=== PATIENT | female | born 1970 | race Caucasian/White ===

== ENCOUNTER 2019-01-21 12:45 | Outpatient (CLI) | END 2019-01-21 12:46 | disposition home or self-care (01) | LOC: RHC-LAB 12:45 | PROVIDERS: ATTEND General Practice | DX: G47.00 Insomnia, unspecified (principal); F41.9 Anxiety disorder, unspecified; F33.2 Major depressive disorder, recurrent severe without psychotic features; E03.9 Hypothyroidism, unspecified | CPT/HCPCS: 36415; 80053; 80061; 81001; 84439; 84443; 85025 ==

== ENCOUNTER 2019-02-04 16:42 | Outpatient (CLI) | END 2019-02-04 16:43 | disposition home or self-care (01) | LOC: RHC-LAB 16:42 | PROVIDERS: ATTEND General Practice | DX: G47.00 Insomnia, unspecified (principal); F41.9 Anxiety disorder, unspecified; R63.8 Other symptoms and signs concerning food and fluid intake; D64.9 Anemia, unspecified; R94.5 Abnormal results of liver function studies; E03.9 Hypothyroidism, unspecified | CPT/HCPCS: 36415; 80178 ==

== ENCOUNTER 2019-05-31 08:14 | Inpatient (IN) ==
[2019-05-31 08:52] VITALS: BMI 34.2
[2019-05-31] MEDS ORDERED: MAG-OX PO STA (10:17)
[2019-05-31] MEDS ORDERED: DULCOLAX RC STA (10:26)
[2019-05-31] MEDS: XANAX PO SCH ×2 (10:40→20:39)
[2019-05-31] MEDS: NORVASC PO SCH (10:40)
[2019-05-31] MEDS: COZAAR PO SCH ×2 (10:41→20:39)
[2019-05-31] MEDS: INFUVITE ADULT 10 ML in D5%-1/2NS-KCL 40 MEQ/L IV SOL 1,000 ML IV SCH ×2 (10:48→20:42)
--- NOTE | 2019-05-31 11:31 | DI ---
EXAM: Two-view chest HISTORY: Shortness of breath COMPARISON: None. FINDINGS: The heart is normal in size. Atherosclerotic changes are seen involving the aortic arch. There is mild elevation of the right hemidiaphragm. The lungs are clear bilaterally. IMPRESSION: No evidence of active pulmonary disease
[2019-05-31] MEDS ORDERED: PROTONIX PO STA (15:46)
[2019-05-31] MEDS ORDERED: TYLENOL PO STA (15:47)
[2019-05-31] MEDS ORDERED: INFUVITE ADULT IV ONE (20:42)
[2019-05-31] MEDS ORDERED: SEROQUEL PO SCH (21:00)
[2019-06-01] MEDS: PROTONIX PO SCH ×2 (06:13→16:50)
[2019-06-01] MEDS: SYNTHROID PO SCH ×2 (06:13)
[2019-06-01] MEDS ORDERED: INFUVITE ADULT IV ONE ×2 (07:10→17:39)
[2019-06-01] MEDS: INFUVITE ADULT 10 ML in D5%-1/2NS-KCL 40 MEQ/L IV SOL 1,000 ML IV SCH ×2 (07:17→17:43)
[2019-06-01] MEDS ORDERED: LEVOTHYROXINE 125 MCG PO SCH (09:00)
[2019-06-01] MEDS: COZAAR PO SCH ×2 (10:01→21:04)
[2019-06-01] MEDS: XANAX PO SCH ×2 (10:02→21:04)
[2019-06-01] MEDS: NORVASC PO SCH (10:02)
--- NOTE | 2019-06-01 11:23 | CT ---
EXAM: CT Head HISTORY: Headache COMPARISON: None TECHNIQUE: CT head performed without contrast FINDINGS: There is no mass effect, midline shift, or intracranial hemmorhage. Deleon white differenti ation is preserved. There is no extra-axial collection. The ventricles, sulci, and basal cisterns a re patent and symmetric. There is no depressed calvarial fracture. The mastoid air cells are clear. The visualized paranasal sinuses are clear. IMPRESSION: No acute intracranial abnormality.
--- NOTE | 2019-06-01 11:36 | DI ---
EXAM: Single contrast esophagram. History: Difficulty swallowing. Technique: Multiple sonographic images through the esophagus were obtained. Color duplex Doppler wa s used to interrogate vascular flow. Findings: The course and caliber of the esophagus are within normal limits. No mucosal lesions or filling defe cts identified. Multiple episodes of esophageal spasm. No hiatal hernia. No gastroesophageal reflu x was observed during the course of this examination. Impression: Esophageal spasm
[2019-06-01] MEDS: K-DUR PO SCH ×2 (12:07→16:50)
[2019-06-01] MEDS ORDERED: SEROQUEL PO SCH (21:00)
[2019-06-01] MEDS: SEROQUEL PO SCH (21:04)
[2019-06-02] MEDS ORDERED: INFUVITE ADULT IV ONE ×2 (03:16→15:14)
[2019-06-02] MEDS: INFUVITE ADULT 10 ML in D5%-1/2NS-KCL 40 MEQ/L IV SOL 1,000 ML IV SCH ×2 (03:17→15:18)
[2019-06-02] MEDS: PROTONIX PO SCH ×2 (05:47→16:54)
[2019-06-02] MEDS: SYNTHROID PO SCH ×2 (05:47)
[2019-06-02] MEDS: NORVASC PO SCH (08:00)
[2019-06-02] MEDS: COZAAR PO SCH ×2 (08:00→20:59)
[2019-06-02] MEDS: SEROQUEL PO SCH ×2 (08:00→20:59)
[2019-06-02] MEDS: XANAX PO SCH ×2 (08:00→20:59)
[2019-06-02] MEDS: K-DUR PO SCH ×2 (08:00→16:54)
[2019-06-02] MEDS: INDERAL PO SCH (20:59)
[2019-06-03] MEDS ORDERED: INFUVITE ADULT IV ONE ×2 (00:48→11:23)
[2019-06-03] MEDS: INFUVITE ADULT 10 ML in D5%-1/2NS-KCL 40 MEQ/L IV SOL 1,000 ML IV SCH ×2 (00:53→11:44)
[2019-06-03] MEDS: PROTONIX PO SCH (05:56)
[2019-06-03] MEDS: SYNTHROID PO SCH ×2 (05:56)
[2019-06-03] MEDS: INDERAL PO SCH (08:53)
[2019-06-03] MEDS: K-DUR PO SCH (08:53)
[2019-06-03] MEDS: NORVASC PO SCH (08:53)
[2019-06-03] MEDS: XANAX PO SCH (08:53)
[2019-06-03] MEDS: COZAAR PO SCH (08:54)
[2019-06-03] MEDS: SEROQUEL PO SCH (08:58)
--- NOTE | 2019-06-03 09:27 | PN ---
DATE OF SERVICE: 06/02/19 SUBJECTIVE: The patient is alert and responsive, not dyspneic or tachypneic and no cyanosis. Her pulse rate has increased slightly. This may be due to the Seroquel probably. OBJECTIVE: Lungs are clear. Heart is normal sinus rhythm. Abdomen no significant tenderness although she is still sensitive below the umbilicus. Her appetite has increased. She seemed to be much more alert. She now expresses what her needs, that is an improvement from where she was when she didn't care what happened. LUISITO
--- NOTE | 2019-06-03 09:42 | PN ---
DATE OF SERVICE: 06/01/19 SUBJECTIVE: Today, the patient is resting in her room. She still reports some episodes of confusion at times. She does feel like she is a bit less confused. Today, her vital signs are stable. Temperature 90.2, pulse rate 109, blood pressure has been up and down. At 5:22 this morning it was 146/78; at around 11 o'clock it was 136/92 and then it jumped up to 75/113 and then was 155/101. She does have some labile blood pressure readings up and down. Today she did go for an esophagram. She is having some hard times eating solids. She did have a recent admission in [place] for concerns for possible lithium toxicity. These records have been requested by Dr. Calhoun. We are waiting to get those records. The patient reports that sometimes liquids are any foods with consistency will cause pain, most of the time of soft foods will be fine. She is requesting a chicken salad sandwich. I will discuss this with Dr. Calhoun and see if we can order a chicken salad sandwich for the patient. She did tell me that she ate some sherbert today and that did not hurt her to eat that. She is having some issues with severe depression. We did talk about that today. We are going to work on getting her a mental health evaluation. She denies being suicidal, just complains of in general being depressed. Her potassium today was low at 2.32. Per Dr. Calhoun, replacement has been ordered. Prior to this it was 2.19. Magnesium 1.91. On 05/31/19, white count was 12.73, hemoglobin 10, hematocrit 31.3, platelet count 419. Urinalysis was negative. I did discuss with Dr. Calhoun plans were to increase the Seroquel to 50 mg at night. She is having issues with depression and will need mental health involved in her care. She has been admitted for episodes of confusion, electrolyte imbalance and hypertension evaluation. Further orders and recommendations per Dr. Calhoun. History and physical to follow. [facility]
--- NOTE | 2019-06-03 09:57 | PN ---
DATE OF SERVICE: 06/02/19 SUBJECTIVE: Today vital signs are stable. Her blood pressure at 12:52 this afternoon 126/85 (left arm), temperature 97.9, pulse rate 109. This morning at 5:15 her blood pressure 120/78, respiratory rate 20, 02 sat 99% on room air. Today, no CBC was drawn. As far as a chemistry panel, a potassium level was drawn this morning and was 3.19. This is an improvement from yesterday potassium level of 2.32. She has continued to have some mild jerking movement. She does report her swallowing is better. She is requesting some rainbow sherbert. She is swallowing soft diet without any problems. She is requesting a Coke and is feeling like she can swallow this Coke without any difficulty. She does not feel much of a difference with her depression. She denies any suicidal thoughts. Will d/c the honey thick liquid diet. I will discuss this with Dr. Calhoun. OBJECTIVE: Today on exam her lungs are clear. Heart regular rate and rhythm. Abdomen is soft and nontender. Bowel sounds are positive all four quadrants. MTDD
[2019-06-03 15:18] VITALS: BP 137/88; TEMP 97.8
--- NOTE | 2019-06-05 11:54 | DS ---
DATE OF SERVICE: 06/03/19 FINAL DIAGNOSES: 1. SEVERE HYPOKALEMIA THAT HAS BEEN CORRECTED. NORMAL POTASSIUM LEVEL TODAY. 2. MUSCULAR CONTRACTION, INTERMITTENT, MAYBE DUE TO RECENT LITHIUM TOXICITY. SHE WAS ADMITTED AT A HOSPITAL IN [place] FOR LITHIUM TOXICITY. 3. CONFUSION. 4. SEVERE DEPRESSION THAT IS BIPOLAR IN NATURE. WE PLAN ON REFERRING TO AN OUTPATIENT MENTAL HEALTH CLINIC. I DID TRY TO CALL [facility] AND THEY CURRENTLY DO NOT HAVE THE INTENSIVE OUTPATIENT PROGRAM AT THIS TIME. I DID PASS THIS ALONG TO DR. CALHOUN AND HE IS AWARE OF THAT. HE IS GOING TO LOOK INTO OTHER SERVICES FOR THE PATIENT FOR MENTAL HEALTH SERVICES. 5. MULTIPLE EPISODES OF ESOPHAGEAL SPASM FOR ESOPHAGRAM WITH DYSPHAGIA. THIS HAS IMPROVED DURING HOSPITALIZATION. 6. HYPERTENSION WITH ADJUSTMENT OF BLOOD PRESSURE MEDICINES WHILE INPATIENT. WE WILL CONTINUE TO MONITOR BLOOD PRESSURE CLOSELY WITH FOLLOWUP ON SATURDAY OF NEXT WEEK. MAY NEED FURTHER MEDICINE ADJUSTMENT. 7. HYPOTHYROIDISM. BRIEF HISTORY OF PRESENT ILLNESS/HOSPITAL COURSE: Ms. Chowdhury is a pleasant 49-year-old patient of Dr. Calhoun, who was admitted to the hospital with the above issues with electrolyte disturbances, muscular contraction, episodes of dysphagia as well as confusion and hypertension as well. She is also having issues of bipolar depression and episodes of confusion. Her electrolytes were replaced while she was in the hospital. Blood pressure medicines were adjusted. Her diet has been slowly advanced. She is able to tolerate soft diet without any difficulty. Her potassium level has corrected itself with electrolyte replacement. It is currently normal at 3.79. Her magnesium level has corrected itself now to 1.82. Medicines have been adjusted while she was in the hospital. The discharge medications are as follows. She will currently be discharged home on Inderal 10 mg twice a day, Seroquel 50 mg twice a day, Losartan 50 mg twice a day, Levothyroxine 125 mcg daily, Norvasc 5 mg daily, Lorazepam 0.5 mg one p.o. twice a day p.r.n. #60 was called in with no refills. A one month prescription was given of all medicines. Dr. Calhoun did call and talk to the pharmacist and ask that only a five day prescription be given of the medicines. She will [id number] in the office on Saturday. Dr. Calhoun did let me know that he was planning on adding Depakote maybe at a later date to help with control of the depression and planned on continuing to increase the Seroquel prescription to help manage the depression. Today, at discharge blood pressure was elevated 168/100. The patient understands to continue to monitor her blood pressure, temperature 99.5, pulse rate 102, respirations 18. I did discuss her laboratory findings. On admission her potassium was 2.19. Her magnesium level was normal at 1.70 on admission. White count was elevated at 12.73 on admission. Her hemoglobin slightly low at 10 and hematocrit slightly low at 31.3 and that was on admission. DISCHARGE DIET: Continue soft diet. DISCHARGE ACTIVITY: Gradually resume normal activity levels with emphasis on fall precautions. DISCHARGE INSTRUCTIONS: 1. The patient will followup Saturday in the office with labs at that time. 2. She will need an appointment with Mental Health services and we will be working on trying to get an appointment with Mental Health services. She denies suicidal thoughts, ideations or any homicidal thoughts at discharge. TIME SPENT: GREATER THAN 30 MINUTES MTDD
--- NOTE | 2019-06-09 13:58 | HP ---
DATE OF SERVICE: 05/31/19 CHIEF COMPLAINT: Confusion, depression, high blood pressure. HISTORY OF PRESENT ILLNESS: Ms. Chowdhury was a direct admit on the date of admission for increasing confusion. She was having some difficulty with swallowing, elevations in blood pressure, some worsening depression with bipolar symptoms. It was felt that she needed to be admitted to the hospital for further evaluation and workup. Her laboratories and initial diagnostic testing revealed a severely low potassium level of 2.19. Sodium was normal at 137.9, BUN 4.3 and creatinine 0.63. Her LFTs are normal. White count was slightly elevated at 12.73, hemoglobin 10, hematocrit 31.3, platelet count 419. She did have a chest x-ray completed that showed no evidence of active pulmonary disease. Because of her difficulty swallowing, an esophagram was completed. It did show esophageal spasms. A head CT was performed because of the confusion. It did not show any acute abnormalities. IV fluids of potassium would be initiated and potassium replacement will be started. PAST MEDICAL HISTORY: Anxiety Bipolar disorder Chronic arthritis Depression Heart disease High cholesterol Hypertension Hypothyroidism Insomnia Knee pain Seasonal allergies Meniscal tear in the knee PAST SURGICAL HISTORY: Appendectomy Arthroscopy right knee 2016, left knee 2014 Cholecystectomy Tubal ligation FAMILY HISTORY: Breast cancer in mother as well as hypertension. Father with hypertension and myocardial infarction. SOCIAL HISTORY: Nonsmoker. There are no reports of alcohol or drug abuse. MEDICATIONS: (HOME) I did discuss with Dr. Calhoun regarding the patient's home medicines she was taking prior to admission. We did review those. She was taking Levothyroxine 125 mcg daily, Losartan 50 mg twice a day and Inderal 10 mg twice a day. She was not taking any kind of depression or psychiatric medicines on any regular basis. ALLERGIES: CIPRO REVIEW OF SYSTEMS: CONSTITUTIONAL: No reports of fever, chills, or nightsweats. She has had some weight loss since I last saw her. I am unsure how much that weight was. HEENT: There were no reports of headache, nasal drainage or sore throat. No reports of any visual changes. CARDIOVASCULAR: No reports of chest pain or irregular rhythm. No palpitations. No peripheral edema. RESPIRATORY: No complaints of any shortness of breath. Denies any cough or congestion. I do not see any history of lung disease. GASTROINTESTINAL: No complaints of abdominal pain, nausea or vomiting. Denies constipation. or diarrhea. No reports of blood in the stool. GENITOURINARY: No reports of dysuria or UTI symptoms. MUSCULOSKELETAL: She was having some jerking, muscle twitching most likely due to electrolyte disturbances. NEUROLOGIC: She was having episode of confusion. No reports of any other neurological deficits reports besides she is having some worsening depression. She denies any suicidal thoughts. She is having worsening anxiety. ENDOCRINE: No reports of any history of diabetes mellitus. She does have a history of hypothyroidism. INTEGUMENT: No reports of any unusual rashes or wounds. PHYSICAL EXAMINATION: GENERAL: She is alert. She is present. She is in no acute distress. VITAL SIGNS: On admission, temperature 98.6, pulse rate 112, blood pressure 165/106, respiratory rate 16, 02 sat 97% on room air. Height 5'8", Weight 224 lbs. I did see weight loss from the last visit in the hospital 01/2019 and at that time she was 251 lbs. HEENT: Head normocephalic, atraumatic. Conjunctivae clear. NECK: Supple. No masses appreciated. No carotid bruits are auscultated. CARDIOVASCULAR: S1, S2 regular rate and rhythm. No murmurs auscultated. LUNGS: Clear, no acute distress. ABDOMEN: Soft. Nontender. Bowel sounds are positive. No rigidity or rebound tenderness. NEUROLOGIC: She is a bit slow to respond. There is occasional confusion with conversation and scattered thoughts. SKIN: Warm and dry. No overt rashes or lesions noted on exam. I did discuss the labs in the HPI as well as diagnostic testing. ASSESSMENT: 1. Significant hypokalemia. 2. Electrolyte disturbances. 3. Hypertension 4. Confusion. 5. Esophageal dysphagia. 6. Depression and Bipolar. PLAN: 1. Admit the patient. 2. Will start IV fluids. 3. We need to work on getting the patient set up with mental health services. 4. Will start Seroquel and start adjusting that to help with depression. 5. Get esophagram and start initiating soft diet and again request potassium. 6. Follow labs closely. Magnesium was normal. 7. Further orders and recommendations per Dr. Calhoun. TIME SPENT: GREATER THAN 65 MINUTES MTDD
== END 2019-06-03 15:13 | disposition home or self-care (01) | DRG 641 ==
LOC: MEDSURG B 08:14
PROVIDERS: ADMIT General Practice; ATTEND General Practice
DX: E87.8 Other disorders of electrolyte and fluid balance, not elsewhere classified; E03.9 Hypothyroidism, unspecified; I10 Essential (primary) hypertension; F32.9 Major depressive disorder, single episode, unspecified; E87.6 Hypokalemia; M62.40 Contracture of muscle, unspecified site; R13.10 Dysphagia, unspecified; R41.0 Disorientation, unspecified

== ENCOUNTER 2019-07-11 17:43 | Inpatient (IN) ==
[2019-07-11] MEDS ORDERED: SODIUM CHLORIDE 1,000 ML IV STA (18:23)
--- NOTE | 2019-07-11 18:23 | ED.PDOC ---
General <JEFE MARTINES MD - Last Filed: 07/15/19 16:21> ED Provider: Dr. JEFE MARTINES Chief Complaint: Extremity Swelling/Pain Stated Complaint: 49 years old white female c/o shortness of breath, dyspnea on exertion and lower ext edema x 1 day . she was in the [facility] for in pt psych. Time Seen by Physician: 18:00 (seen with yesenia roman at all times denied control meds , negative hx for DVT OR P.E.) Mode of Arrival: Walk-In Information Source: Patient Exam Limitations: No limitations Primary Care Provider: JUVE ESCUDERO MD Nursing and Triage Documentation Reviewed and Agree: Yes Does patient meet sepsis criteria?: No If yes, has appropriate treatment been initiated?: No System Inflammatory Response Syndrome: Not Applicable Sepsis Protocol: For patient's 13 years and over: Temp is 96.8 and below OR 101 and greater Pulse >90 BPM Resp >20/minute Acutely Altered Mental Status Are patient's symptoms suggestive of a new infection, such as: -Pneumonia -Skin, Soft Tissue -Endocarditis -UTI -Bone, Joint Infection -Implantable Device -Acute Abdominal Infection -Wound Infection -Meningitis -Blood Stream Catheter Infection -Unknown Respiratory Complaint Exam <JEFE MARTINES MD - Last Filed: 07/15/19 16:21> Shortness of Air Complaint/Exam Onset/Duration: 1 day Symptoms Are: Still present Timing: Constant Initial Severity: Mild Current Severity: Mild Character: Reports Dyspnea at rest and Dyspnea on exertion Aggravating: Reports Movement Alleviating: Reports Oxygen and Upright position Associated Signs and Symptoms: Reports Chest pain with cough, Chest pain (1/10 central), Calf swelling (bilateral) and Edema (lower ext bilateral); Denies Cough, Wheezing, Fever, Chills, Diaphoresis, Nasal congestion, Dizziness, Calf pain, Rapid breathing, Labored breathing and Decreased intake Pulmonary Embolism Risk Factors: Reports None Cardiac Risk Factors: Reports None Pseudomonas Risk Factors: Reports None Tuberculosis Risk Factors: Reports None Home Oxygen Use: No Recent Stress Test: No Recent Echo/LV Function: No Respiratory Distress: None Stridor Present: No Tracheal Deviation: No Subcutaneous Emphysema: No Accessory Muscle Use: No Retractions: Not Present Diminished Breath Sounds: Yes Prolonged Expiratory Phase: No Unable to Speak Full Sentences: No Fatigue: No Leg Swelling: Yes Grunting Respirations: No Kussmaul Respirations: No Differential Diagnoses: CHF, Pulmonary Edema, Pneumonia and Pulmonary Embolism Quality Indicator For Non-Traumatic Chest Pain/Syncope: EKG Performed Quality Indicators For Pneumonia/CAP: Vital signs and Mental status assessed Review of Systems <JEFE MARTINES MD - Last Filed: 07/15/19 16:21> Review Of Systems Constitutional: Reports No symptoms Eyes: Reports No symptoms Ears, Nose, Mouth, Throat: Reports No symptoms Respiratory: Reports Short of air Cardiac: Reports No symptoms GI: Reports No symptoms : Reports No symptoms Musculoskeletal: Reports Other (lower leg edema bilateral) Skin: Reports No symptoms Neurological: Reports No symptoms Endocrine: Reports No symptoms Hematologic/Lymphatic: Reports No symptoms All Other Systems: Reviewed and Negative PFSH <JEFE MARTINES MD - Last Filed: 07/15/19 16:21> Medical History (Updated 07/12/19 @ 00:25 by DARIEN CARTY) DVT (deep venous thrombosis) (Acute) Anxiety Bipolar disorder Chronic arthritis Depression Heart disease High cholesterol Hypertension Hypothyroidism Insomnia Knee pain Seasonal allergies Tear meniscus knee Social History (Updated 07/12/19 @ 00:23 by DARIEN CARTY) Smoking and tobacco status: Former smoker Substance use type: does not use Physical Exam <JEFE MARTINES MD - Last Filed: 07/15/19 16:21> Physical Exam Appearance: Well-appearing, No pain distress and Well-nourished Ill-appearing: Mild Pain Distress: Mild Eyes: JOE, EOMI and Conjunctiva clear ENT: Ears normal, Nose normal and Oropharynx normal Neck: Supple Respiratory: Airway patent, Breath sounds clear, Breath sounds equal and Respirations nonlabored Cardiovascular: RRR, Pulses normal, No rub and No murmur GI/: Soft, Nontender, No masses, Bowel sounds normal and No Organomegaly Musculoskeletal: Normal strength, ROM intact, No edema and No calf tenderness Skin: Warm, Dry and Normal color Neurological: Sensation intact, Motor intact, Reflexes intact, Cranial nerves intact, Alert and Oriented Psychiatric: Affect appropriate and Mood appropriate Critical Care Note <JEFE MARTINES MD - Last Filed: 07/15/19 16:21> Critical Care Note Total Time (mins): 0 Course <JEFE MARTINES MD - Last Filed: 07/15/19 16:21> Course Hematology/Chemistry: 07/15/19 05:05 11/27/19 05:05 Orders, Labs, Meds: Lab Review 07/11/19 07/11/19 07/11/19 18:22 18:30 18:39 WBC 10.08 RBC 3.43 L Hgb 9.0 L Hct 29.9 L MCV 87.2 MCH 26.2 L MCHC 30.1 L RDW Coeff of [place] 14.8 Plt Count 367 Neutrophils % (Manual) 76.0 H Band Neutrophils % 3.0 Lymphocytes % (Manual) 15.0 Metamyelocytes % 1.0 Myelocytes % 5.0 H Plt Morphology Comment Occ large Polychromasia Hypochromasia 1+ Anisocytosis 1+ PT INR APTT Puncture Site Rrad O2 Saturation 95.0 ABG pH 7.414 ABG pCO2 29.9 L ABG pO2 73.0 L ABG HCO3 19.1 L ABG Total CO2 20 L ABG Base Excess -5 L Iban Test + FiO2 % 21.0 Sodium Potassium Chloride Carbon Dioxide Anion Gap BUN Creatinine Estimated GFR (MDRD) BUN/Creatinine Ratio Glucose Lactic Acid Calcium Total Bilirubin AST ALT Alkaline Phosphatase Total Creatine Kinase Troponin I NT-Pro-B Natriuret Pep Total Protein Albumin Globulin Albumin/Globulin Ratio Procalcitonin TSH Free T4 Serum , Qual Influ A Molecular Assay Negative by naat Influ B Molecular Assay Negative by naat 07/11/19 07/11/19 07/11/19 18:39 18:39 18:39 WBC RBC Hgb Hct MCV MCH MCHC RDW Coeff of [place] Plt Count Neutrophils % (Manual) Band Neutrophils % Lymphocytes % (Manual) Metamyelocytes % Myelocytes % Plt Morphology Comment Polychromasia Hypochromasia Anisocytosis PT 9.2 L INR 0.94 APTT 23.9 Puncture Site O2 Saturation ABG pH ABG pCO2 ABG pO2 ABG HCO3 ABG Total CO2 ABG Base Excess Iban Test FiO2 % Sodium 138.8 Potassium 4.06 Chloride 104.8 Carbon Dioxide 22.3 Anion Gap 15.76 BUN 11.6 Creatinine 0.66 Estimated GFR (MDRD) 96.00 BUN/Creatinine Ratio 17.57 Glucose 304.6 H Lactic Acid Calcium 9.36 Total Bilirubin 0.27 AST 38.9 H ALT 33.1 Alkaline Phosphatase 62.9 Total Creatine Kinase 36.7 Troponin I < 0.012 NT-Pro-B Natriuret Pep Total Protein 7.39 Albumin 4.42 Globulin 2.97 Albumin/Globulin Ratio 1.48 Procalcitonin < 0.05 TSH 0.137 L Free T4 Serum , Qual Influ A Molecular Assay Influ B Molecular Assay 07/11/19 07/11/19 07/11/19 18:39 18:39 18:39 WBC RBC Hgb Hct MCV MCH MCHC RDW Coeff of [place] Plt Count Neutrophils % (Manual) Band Neutrophils % Lymphocytes % (Manual) Metamyelocytes % Myelocytes % Plt Morphology Comment Polychromasia Hypochromasia Anisocytosis PT INR APTT Puncture Site O2 Saturation ABG pH ABG pCO2 ABG pO2 ABG HCO3 ABG Total CO2 ABG Base Excess Iban Test FiO2 % Sodium Potassium Chloride Carbon Dioxide Anion Gap BUN Creatinine Estimated GFR (MDRD) BUN/Creatinine Ratio Glucose Lactic Acid 3.87 H Calcium Total Bilirubin AST ALT Alkaline Phosphatase Total Creatine Kinase Troponin I NT-Pro-B Natriuret Pep Total Protein Albumin Globulin Albumin/Globulin Ratio Procalcitonin TSH Free T4 1.06 Serum , Qual Negative Influ A Molecular Assay Influ B Molecular Assay 07/11/19 18:39 WBC RBC Hgb Hct MCV MCH MCHC RDW Coeff of [place] Plt Count Neutrophils % (Manual) Band Neutrophils % Lymphocytes % (Manual) Metamyelocytes % Myelocytes % Plt Morphology Comment Polychromasia Hypochromasia Anisocytosis PT INR APTT Puncture Site O2 Saturation ABG pH ABG pCO2 ABG pO2 ABG HCO3 ABG Total CO2 ABG Base Excess Iban Test FiO2 % Sodium Potassium Chloride Carbon Dioxide Anion Gap BUN Creatinine Estimated GFR (MDRD) BUN/Creatinine Ratio Glucose Lactic Acid Calcium Total Bilirubin AST ALT Alkaline Phosphatase Total Creatine Kinase Troponin I NT-Pro-B Natriuret Pep 57.000 Total Protein Albumin Globulin Albumin/Globulin Ratio Procalcitonin TSH Free T4 Serum , Qual Influ A Molecular Assay Influ B Molecular Assay Orders Category Date Time Status ADMIT PATIENT INPATIENT .TO [facility] (MONITORED BED) ADMISSION 07/11/19 21:05 Active ABG DRAW REQUEST Stat CARDIO 07/11/19 18:22 Completed EKG-(ED ONLY) Stat CARDIO 07/11/19 18:22 Completed OXYGEN Routine CARDIO 07/11/19 21:08 Completed ACTIVITY .Up ad Mera CARE 07/11/19 21:06 Active GIVE HS SNACK 2100 CARE 07/11/19 21:07 Active INTAKE & OUTPUT Q8HR CARE 07/11/19 21:06 Active NPO REMINDER: IMAGING ONCE CARE 07/11/19 18:48 Completed TELEMETRY MONITORING TELE CARE 07/11/19 21:05 Active VITAL SIGNS Q4HR CARE 07/11/19 21:06 Active ADA 1800 ANN MARIE. DIET DIETARY 07/11/19 Breakfast Completed HS SNACK DIETARY 07/11/19 Dinner Completed ED IV/MEDIPORT/POWERPORT .ONCE EMERGENCY 07/11/19 18:23 Active ABG Stat LAB 07/11/19 18:22 Completed BLOOD CULTURE Stat LAB 07/11/19 19:00 Results CBC W/ AUTO DIFF Stat LAB 07/11/19 18:39 Completed COMPREHENSIVE METABOLIC PANEL Stat LAB 07/11/19 18:39 Completed CREATINE KINASE Stat LAB 07/11/19 18:39 Completed FLU A/B MOLECULAR Stat LAB 07/11/19 18:30 Completed FREE T4 (FREE THYROXINE) Stat LAB 07/11/19 18:39 Completed LACTIC ACID Stat LAB 07/11/19 18:39 Completed MANUAL DIFFERENTIAL Stat LAB 07/11/19 18:39 Completed MOLECULAR GROUP A STREP Stat LAB 07/11/19 18:30 Completed NT-PROBNP Stat LAB 07/11/19 18:39 Completed PARTIAL THROMBOPLASTIN TIME Stat LAB 07/11/19 18:39 Completed PROCALCITONIN Stat LAB 07/11/19 18:39 Completed PT WITH INR Stat LAB 07/11/19 18:39 Completed SERUM Stat LAB 07/11/19 18:39 Completed THYROID STIMULATING HORMONE Stat LAB 07/11/19 18:39 Completed TROPONIN I Stat LAB 07/11/19 18:39 Completed 0.9 % Sodium Chloride [Saline Flush] MEDS 07/11/19 18:23 Discontinued 1 syr IVF PRN PRN Albuterol Sulfate 0.042% Neb [Albuterol 0.042% Neb] MEDS 07/12/19 00:00 Discontinued 1.25 mg NEB RTQ6H Ceftriaxone/D5w 1 gm Premix [Rocephin 1 gm/50 ml D5w] MEDS 07/12/19 09:00 Discontinued 1 gm in 50 ml IV DAILY Sodium Chloride 0.9% [Sodium Chloride] 1,000 ml MEDS 07/11/19 18:23 Discontinued IV 125 mls/hr CHEST, 1V AP ONLY Stat RADS 07/11/19 18:[address] CHEST PE PROTOCOL Stat RADS 07/11/19 18:48 Completed Medications Discontinued Medications Generic Name Dose Route Start Last Admin Trade Name Freq PRN Reason Stop Dose Admin Acetaminophen 650 mg 07/13/19 20:01 07/13/19 20:41 Tylenol PO 650 mg Q6H PRN Administration pain Albuterol Sulfate 1.25 mg 07/12/19 00:00 07/12/19 05:44 Albuterol 0.042% Neb NEB Not Given RTQ6H DILLON Amlodipine Besylate 5 mg 07/12/19 09:00 07/12/19 09:01 Norvasc PO 5 mg DAILY DILLON Administration Amlodipine Besylate 2.5 mg 07/13/19 09:00 07/15/19 09:07 Norvasc PO 2.5 mg DAILY DILLON Administration Azithromycin 500 mg 07/12/19 09:00 07/14/19 09:28 Zithromax PO 07/15/19 08:59 500 mg DAILY DILLON Administration Benzocaine/Menthol 2 lozenge 07/13/19 20:27 07/13/19 20:41 Cepacol Sore Throat Lozenge MUCOUSMEMB 2 lozenge PRN PRN Administration sore throat Carvedilol 12.5 mg 07/12/19 08:00 07/15/19 09:08 Coreg PO 12.5 mg BIDWM DILLON Administration Clonazepam 0.5 mg 07/11/19 23:30 07/15/19 09:08 Klonopin PO 0.5 mg TID DILLON Administration Duloxetine HCl 60 mg 07/14/19 10:30 07/15/19 09:09 Cymbalta PO 60 mg DAILY DILLON Administration Enoxaparin Sodium 40 mg 07/12/19 09:00 07/15/19 09:07 Lovenox SUBCUT 40 mg DAILY DILLON Administration Furosemide 40 mg 07/13/19 09:55 07/13/19 10:59 Lasix IVP 07/13/19 09:56 40 mg ONCE STA Administration Furosemide 40 mg 07/15/19 11:12 07/15/19 11:29 Lasix Tab PO 07/15/19 11:13 40 mg ONCE STA Administration Sodium Chloride 1,000 mls @ 125 mls/hr 07/11/19 18:23 07/11/19 19:37 Sodium Chloride IV 07/12/19 02:22 125 mls/hr .Q8H STA Administration CEFTRIAXONE/D5W 1 GM PREMIX 1 gm in 50 mls @ 75 mls/hr 07/12/19 09:00 07/14 09:25 Rocephin 1 Gm/50 Ml D5w IV 07/15/19 08:59 75 mls/hr DAILY DILLON Administration Vancomycin HCl 1 gm/ Sodium 250 mls @ 250 mls/hr 07/11/19 21:12 07/11/19 23:30 Chloride IV 07/11/19 22:11 250 mls/hr ONCE STA Administration Multivitamins/Minerals 10 ml/ 1,010 mls @ 100 mls/hr 07/12/19 06:00 07/13/19 00:02 Sodium Chloride IV 100 mls/hr .Q10H6M DILLON Administration Insulin Human Regular 0 unit 07/11/19 21:14 07/15/19 12:08 Humulin R SUBCUT 1 unit PRN PRN Administration Hyperglycemia Protocol Lamotrigine 175 mg 07/11/19 23:30 07/14/19 20:52 Lamictal PO 175 mg BEDTIME DILLON Administration Levothyroxine Sodium 100 mcg 07/12/19 06:30 07/15/19 06:18 Synthroid PO 100 mcg 0630 DILLON Administration Levothyroxine Sodium 25 mcg 07/12/19 06:30 07/15/19 06:19 Synthroid PO 25 mcg 0630 DILLON Administration Losartan Potassium 50 mg 07/12/19 09:00 07/15/19 09:08 Cozaar PO 50 mg BID DILLON Administration Olanzapine 10 mg 07/11/19 23:30 07/15/19 09:08 Zyprexa PO 10 mg DAILY DILLON Administration Pantoprazole Sodium 40 mg 07/13/19 07:30 07/15/19 06:19 Protonix PO 40 mg BIDAC DILLON Administration Propranolol HCl 10 mg 07/12/19 09:00 Inderal PO BID DILLON Quetiapine Fumarate 50 mg 07/12/19 09:00 Seroquel PO BID DILLON Silver Sulfadiazine 1 applic 07/14/19 15:00 Silvadene Cream TP BID DILLON Sodium Chloride 1 syr 07/11/19 18:23 Saline Flush IVF PRN PRN To flush IV Sodium Chloride 1 syr 07/13/19 13:00 07/15/19 06:19 Saline Flush IVF 1 syr Q8HR DILLON Administration Zolpidem Tartrate 10 mg 07/11/19 23:13 07/14/19 20:53 Ambien PO 10 mg BEDTIME PRN Administration Insomnia Vital Signs: Temp Pulse Resp BP Pulse Ox 07/11/19 19:02 119 H 26 H 118/75 07/11/19 17:44 99.1 F 128 H 32 H 162/89 H 94 L <VIPUL MCCLELLAND MD - Last Filed: 07/11/19 21:05> Course Orders, Labs, Meds: Lab Review 07/11/19 07/11/19 07/11/19 18:22 18:30 18:39 WBC 10.08 RBC 3.43 L Hgb 9.0 L Hct 29.9 L MCV 87.2 MCH 26.2 L MCHC 30.1 L RDW Coeff of [place] 14.8 Plt Count 367 Neutrophils % (Manual) 76.0 H Band Neutrophils % 3.0 Lymphocytes % (Manual) 15.0 Metamyelocytes % 1.0 Myelocytes % 5.0 H Plt Morphology Comment Occ large Polychromasia Hypochromasia 1+ Anisocytosis 1+ PT INR APTT Puncture Site Rrad O2 Saturation 95.0 ABG pH 7.414 ABG pCO2 29.9 L ABG pO2 73.0 L ABG HCO3 19.1 L ABG Total CO2 20 L ABG Base Excess -5 L Iban Test + FiO2 % 21.0 Sodium Potassium Chloride Carbon Dioxide Anion Gap BUN Creatinine Estimated GFR (MDRD) BUN/Creatinine Ratio Glucose Lactic Acid Calcium Total Bilirubin AST ALT Alkaline Phosphatase Total Creatine Kinase Troponin I NT-Pro-B Natriuret Pep Total Protein Albumin Globulin Albumin/Globulin Ratio Procalcitonin TSH Free T4 Serum , Qual Influ A Molecular Assay Negative by naat Influ B Molecular Assay Negative by naat 07/11/19 07/11/19 07/11/19 18:39 18:39 18:39 WBC RBC Hgb Hct MCV MCH MCHC RDW Coeff of [place] Plt Count Neutrophils % (Manual) Band Neutrophils % Lymphocytes % (Manual) Metamyelocytes % Myelocytes % Plt Morphology Comment Polychromasia Hypochromasia Anisocytosis PT 9.2 L INR 0.94 APTT 23.9 Puncture Site O2 Saturation ABG pH ABG pCO2 ABG pO2 ABG HCO3 ABG Total CO2 ABG Base Excess Iban Test FiO2 % Sodium 138.8 Potassium 4.06 Chloride 104.8 Carbon Dioxide 22.3 Anion Gap 15.76 BUN 11.6 Creatinine 0.66 Estimated GFR (MDRD) 96.00 BUN/Creatinine Ratio 17.57 Glucose 304.6 H Lactic Acid Calcium 9.36 Total Bilirubin 0.27 AST 38.9 H ALT 33.1 Alkaline Phosphatase 62.9 Total Creatine Kinase 36.7 Troponin I < 0.012 NT-Pro-B Natriuret Pep Total Protein 7.39 Albumin 4.42 Globulin 2.97 Albumin/Globulin Ratio 1.48 Procalcitonin < 0.05 TSH 0.137 L Free T4 Serum , Qual Influ A Molecular Assay Influ B Molecular Assay 07/11/19 07/11/19 07/11/19 18:39 18:39 18:39 WBC RBC Hgb Hct MCV MCH MCHC RDW Coeff of [place] Plt Count Neutrophils % (Manual) Band Neutrophils % Lymphocytes % (Manual) Metamyelocytes % Myelocytes % Plt Morphology Comment Polychromasia Hypochromasia Anisocytosis PT INR APTT Puncture Site O2 Saturation ABG pH ABG pCO2 ABG pO2 ABG HCO3 ABG Total CO2 ABG Base Excess Iban Test FiO2 % Sodium Potassium Chloride Carbon Dioxide Anion Gap BUN Creatinine Estimated GFR (MDRD) BUN/Creatinine Ratio Glucose Lactic Acid 3.87 H Calcium Total Bilirubin AST ALT Alkaline Phosphatase Total Creatine Kinase Troponin I NT-Pro-B Natriuret Pep Total Protein Albumin Globulin Albumin/Globulin Ratio Procalcitonin TSH Free T4 1.06 Serum , Qual Negative Influ A Molecular Assay Influ B Molecular Assay 07/11/19 18:39 WBC RBC Hgb Hct MCV MCH MCHC RDW Coeff of [place] Plt Count Neutrophils % (Manual) Band Neutrophils % Lymphocytes % (Manual) Metamyelocytes % Myelocytes % Plt Morphology Comment Polychromasia Hypochromasia Anisocytosis PT INR APTT Puncture Site O2 Saturation ABG pH ABG pCO2 ABG pO2 ABG HCO3 ABG Total CO2 ABG Base Excess Iban Test FiO2 % Sodium Potassium Chloride Carbon Dioxide Anion Gap BUN Creatinine Estimated GFR (MDRD) BUN/Creatinine Ratio Glucose Lactic Acid Calcium Total Bilirubin AST ALT Alkaline Phosphatase Total Creatine Kinase Troponin I NT-Pro-B Natriuret Pep 57.000 Total Protein Albumin Globulin Albumin/Globulin Ratio Procalcitonin TSH Free T4 Serum , Qual Influ A Molecular Assay Influ B Molecular Assay Orders Category Date Time Status ADMIT PATIENT INPATIENT .TO [facility] (MONITORED BED) ADMISSION 07/11/19 21:05 Active ABG DRAW REQUEST Stat CARDIO 07/11/19 18:22 Completed EKG-(ED ONLY) Stat CARDIO 07/11/19 18:22 Completed OXYGEN Routine CARDIO 07/11/19 21:08 Completed ACTIVITY .Up ad Mera CARE 07/11/19 21:06 Active GIVE HS SNACK 2100 CARE 07/11/19 21:07 Active INTAKE & OUTPUT Q8HR CARE 07/11/19 21:06 Active NPO REMINDER: IMAGING ONCE CARE 07/11/19 18:48 Completed TELEMETRY MONITORING TELE CARE 07/11/19 21:05 Active VITAL SIGNS Q4HR CARE 07/11/19 21:06 Active ADA 1800 [address] MARIE. DIET DIETARY 07/11/19 Breakfast Completed HS SNACK DIETARY 07/11/19 Dinner Completed ED IV/MEDIPORT/POWERPORT .ONCE EMERGENCY 07/11/19 18:23 Active ABG Stat LAB 07/11/19 18:22 Completed BLOOD CULTURE Stat LAB 07/11/19 19:00 Results CBC W/ AUTO DIFF Stat LAB 07/11/19 18:39 Completed COMPREHENSIVE METABOLIC PANEL Stat LAB 07/11/19 18:39 Completed CREATINE KINASE Stat LAB 07/11/19 18:39 Completed FLU A/B MOLECULAR Stat LAB 07/11/19 18:30 Completed FREE T4 (FREE THYROXINE) Stat LAB 07/11/19 18:39 Completed LACTIC ACID Stat LAB 07/11/19 18:39 Completed MANUAL DIFFERENTIAL Stat LAB 07/11/19 18:39 Completed MOLECULAR GROUP A STREP Stat LAB 07/11/19 18:30 Completed NT-PROBNP Stat LAB 07/11/19 18:39 Completed PARTIAL THROMBOPLASTIN TIME Stat LAB 07/11/19 18:39 Completed PROCALCITONIN Stat LAB 07/11/19 18:39 Completed PT WITH INR Stat LAB 07/11/19 18:39 Completed SERUM Stat LAB 07/11/19 18:39 Completed THYROID STIMULATING HORMONE Stat LAB 07/11/19 18:39 Completed TROPONIN I Stat LAB 07/11/19 18:39 Completed 0.9 % Sodium Chloride [Saline Flush] MEDS 07/11/19 18:23 Discontinued 1 syr IVF PRN PRN Albuterol Sulfate 0.042% Neb [Albuterol 0.042% Neb] MEDS 07/12/19 00:00 Discontinued 1.25 mg NEB RTQ6H Ceftriaxone/D5w 1 gm Premix [Rocephin 1 gm/50 ml D5w] MEDS 07/12/19 09:00 Discontinued 1 gm in 50 ml IV DAILY Sodium Chloride 0.9% [Sodium Chloride] 1,000 ml MEDS 07/11/19 18:23 Discontinued IV 125 mls/hr CHEST, 1V AP ONLY Stat RADS 07/11/19 18:[address] CHEST PE PROTOCOL Stat RADS 07/11/19 18:48 Completed Medications Discontinued Medications Generic Name Dose Route Start Last Admin Trade Name Freq PRN Reason Stop Dose Admin Acetaminophen 650 mg 07/13/19 20:01 07/13/19 20:41 Tylenol PO 650 mg Q6H PRN Administration pain Albuterol Sulfate 1.25 mg 07/12/19 00:00 07/12/19 05:44 Albuterol 0.042% Neb NEB Not Given RTQ6H DILLON Amlodipine Besylate 5 mg 07/12/19 09:00 07/12/19 09:01 Norvasc PO 5 mg DAILY DILLON Administration Amlodipine Besylate 2.5 mg 07/13/19 09:00 07/15/19 09:07 Norvasc PO 2.5 mg DAILY DILLON Administration Azithromycin 500 mg 07/12/19 09:00 07/14/19 09:28 Zithromax PO 07/15/19 08:59 500 mg DAILY DILLON Administration Benzocaine/Menthol 2 lozenge 07/13/19 20:27 07/13/19 20:41 Cepacol Sore Throat Lozenge MUCOUSMEMB 2 lozenge PRN PRN Administration sore throat Carvedilol 12.5 mg 07/12/19 08:00 07/15/19 09:08 Coreg PO 12.5 mg BIDWM DILLON Administration Clonazepam 0.5 mg 07/11/19 23:30 07/15/19 09:08 Klonopin PO 0.5 mg TID DILLON Administration Duloxetine HCl 60 mg 07/14/19 10:30 07/15/19 09:09 Cymbalta PO 60 mg DAILY DILLON Administration Enoxaparin Sodium 40 mg 07/12/19 09:00 07/15/19 09:07 Lovenox SUBCUT 40 mg DAILY DILLON Administration Furosemide 40 mg 07/13/19 09:55 07/13/19 10:59 Lasix IVP 07/13/19 09:56 40 mg ONCE STA Administration Furosemide 40 mg 07/15/19 11:12 07/15/19 11:29 Lasix Tab PO 07/15/19 11:13 40 mg ONCE STA Administration Sodium Chloride 1,000 mls @ 125 mls/hr 07/11/19 18:23 07/11/19 19:37 Sodium Chloride IV 07/12/19 02:22 125 mls/hr .Q8H STA Administration CEFTRIAXONE/D5W 1 GM PREMIX 1 gm in 50 mls @ 75 mls/hr 07/12/19 09:00 07/14/19 09:25 Rocephin 1 Gm/50 Ml D5w IV 07/15/19 08:59 75 mls/hr DAILY DILLON Administration Vancomycin HCl 1 gm/ Sodium 250 mls @ 250 mls/hr 07/11/19 21:12 07/11/19 23:30 Chloride IV 07/11/19 22:11 250 mls/hr ONCE STA Administration Multivitamins/Minerals 10 ml/ 1,010 mls @ 100 mls/hr 07/12/19 06:00 07/13/19 00:02 Sodium Chloride IV 100 mls/hr .Q10H6M DILLON Administration Insulin Human Regular 0 unit 07/11/19 21:14 07/15/19 12:08 Humulin R SUBCUT 1 unit PRN PRN Administration Hyperglycemia Protocol Lamotrigine 175 mg 07/11/19 23:30 07/14/19 20:52 Lamictal PO 175 mg BEDTIME DILLON Administration Levothyroxine Sodium 100 mcg 07/12/19 06:30 07/15/19 06:18 Synthroid PO 100 mcg 0630 DILLON Administration Levothyroxine Sodium 25 mcg 07/12/19 06:30 07/15/19 06:19 Synthroid PO 25 mcg 0630 DILLON Administration Losartan Potassium 50 mg 07/12/19 09:00 07/15/19 09:08 Cozaar PO 50 mg BID DILLON Administration Olanzapine 10 mg 07/11/19 23:30 07/15/19 09:08 Zyprexa PO 10 mg DAILY DILLON Administration Pantoprazole Sodium 40 mg 07/13/19 07:30 07/15/19 06:19 Protonix PO 40 mg BIDAC DILLON Administration Propranolol HCl 10 mg 07/12/19 09:00 Inderal PO BID DILLON Quetiapine Fumarate 50 mg 07/12/19 09:00 Seroquel PO BID DILLON Silver Sulfadiazine 1 applic 07/14/19 15:00 Silvadene Cream TP BID DILLON Sodium Chloride 1 syr 07/11/19 18:23 Saline Flush IVF PRN PRN To flush IV Sodium Chloride 1 syr 07/13/19 13:00 07/15/19 06:19 Saline Flush IVF 1 syr Q8HR DILLON Administration Zolpidem Tartrate 10 mg 07/11/19 23:13 07/14/19 20:53 Ambien PO 10 mg BEDTIME PRN Administration Insomnia Vital Signs: Temp Pulse Resp BP Pulse Ox 07/11/19 19:02 119 H 26 H 118/75 07/11/19 17:44 99.1 F 128 H 32 H 162/89 H 94 L Discharge Plan Discharge Patient Disposition: ADMITTED INPATIENT Discharge Problem: Edema of lower extremity, Acute dyspnea Instructions: Dyspnea (ED) Additional Instructions: Advance activities as tolerated. Resume home medications. No new Prescriptions. Call Dr Calhoun office to make a follow up appointment. If Shortness of Breath returns please contact Dr Calhoun or return to Emergency Department. ED Provider: VIPUL MCCLELLAND Condition: Good Discharge Date/Time: 07/11/19 22:03
--- NOTE | 2019-07-11 19:52 | DI ---
EXAM: Chest 1 view. HISTORY: Short of breath. COMPARISON: 05/31/2019. FINDINGS: Cardiac silhouette appears upper normal considering portable technique. There is slightly prominent bronchovascular markings lung bases. No lobar consolidation pneumonia seen. There is no p leural effusion. There is minimal elevation right hemidiaphragm. Deformity of the mid shaft of the right clavicle consist with old fracture. Impression 1. Cardiac silhouette upper normal size. 2. No pulmonary edema, localized pneumonia or pleural fluid. Minimal prominence of the bronchovascu lar markings seen in the lung bases, correlate clinically regarding mild bronchitis.
--- NOTE | 2019-07-11 20:52 | CT ---
EXAM: CTA chest HISTORY: Shortness of breath COMPARISON: None. FINDINGS: Contiguous axial images obtained through the thorax following intravenous contrast utilizi ng 3-mm collimation. Sagittal and coronal reconstructions were imaged and reviewed. Source images w ere utilized to create rotating 3-D MIP images.. The thoracic inlet is unremarkable. There is no ev idence of hilar mediastinal lymphadenopathy. The heart is enlarged without pericardial effusion.. T here is no evidence of pulmonary embolus... Dependent atelectasis is seen in both posterior gutter r egions. Scattered ground-glass opacities noted which may be related to edema or infiltrate. There h as been prior cholecystectomy. The liver is enlarged with diffuse fatty infiltration.. Bone window reveals no evidence of lytic or blastic lesions. IMPRESSION: No evidence of pulmonary embolus. Cardiomegaly Bibasilar atelectasis with diffuse ground-glass opacity as described
[2019-07-11] MEDS ORDERED: VANCOMYCIN 1 GM in SODIUM CHLORIDE 250 ML IV STA (21:12)
[2019-07-11] MEDS: KLONOPIN PO SCH (23:29)
[2019-07-11] MEDS: LAMICTAL PO SCH (23:29)
[2019-07-11] MEDS: ZYPREXA PO SCH (23:30)
[2019-07-11] MEDS: AMBIEN PO PRN (23:30)
[2019-07-12 00:42] VITALS: BMI 39.4
[2019-07-12] MEDS: ALBUTEROL 0.042% NEB NEB SCH ×2 (03:15→05:44)
[2019-07-12] MEDS ORDERED: INFUVITE ADULT IV ONE ×3 (04:21→23:59)
[2019-07-12] MEDS: INFUVITE ADULT 10 ML in SODIUM CHLORIDE 1,000 ML IV SCH ×2 (04:30→14:56)
[2019-07-12] MEDS: SYNTHROID PO SCH ×2 (06:05→06:06)
[2019-07-12] MEDS ORDERED: NORVASC PO SCH (09:00)
[2019-07-12] MEDS ORDERED: ATIVAN PO SCH (09:00)
[2019-07-12] MEDS ORDERED: INDERAL PO SCH (09:00)
[2019-07-12] MEDS ORDERED: SEROQUEL PO SCH (09:00)
[2019-07-12] MEDS: ZYPREXA PO SCH (09:01)
[2019-07-12] MEDS: COREG PO SCH ×2 (09:01→16:51)
[2019-07-12] MEDS: ROCEPHIN 1 GM/50 ML D5W 1 GM/50 ML BAG IV SCH (09:01)
[2019-07-12] MEDS: KLONOPIN PO SCH ×3 (09:01→20:17)
[2019-07-12] MEDS: COZAAR PO SCH ×2 (09:01→20:17)
[2019-07-12] MEDS: LOVENOX SUBCUT SCH (09:03)
[2019-07-12] MEDS: ZITHROMAX PO SCH (09:03)
[2019-07-12] MEDS: HUMULIN R SUBCUT PRN (11:30)
[2019-07-12] MEDS: LAMICTAL PO SCH (20:16)
[2019-07-12] MEDS: AMBIEN PO PRN (20:28)
[2019-07-13] MEDS: INFUVITE ADULT 10 ML in SODIUM CHLORIDE 1,000 ML IV SCH (00:02)
[2019-07-13] MEDS: SYNTHROID PO SCH ×2 (06:11→06:12)
--- NOTE | 2019-07-13 08:57 | DI ---
EXAM: Chest two views HISTORY: Increased shortness of breath FINDINGS: Compared to 07/11/2019. Low lung volumes limits the exam. Heart size is within normal li mits. Mild infiltrates in the central and lower lung zones are suggested with also probable atelecta sis. These were not seen previously. No visible pleural fluid or pneumothorax. IMPRESSION: 1. Mild basilar densities could represent infiltrates from vascular congestion or less likely pneumo frida. Atelectasis is a probable contributor. Correlate clinically.
[2019-07-13] MEDS: NORVASC PO SCH (09:23)
[2019-07-13] MEDS: PROTONIX PO SCH ×2 (09:23→17:11)
[2019-07-13] MEDS: COZAAR PO SCH ×2 (09:24→20:40)
[2019-07-13] MEDS: ROCEPHIN 1 GM/50 ML D5W 1 GM/50 ML BAG IV SCH (09:24)
[2019-07-13] MEDS: ZITHROMAX PO SCH (09:24)
[2019-07-13] MEDS: LOVENOX SUBCUT SCH (09:24)
[2019-07-13] MEDS: ZYPREXA PO SCH (09:24)
[2019-07-13] MEDS: COREG PO SCH ×2 (09:24→17:11)
[2019-07-13] MEDS: KLONOPIN PO SCH ×3 (09:24→20:40)
[2019-07-13] MEDS ORDERED: LASIX IVP STA (09:55)
--- NOTE | 2019-07-13 10:18 | US ---
EXAM: ULTRASOUND LOWER EXTREMITY VENOUS DOPPLER EXAM HISTORY: Leg edema. FINDINGS: Bilateral lower extremity venous Doppler exam. Real time hartmann-scale, Doppler spectral meche lysis and color-flow Doppler imaging performed. The veins targeted for evaluation include the common femoral, greater saphenous, profundus, femoral, popliteal, peroneal, anterior tibial and posterior t ibial. The evaluated veins demonstrated normal spontaneous flow and compression without evidence o f thrombosis. IMPRESSION: No venous thrombosis identified within the areas evaluated.
[2019-07-13] MEDS ORDERED: TYLENOL PO PRN (20:01)
[2019-07-13] MEDS ORDERED: CEPACOL SORE THROAT LOZENGE MUCOUSMEMB PRN (20:27)
[2019-07-13] MEDS: LAMICTAL PO SCH (20:40)
[2019-07-13] MEDS: AMBIEN PO PRN (20:41)
[2019-07-14] MEDS: SYNTHROID PO SCH ×2 (05:39)
[2019-07-14] MEDS: PROTONIX PO SCH ×2 (05:39→17:13)
[2019-07-14] MEDS: ROCEPHIN 1 GM/50 ML D5W 1 GM/50 ML BAG IV SCH (09:25)
[2019-07-14] MEDS: NORVASC PO SCH (09:26)
[2019-07-14] MEDS: ZYPREXA PO SCH (09:27)
[2019-07-14] MEDS: COZAAR PO SCH ×2 (09:27→20:53)
[2019-07-14] MEDS: KLONOPIN PO SCH ×3 (09:27→20:53)
[2019-07-14] MEDS: COREG PO SCH ×2 (09:28→17:13)
[2019-07-14] MEDS: ZITHROMAX PO SCH (09:28)
[2019-07-14] MEDS: LOVENOX SUBCUT SCH (09:30)
--- NOTE | 2019-07-14 09:33 | PCM.CONS ---
CONSULTING PROVIDER: Dr. YARELIS TRUJILLO ATTENDING PROVIDER: [facility] DATE OF SERVICE: 07/14/19 SUBJECTIVE: This 49 year old /WHITE F was hospitalized 07/11/19 with pneumonia. The patient had fluid overload. She was given 40mg of Lasix and put out over 6 of li ters of urine. Condition has improved clinically. REVIEW OF SYSTEMS: CONSTITUTIONAL: No night sweats. No fatigue, malaise, lethargy. No fever or chills. HEENT: Eyes: No visual changes. No eye pain. No eye discharge. ENT: No runny nose. No epistaxis. No sinus pain. No odynophagia. No congestion. RESPIRATORY: Mild cough, no congestion. No hemoptysis. No shortness of breath. CARDIOVASCULAR: No angina symptoms. No CHF symptoms. No atypical chest pain for CAD. No palpitations. No orthopnea. GASTROINTESTINAL: No abdominal pain. No nausea or vomiting. No diarrhea or const ipation. No hematemesis. No hematochezia. GENITOURINARY: No urgency. No frequency. No dysuria. No hematuria. No obstructive symptoms. No discharge. No pain. No significant abnormal bleeding. MUSCULOSKELETAL: No musculoskeletal pain; no joint swelling. NEUROLOGICAL: Awake, alert, oriented to time, place and person. No headache. No neck pain. No syncope. No seizures. No dizziness. PSYCHIATRIC: Not anxious. No depression. No suicidal thoughts. No homicidal thoughts. SKIN: No rash. No lesions. No wounds. ENDOCRINE: No unexplained weight loss. No weight gain. HEMATOLOGIC/LYMPHATIC: No anemia. No purpura. No petechiae. No prolonged or excessive bleeding. No palpable lymph nodes. PHYSICAL EXAMINATION: GENERAL: The patient is awake, alert and oriented, lying in bed in no distress. VITAL SIGNS: Temperature 98.9 F, Pulse 93, Respiratory Rate 18, BP 109/68, Pulse Ox 93% HEENT: Head normocephalic, atraumatic. Eyes: Extraocular muscles are intact. Pupils are equal, round and reactive to light and accommodation. Ears: No lesions. Nose appeared normal. Throat: No exudate or erythema. NECK: Supple. No JVD, no carotid bruit. No lymphadenopathy or thyromegaly. LUNGS: Decreased breath sounds with better entry. Clear to auscultation. Percussion note normal. Chest symmetrical. HEART: S1, S2, no S3. No murmurs. No cyanosis or clubbing. No ascites. Pulse s: Dorsalis pedis and posterior tibial pulses +1 to +2 both sides. ABDOMEN: Soft. Non-tender. Bowel sounds active. No CVA tenderness. No mass felt. EXTREMITIES: No edema. Full range of motion of all extremities, equal. NEUROLOGIC: No focal deficit. Cranial nerves II through XII are grossly intact. No headache, no double vision or headache. SKIN: Warm and dry. Intact. Turgor-normal. LYMPHATIC: No palpable lymph nodes/no lymphedema. MUSCULOSKELETAL: Normal joints with no swelling. Muscle tone is normal. LAB REVIEW: 07/14/19 04:57 07/14/19 04:57 07/14/19 04:57: Sodium 141.1, Potassium 3.55, Chloride 104.9, Carbon Dioxide 28.5, Anion Gap 11.25, BUN 15.8, Creatinine 0.59 L, Estimated GFR (MDRD) 109.00, BUN/Creatinine Ratio 26.77, Glucose 92.9, Calcium 9.12, Total Bilirubin 0.46, AST 23.7, ALT 22.4, Alkaline Phosphatase 53.6, NT-Pro-B Natriuret Pep 389.000 H, Total Protein 6.53, Albumin 3.79, Globulin 2.74, Albumin/Globulin Ratio 1.38 07/14/19 04:57: WBC 11.44 H, RBC 3.20 L, Hgb 8.4 L, Hct 27.6 L, MCV 86.3, MCH 26.3 L, MCHC 30.4 L, RDW Coeff of [place] 15.7 H, Plt Count 253, Immature Gran % (Auto) 3.9, Neut % (Auto) 50.6, Lymph % (Auto) 30.4, Alcorn % (Auto) 10.4 H, Eos % (Auto) 3.5, Baso % (Auto) 1.2, Immature Gran # (Auto) 0.5, Neut # (Auto) 5.8, Lymph # (Auto) 3.5 H, [place]corn # (Auto) 1.2, Eos # (Auto) 0.4, Baso # (Auto) 0.1 07/14/19 04:57: Lactic Acid 0.85 D 07/13/19 07:30: Total Creatine Kinase 20.8 L, Troponin I < 0.012 ASSESSMENT: 1. Pneumonia community acquired, treated with antibiotics 2. Fluid overload with difficulty breathing, resolved 3. Anemia 4. Morbid obesity Please see below. RECOMMENDATIONS/PLAN: 1. Continue telemetry 2. Monitor oximetry 3. Chest x-ray today 4. ABG on room air. Plan and coordination of the patient's care discussed in the presence of [employer] Consultant and Nurse. CONDITION: Stable SCRIBED BY: Ana STARKS scribed while in presence of service performed by Dr. YARELIS TRUJILLO on 07/14/19 ([id number])
[2019-07-14] MEDS: CYMBALTA PO SCH (10:52)
--- NOTE | 2019-07-14 11:11 | ECHO2D ---
Date of Exam: 07/13/19 Ordering Physician: DR. JUVE CHÁVEZ Room #: 117 Reason for Echo: SOB, TACHYCARDIA M-Mode Normal Adult Results LV Dimensions Normal Adult Results AoV Opening excursions >1.6 >1.6 LVEDD-base- 3.5-5.8 5.3 Ao root dimensions 2.0-3.7 3.4 LVESD-base- 3.1-4.6 L. Atrium dimensions 1.9-3.8 3.8 Post. Wall thickness 0.8-1.1 1.2 IV septum (thickness) 0.7-1.2 1.4 Post. Wall excursion 0.72-1.3 NORMAL Septal motion NORMAL Systolic motion R. Ventricular cavity 1.5-2.0 NORMAL LVEF 60% 57% Paradoxical septal wall motion NORMAL 2-D : 2-D M Mode Echocardiogram was performed using apical four chamber and left parasternal long and short axis views. Mitral, tricuspid and aortic valves appear to be normal. Contractility of the left ventricle seems to be normal, so is the cavity size. Left atrial cavity size and aortic root appear to be normal. There is no pericardial effusion. There is no thrombus noted in the left ventricle or left atrial cavity. No mitral valve prolapse noted. M-MODE: MV: NORMAL AV: NORMAL TV: NORMAL PV: CHAMBER SIZE: NORMAL WALL MOTION: NORMAL PERICARDIUM: NORMAL INTERPRETATION: 1. LEFT VENTRICULAR HYPERTROPHY 2. NORMAL LEFT VENTRICLE CONTRACTILITY 3. NORMAL LEFT VENTRICLE AND LEFT ATRIAL SIZE MTDD
--- NOTE | 2019-07-14 11:32 | CONS ---
DATE OF CONSULTATION: 07/13/19 REASON FOR CONSULTATION: Chest pain onset this AM. (07/13/19). "Having trouble breathing." Blood pressure elevated 172/108. Oxygen saturation 93% with O2 ST 109. HISTORY OF PRESENT ILLNESS: ER with feet/leg swelling for 2 days. Pain in calves. 07/11 admitted with diagnosis of Pneumonia. Slight chest discomfort prior to ER. REVIEW OF SYSTEMS: CONSTITUTIONAL: No night sweats. No fatigue, malaise, lethargy. No fever or chills. HEENT: Eyes: No visual changes. No eye pain. No eye discharge. ENT: No sinus drainage. No epistaxis. No sinus pain. No sore throat. No odynophagia. No ear pain. No congestion. Face flushed, Feels "cold" RESPIRATORY: Occasional cough nonproductive, no congestion. No hemoptysis. No shortness of breath. CARDIOVASCULAR: No angina symptoms. CHF symptoms; respirations shallow, rapid and soreness to touch left breast area. No atypical chest pain for CAD. No palpitations. No orthopnea. GASTROINTESTINAL: No abdominal pain. No nausea or vomiting. No diarrhea or constipation. No hematemesis. No hematochezia. GENITOURINARY: No urgency. No frequency. No dysuria. No hematuria. No obstructive symptoms. No discharge. No pain. No significant abnormal bleeding. MUSCULOSKELETAL: No musculoskeletal pain. No joint swelling. NEUROLOGICAL: History of headache. No neck pain. No syncope. No seizures. Some dizziness. PSYCHIATRIC: Anxious. No depression. No suicidal thoughts. No homicidal thoughts. SKIN: No rash. No lesions. No wounds. Warm/dry. Cheeks flushed. ENDOCRINE: No unexplained weight loss. No weight gain. HEMATOLOGIC/LYMPHATIC: No anemia. No purpura. No petechiae. No prolonged or excessive bleeding. No palpable lymph nodes. MEDICATIONS: Zyprexa Synthroid Amlodipine Losartan Lamictal Coreg Ambien Protonix ALLERGIES: Cipro PAST MEDICAL HISTORY: Anxiety/Depression Bipolar disorder Chronic arthritis Increased cholesterol Hypertension Hypothyroidism Insomnia Knee pain Seasonal allergies Esophageal Spasm 05/2019 PAST SURGICAL HISTORY: Appendectomy Arthroscopy left knee 2014 and right knee 2017 Cholecystectomy SOCIAL/PERSONAL/FAMILY HISTORY: The patient is single. No smoking. No alcohol use for a long time. Mother: Hypertension and cancer breast. Father: Hypertension and NE PHYSICAL EXAMINATION: GENERAL: The patient is alert and oriented times 3 VITAL SIGNS: Pulse 109, blood pressure 172/108, temperature 98.9, Oxygen saturation 93% on 2 liters, weight 251, BMI 39.4. HEENT: Head normocephalic, atraumatic. Eyes: Extraocular muscles are intact. Pupils are equal, round and reactive to light and accommodation. Ears: No lesions. Nose appeared normal. Throat: No exudate or erythema. NECK: Supple. No JVD, no carotid bruit. No lymphadenopathy or thyromegaly. LUNGS: Decreased breath sounds with mild wheezing with creps Clear to auscultation. Percussion note normal. Chest symmetrical. HEART: S1, S2, no S3. No murmurs. Telemetry sinus tachycardia. No cyanosis or clubbing. No ascites. Pulses: Dorsalis pedis and posterior tibial pulses +2 bilaterally. ABDOMEN: Soft. Nontender. Bowel sounds active. No CVA tenderness. No mass felt. EXTREMITIES: +1 edema. Full range of motion of all extremities, equal. NEUROLOGIC: No focal deficit. Cranial nerves II through XII are grossly intact. No headache, no double vision or headache. SKIN: Not dry. Intact. Turgor - normal. LYMPHATIC: No palpable lymph nodes/no lymphedema. MUSCULOSKELETAL: Normal joints with no swelling. Muscle tone is normal. LABS: Sodium 141.1, potassium 3.95, chloride 111.1, Bicarb 25.3, BUN 17.1, Creatinine 0.57 and glucose 105. WBC 15.88, hgb 7.7. hct 26.2, lt count 302. repeated at 8.3 and 27.8. CPK 20.8, Troponin <0.012 today 25.5 and <0.012. CPK 36.7, troponin <0.012, PRO BNP 57.000,TSH 0.[address] chest no PE, cardiomegaly, bibasilar atelectasis with diffuse ground glass opacity. 07/13 chest x-ray mild bibasilar densities could represent infiltrates from vascular congestion or less likely pneumonia. ASSESSMENT: 1. Respiratory distress, improved. Given 20mg IV Lasix this AM/Already 3500cc output. 2. Pneumonia 3. Morbid obesity 4. Hypertension RECOMMENDATIONS: 1. Echocardiogram: LVH, normal LV contractility, Normal LV/LA size and normal valves 2. Condition discussed with attending. 3. No IV fluids 4. Hgb/Hct 8.3/25- hemodilution Agreed with present management of pneumonia. Thanks for referal will follow. LUISITO
[2019-07-14] MEDS ORDERED: SILVADENE CREAM TP SCH ×2 (15:00→21:00)
--- NOTE | 2019-07-14 15:27 | DI ---
EXAM: CHEST FRONTAL AND LATERAL VIEWS HISTORY: Shortness of breath. COMPARISON: 07/13/2019 FINDINGS: Heart size appears to approach upper limit normal, stable. No acute infiltrates are seen. No vascular congestion. There is no consolidation, visible pleural fluid or pneumothorax. Bones r eveal no acute fracture. IMPRESSION: Mildly prominent heart size. No acute cardiopulmonary process.
[2019-07-14] MEDS: LAMICTAL PO SCH (20:52)
[2019-07-14] MEDS: AMBIEN PO PRN (20:53)
[2019-07-15] MEDS: SYNTHROID PO SCH ×2 (06:18→06:19)
[2019-07-15] MEDS: PROTONIX PO SCH (06:19)
[2019-07-15] MEDS: LOVENOX SUBCUT SCH (09:07)
[2019-07-15] MEDS: NORVASC PO SCH (09:07)
[2019-07-15] MEDS: ZYPREXA PO SCH (09:08)
[2019-07-15] MEDS: COREG PO SCH (09:08)
[2019-07-15] MEDS: COZAAR PO SCH (09:08)
[2019-07-15] MEDS: KLONOPIN PO SCH (09:08)
[2019-07-15] MEDS: CYMBALTA PO SCH (09:09)
[2019-07-15 09:57] VITALS: BP 124/83; TEMP 99.6
[2019-07-15] MEDS ORDERED: LASIX TAB PO STA (11:12)
[2019-07-15] MEDS: HUMULIN R SUBCUT PRN (12:08)
--- NOTE | 2019-07-17 08:42 | HP ---
DATE OF SERVICE: 07/11/19 CHIEF COMPLAINT: Bilateral lower extremity edema, right knee pain and shortness of breath and exertional dyspnea. HISTORY OF PRESENT ILLNESS: 49 year old female who was recently discharged from [facility] the day before. At the time of discharge she was complaining of swelling in both legs and mostly on the foot. She was unable to put her shoes. She also mentioned pain on the right knee. She has exertional dyspnea and presented to the emergency room. Lungs were reported as clear. Atrial blood gasses showed moderate hypoxemia pO2 73. Chest x-ray 07/11/19 cardiac shadow upper normal. No pulmonary edema, localized pneumonia or pleural effusion. Minimal prominence of the bronchovascular markings. CTA chest no pulmonary embolus, bibasilar atelectasis with defused ground glass opacity. Diffused fatty infiltration of the liver that is enlarged. Bone windows are normal. Dr. Price felt that the patient needed to be in the hospital with diagnosis of possible pneumonitis because of low grade temperature as well as shortness of breath and edema. Temperature 99.1, blood pressure 162/89, pulse 128, respiratory 32. Oxygen saturation 94% with 2 liters of oxygen. She was weighed in the emergency room at 263 pounds. BMI 39.9. PAST MEDICAL HISTORY/PAST SURGICAL HISTORY: The patient was admitted to [facility] for psychiatric problem, bipolar and was just discharged yesterday. This patient was admitted for about three weeks. She was also confined at [facility] in [facility] because of Jud[place] toxicity and did undergo renal dialysis as well intubation and pulmonary resuscitation. She was discharged after several days. She was also admitted at [facility] [place] because of not feeling well and had depression, hypothyroidism with replacement therapy. Laparoscopic surgery to the knee.. 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 She does not smoke any cigarettes and uses alcoholic beverages occasionally. The patient's last admission was because of fatigue and severe hypokalemia. MEDICATIONS: DISCHARGE MEDICATIONS FROM [facility]: Losartan 50mg twice a day Clonazepam 0.5mg tablet three times a day Olanzapine 10mg orally two tablets at bedtime Cymbalta 60mg daily Zolpidem 10mg at bedtime Lamictal 100mg tablet orally take 150mg by mouth at bedtime Lamictal CD 25mg orally chewable take at bedtime Folic acid 1mg tablet daily Amlodipine 5mg daily Levothyroxine 125mcg daily Carvedilol 12.5mg twice a day MEDICATIONS DISCONTINUE: Ramelteon 8mg tablet daily at bedtime Lorazepam 0.5mg tablet daily as needed Losartan 50mg tablet twice a day Seroquel 50mg tablet daily Inderal 10mg twice a day Losartan 50mg was discontinued but indeed it is continued. They wrote 25mg tablets to be taken two tablets twice a day which is 50mg twice a day ALLERGIES: Ciprofloxacin REVIEW OF SYSTEMS: CONSTITUTIONAL: The patient had low grade fever. Seemed to be chilly but no chills. She had gained some weight since her last admission. 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 No seizure disorder. No syncopal episodes. VISUAL: Negative. RESPIRATORY: Negative. No history of hemoptysis. GI: No abdominal pain. No diarrhea. No constipation. No blood in the stool : Negative MUSCULOSKELETAL: The patient does have pain in both knees, more on the right side. She does have edema on both ankles and legs as well as feet. ENDOCRINE: The patient has elevated BMI. No polyuria or polydipsia. HEMATOLOGY: No bleeding or history of spontaneous bleeding. INTEGUMENT: No bruises. No rash or pruritus. PSYCHIATRIC: The patient had history of bipolar disorder. PHYSICAL EXAMINATION: GENERAL: We have a 49 year old female admitted to the hospital with a diagnosis of pneumonitis with low grade temperature and shortness of breath. She does have moderate hypoxemia. She also had moderate severe anemia probably iron deficient. VITAL SIGNS: Temperature 99.2, pulse 111, respiratory 24, oxygen saturation 94% on 2 liters of oxygen. 5'7" 251 pounds and 12.2 ounces. BMI 39.4. HEAD: Unremarkable. Scalp no active dermatitis FACE: Symmetrical and equal with no facial weakness. No redness and no remarkable tenderness to palpation under pressure in the frontal and maxillary sinus areas. EYES: Pupil are equal and reactive to light about 3mm in size. Conjunctivae pale. Sclerae not icteric. MOUTH: Unremarkable THROAT: No inflammations. No exudates. NECK: No adenopathies. No masses. No bruit. CHEST: Symmetrical and equal. LUNGS: Breath sounds are somewhat diminished with few rales at the bases. No wheezing. HEART: Audible and regular with good tones. Slightly tachycardic and no murmurs. ABDOMEN: Protuberant, soft with no remarkable tenderness. No guarding. Bowel sounds are active. LOWER EXTREMITIES: Symmetrical and equal with beth edema on both ankles and feet. Also some edema on both legs. UPPER EXTREMITIES: Symmetrical and equal. Pulses are difficult to palpate because of the edema ASSESSMENT: 1. Exertional dyspnea. 2. Pneumonitis 3. Cardiomegaly 4. Heart failure, mild Elevated PRO BNP 5. History of bipolar disorder on medication 6. History of hypokalemia, severe 7. Hypertension 8. Obesity TIME SPENT: GREATER THAN 65 MINUTES MTDD
--- NOTE | 2019-07-17 09:28 | DS ---
DATE OF SERVICE: 07/15/19 HISTORY OF PRESENT ILLNESS: 49 year old female admitted to the hospital because of bilateral leg edema as well as ankle and feet. The patient is no longer able to put on shoes. She also had experienced low grade temperature and chilly sensation without chills. Findings compatible with pneumonia in the emergency room. The doctor felt that she needed admission because of the fever and pneumonic processes and some rales at the bases with shortness of breath. She also had moderate hypoxemia. The patient was continued on her medications from her discharged papers from [place]. She also was given Zithromax 500mg daily orally and Rocephin 1 gram intervenously daily. The patient still was running a low grade temperature intermittently 99.4 to 99.6. Her vital signs, blood pressure was stable and her pulse was below 90 and at times close to 90. Respiratory rate was between 16 to 20. Her oxygen saturation was between 95-98 on the day of discharge. The patient was 245 pounds and 9.5 ounces on the day of discharge. The patient developed more dyspnea on 07/13/19 in the afternoon. Lasix was given and the patient had rales on both lung salguero. The patient had a urine output about 6 liters. The patient did improve clinically. The chest x-ray done on the day of increase dyspnea showed what appeared pulmonary edema. The patient also was given Lasix on 07/14/19 40mg PO. She also was given Lasix on the day of discharge. The patient at the time of discharge was alert, ambulatory and feeling much better. The lungs are now clear to auscultation. The heart is audible with good tones and no longer tachycardic. The followup chest x-ray showed resolution of the previous findings. The patient was then discharged without any antibiotics and to take all the medication that was prescribed at the time of discharge from [place]. The intermittent low grade fever maybe also related to the medication. The patient now able to on her shoe after she was diuresed and the swelling of the legs, ankle and foot has regressed remarkably. FINAL DIAGNOSIS: 1. Early heart failure, Systolic, corrected 2. Bilateral bronchitis basal. 3. Markedly elevated BMI 4. Bipolar disorder, on multiple medications 5. Hypertension, controlled 6. Hypothyroidism, replaced 7. Moderate anemia, iron deficiency PROGNOSIS: Guarded. TIME SPENT: GREATER THAN 30 MINUTES MTDD
--- NOTE | 2019-07-22 11:15 | CONS ---
DATE OF SERVICE: 07/15/19 CONSULT FOLLOWUP SUBJECTIVE: 49-year-old white female seen on consultation with respiratory distress. The patient had fluid overload. The patient is breathing a lot better. REVIEW OF SYSTEMS: CONSTITUTIONAL: No night sweats. No fatigue, malaise, lethargy. No fever or chills. HEENT: Eyes: No visual changes. No eye pain. No eye discharge. ENT: No runny nose. No epistaxis. No sinus pain. No sore throat. No odynophagia. No ear pain. No congestion. RESPIRATORY: No cough, no congestion. No hemoptysis. CARDIOVASCULAR: No angina symptoms. No CHF symptoms. No atypical chest pain for CAD. No palpitations. No shortness of breath. GASTROINTESTINAL: No abdominal pain. No nausea or vomiting. No diarrhea or constipation. No hematemesis. No hematochezia. GENITOURINARY: No urgency. No frequency. No dysuria. No hematuria. No obstructive symptoms. No discharge. No pain. No significant abnormal bleeding. MUSCULOSKELETAL: No musculoskeletal pain. No joint swelling. No arthritis. NEUROLOGICAL: No headache. No neck pain. No syncope. No seizures. No dizziness. PSYCHIATRIC: Not anxious. No depression. No suicidal thoughts. No homicidal thoughts. SKIN: No rash. No lesions. No wounds. ENDOCRINE: No unexplained weight loss. No weight gain. HEMATOLOGIC/LYMPHATIC: No anemia. No purpura. No petechiae. No prolonged or excessive bleeding. No palpable lymph nodes. PHYSICAL EXAMINATION: VITAL SIGNS: Temperature 99.4, pulse 90, respiratory rate 20, BP 128/79, pulse ox 96%. HEENT: Head normocephalic, atraumatic. Eyes: Extraocular muscles are intact. Pupils are equal, round and reactive to light and accommodation. Ears: No lesions. Nose appeared normal. Throat: No exudate or erythema. NECK: Supple. No JVD, no carotid bruit. No lymphadenopathy or thyromegaly. LUNGS: Decreased breath sounds but clear to auscultation. Percussion note normal. Chest symmetrical. HEART: S1, S2, no S3. No murmurs. No cyanosis or clubbing. No ascites. Pulses: Dorsalis pedis and posterior tibial pulses +1 to +2 bilaterally. ABDOMEN: Soft. Nontender. Bowel sounds active. No CVA tenderness. No mass felt. EXTREMITIES: No edema. Full range of motion of all extremities, equal. NEUROLOGIC: No focal deficit. Cranial nerves II through XII are grossly intact. No headache, no double vision or headache. SKIN: Not dry. Intact. Turgor - normal. LYMPHATIC: No palpable lymph nodes/no lymphedema. MUSCULOSKELETAL: Normal joints with no swelling. Muscle tone is normal. Pro-BNP on 07/14/19 was 389 higher than on admission that was from fluid overload. The patient had responded to 20 mg of Lasix by putting out nearly 5 to 6L of fluid. The patient's generalized leg edema has all resolved. Appetite has improved. ASSESSMENT: 1. FLUID OVERLOAD WITH RESPIRATORY DISTRESS COUPLED WITH HISTORY OF PNEUMONIA. THE FLUID OVERLOAD PART HAS RESOLVED. PNEUMONIA BY CHEST X-RAY DONE YESTERDAY HAS RESOLVED. 2. THE PATIENT'S EXISTING PROBLEM IS MORBID OBESITY. 3. METABOLIC SYNDROME. 4. SEVERE ANEMIA. 5. HYPERTENSION. 6. HYPOTHYROIDISM. 7. DEPRESSION. RECOMMENDATIONS: The patient was explained about coronary artery disease. Also explained about LVH which she has by echocardiogram and future possibility of having congestive heart failure even without having coronary artery disease discussed with the patient. Counseling done about the weight loss. Thanks for the referral. The patient's cardiovascular status is stable. I will sign out of the case. LUISITO
--- NOTE | 2019-07-22 11:18 | CONS ---
BILLING CONSULTATION LEVEL 5, THE PATIENT WAS SEEN AT LEAST TWICE ON FOLLOWUP, INTERMEDIATE. MTDD
== END 2019-07-15 13:20 | disposition home or self-care (01) | DRG 947 ==
LOC: ED 17:43 → MEDSURG B 21:07
PROVIDERS: ADMIT General Practice; ATTEND General Practice

== ENCOUNTER 2023-03-01 22:26 | Observation (INO) ==
[2023-03-01 22:35] VITALS: BMI 46.5
--- NOTE | 2023-03-01 23:00 | ED.PDOC ---
General ED Provider: Dr. TANVI MOSES DO Chief Complaint: Abdominal Pain Stated Complaint: Bucky is a 52 yo F here for abdominal pain Bucky here earlier concenred that her R breast yeast infection was breast cancer Unfortuantely her spo2 is 90% now Michaeln alert and oreinted x4 GCS 15 Bucky denies drug or alcohol or tobacco use No falls or injuires Bucky amenalbe to work up She denies recent surgery she denies sick contacts allergies to cipro and PCN Time Seen by Provider: 03/01/23 22:40 Information Source: Patient Primary Care Provider: ANIYAH NATION MD Nursing and Triage Documentation Reviewed and Agree: Yes Does patient meet sepsis criteria?: No System Inflammatory Response Syndrome: Not Applicable Sepsis Protocol: For patient's 13 years and over: Temp is 96.8 and below OR 101 and greater Pulse >90 BPM Resp >20/minute Acutely Altered Mental Status Are patient's symptoms suggestive of a new infection, such as: -Pneumonia -Skin, Soft Tissue -Endocarditis -UTI -Bone, Joint Infection -Implantable Device -Acute Abdominal Infection -Wound Infection -Meningitis -Blood Stream Catheter Infection -Unknown Review of Systems Review Of Systems Constitutional: Denies Chills or Malaise Eyes: Denies Blindness or Vision change Ears, Nose, Mouth, Throat: Denies Ear pain or Nose discharge Respiratory: Denies Cough or Shortness of Breath Cardiac: Denies Chest pain, Irregular heart rate or Lightheadedness GI: Reports Abdominal pain; Denies Constipated or Diarrhea : Denies Burning, Dysuria or Discharge Musculoskeletal: Denies Back pain or Joint pain Skin: Denies Bruising or Dryness Neurological: Denies Anxiety or Depressed Endocrine: Denies Excessive sweating or Flushing Hematologic/Lymphatic: Denies Anemia All Other Systems: Reviewed and Negative [facility] Medical History DVT (deep venous thrombosis) I82.409 - Acute embolism and thrombosis of unspecified deep veins of unspecified lower extremity (ICD-10) Heart disease I51.9 - Heart disease, unspecified (ICD-10) High cholesterol E78.00 - Pure hypercholesterolemia, unspecified (ICD-10) Tear meniscus knee S83.209A - Unspecified tear of unspecified meniscus, current injury, unspecified knee, initial encounter (ICD-10) Family History Mother Breast cancer Hypertension FATHER Hypertension Myocardial infarct Social History Smoking and tobacco status: Never smoker Alcohol intake: current Alcohol intake frequency: holidays/special occasions only Substance use type: does not use Counseling given: No Candace/taoism: PENTECOSTAL Special candace needs: No Agree to transfusion: Yes Adopted: No Caregiver/support person: Yes Household members: none Housing: apartment Marital status: D Lives independently: Yes Number of children: 2 Number of grandchildren: 0 Highest education level completed: Bachelor's degree Financial difficulty paying for basics: very hard service: No Current occupational status: employed 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 Pets and animals: Yes Leisure activites: art History of recent travel: No Sexually active: No Do you think of yourself as: straight/heterosexual Current gender identity: female Seatbelt use: always Drives intoxicated or rides with 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 mounted: No Water heater temperature set < 120 degrees: Yes Working smoke detector in home: Yes Fire extinguisher in home: No Carbon monoxide detector in home: No Firearms in home: No Surgical History History of arthroscopy Z98.890 - Other specified postprocedural states (ICD-10) History of section Z98.891 - History of uterine scar from previous surgery (ICD-10) History of tubal ligation Z98.51 - Tubal ligation status (ICD-10) Status post appendectomy Z90.49 - Acquired absence of other specified parts of digestive tract (ICD- 10) Status post cholecystectomy Z90.49 - Acquired absence of other specified parts of digestive tract (ICD- 10) Female Reproductive History Menstrual Hx Hysterectomy: No Hx Tubal Ligation: No Physical Exam Physical Exam Appearance: Reports Well-appearing and Well-nourished Ill-appearing: Not Applicable Pain Distress: Not Applicable Eyes: Reports JOE and EOMI ENT: Reports Ears normal and Nose normal Neck: Supple Respiratory: Reports Airway patent and Breath sounds clear; Denies Wheezes Cardiovascular: Reports RRR and Pulses normal GI/: Reports Soft, Nontender and Other (negative oconnor sign no [place] ttp central abdominal obesity) Musculoskeletal: Reports Normal strength, ROM intact and No edema Skin: Reports Warm, Dry and Normal color Neurological: Reports Sensation intact and Motor intact Psychiatric: Reports Affect appropriate and Mood appropriate Critical Care Note Critical Care Note Total Critical Care Time (mins): 0 Course Course 03/01/23 22:59 03/01/23 22:59 Orders, Labs, Meds: Lab Review 03/01/23 03/01/23 03/02/23 22:59 23:05 01:50 WBC 17.61 H RBC 4.08 L Hgb 11.5 L Hct 37.7 MCV 92.4 MCH 28.2 MCHC 30.5 L RDW Coeff of [place] 15.1 H Plt Count 381 Immature Gran % (Auto) 2.0 Neut % (Auto) 75.8 H Lymph % (Auto) 14.4 [place] % (Auto) 5.9 Eos % (Auto) 1.4 Baso % (Auto) 0.5 Neut # (Auto) 13.4 H Lymph # (Auto) 2.5 [place] # (Auto) 1.0 Eos # (Auto) 0.3 Baso # (Auto) 0.1 Immature Gran # (Auto) 0.4 Puncture Site Hand Base Excess -10.0 L O2 Saturation 83.5 L ABG pH 7.26 L* ABG pCO2 38.0 ABG pO2 56.0 L* ABG HCO3 17.1 L ABG Total CO2 18.3 L Iban Test Pos Hemoglobin 1.1 Oxyhemoglobin 87.2 L Carboxyhemoglobin 2.7 H Total Hemoglobin 11.4 L O2 Delivery Device Cannula Oxygen Liter Flow 2.00 Sodium 134.1 L Potassium 4.07 Chloride 105.1 Carbon Dioxide 20.1 L Anion Gap 12.97 BUN 18.9 H Creatinine 1.13 Estimated GFR (MDRD) 51.00 BUN/Creatinine Ratio 16.72 Glucose 153.6 H Lactic Acid 1.77 Calcium 9.88 Total Bilirubin 0.49 AST 35.1 ALT 29.2 Alkaline Phosphatase 82.0 Troponin I < 0.012 Total Protein 8.76 H Albumin 4.66 Globulin 4.10 Albumin/Globulin Ratio 1.13 Urine Opiates Screen Negative Ur Oxycodone Screen Negative Urine Methadone Screen Negative Ur Propoxyphene Screen Negative Ur Barbiturates Screen Negative U Tricyclic Antidepress Negative Ur Phencyclidine Scrn Negative Ur Amphetamine Screen Positive H U Methamphetamines Scrn Negative U Benzodiazepines Scrn Positive H Urine Cocaine Screen Negative U Cannabinoids Screen Negative Plasma/Serum Alcohol < 10.0 Influ A Molecular Assay Influ B Molecular Assay RSV Antigen SARS CoV-2 RNA Rapid CHIQUI 03/02/23 06:08 WBC RBC Hgb Hct MCV MCH MCHC RDW Coeff of [place] Plt Count Immature Gran % (Auto) Neut % (Auto) Lymph % (Auto) [place] % (Auto) Eos % (Auto) Baso % (Auto) Neut # (Auto) Lymph # (Auto) [place] # (Auto) Eos # (Auto) Baso # (Auto) Immature Gran # (Auto) Puncture Site Base Excess O2 Saturation ABG pH ABG pCO2 ABG pO2 ABG HCO3 ABG Total CO2 Iban Test Hemoglobin Oxyhemoglobin Carboxyhemoglobin Total Hemoglobin O2 Delivery Device Oxygen Liter Flow Sodium Potassium Chloride Carbon Dioxide Anion Gap BUN Creatinine Estimated GFR (MDRD) BUN/Creatinine Ratio Glucose Lactic Acid Calcium Total Bilirubin AST ALT Alkaline Phosphatase Troponin I Total Protein Albumin Globulin Albumin/Globulin Ratio Urine Opiates Screen Ur Oxycodone Screen Urine Methadone Screen Ur Propoxyphene Screen Ur Barbiturates Screen U Tricyclic Antidepress Ur Phencyclidine Scrn Ur Amphetamine Screen U Methamphetamines Scrn U Benzodiazepines Scrn Urine Cocaine Screen U Cannabinoids Screen Plasma/Serum Alcohol Influ A Molecular Assay Negative by naat Influ B Molecular Assay Negative by naat RSV Antigen Negative by naat SARS CoV-2 RNA Rapid [place] Negative Orders Category Date Time Status OBSERVATION [[facility] PAT[facility]BS[facility]] [facility] 03/02/23 06:55 Ordered (MONITORED BED) ABG DRAW REQUEST Stat CARDIO 03/02/23 06:55 Ordered EKG-(ED ONLY) Stat CARDIO 03/01/23 22:46 Completed VBG DRAW REQUEST Stat CARDIO 03/02/23 05:25 Completed VBG DRAW REQUEST Stat CARDIO 03/02/23 05:25 Completed NPO REMINDER: IMAGING ONCE CARE 03/01/23 22:46 Completed TELEMETRY MONITORING TELE CARE 03/02/23 06:55 Ordered ABG COOX Stat LAB 03/02/23 01:50 Completed ABG COOX Stat LAB 03/02/23 06:55 Ordered BLOOD ALCOHOL Stat LAB 03/01/23 22:59 Completed CBC W/ AUTO DIFF Stat LAB 03/01/23 22:59 Completed COMPREHENSIVE METABOLIC PANEL Stat LAB 03/01/23 22:59 Completed COVID [SARS COV-2 RNA RAPID CHIQUI] Stat LAB 03/02/23 06:08 Completed DRUG SCREEN (RAPID FOR ED) [DRUG SCREEN, URINE, RAPID] LAB 03/01/23 23:05 Completed Stat FLU A & B MOLECULAR [FLU A/B MOLECULAR] Stat LAB 03/02/23 06:08 Completed LACTIC ACID Stat LAB 03/01/23 22:59 Completed RSV Stat LAB 03/02/23 06:08 Completed TROPONIN I Stat LAB 03/01/23 22:59 Completed Ipratropium/Albuterol Neb [Duoneb] Meds 03/02/23 01:42 Discontinued 3 ml NEB ONCE ONE CT ABDOMEN/PELVIS W CONTRAST Stat RADS 03/01/23 22:[address] CHEST PE PROTOCOL Stat RADS 03/01/23 22:46 Completed Medications Discontinued Medications Generic Name Dose Route Start Last Admin Trade Name Freq PRN Reason Stop Dose Admin Albuterol/Ipratropium 3 ml 03/02/23 01:42 03/02/23 01:58 Ipratropium/Albuterol Vial.Neb NEB 03/02/23 01:43 3 ml ONCE ONE Administration Vital Signs: Temp Pulse Resp BP Pulse Ox 03/01/23 22:31 97.8 F 96 17 144/84 H 94 L MDM: Patient is a 52 yo F here for abdominal pain Patient arrives afebrile with stable blood pressure She is hypoxic 90%-no hx of asthma/COPD Exam concerning for hypoxia 3+ labs and 3 images reviewed by me Patient seen previously today for breast candidiasis Consults to hospitalist team I cannot find source of hypoxia Patient alert and oriented x4 GCS 15 RN concerned she may have taken too many benzodiazepines Patient more alert as stay goes on Her oxygen road test is 86-95% and fluctuating We changed oxygen probes many times and still hypoxic CT PE study benign She did not tolerate ABG I cannot find cause of hypoxia I recommend admission and continued monitoring patient agrees, will call hospitalist at [phone], Hospitalist accepts recommends ABG with todays different RT on room air. WDX: Gastroenteritis, idiopathic hypoxia, fatty liver, benzodiazepine use acute condition high complexity DDX: I considered sepsis, Covid 19, PE, pneumothorax but these were not found SDOH: Patient has PCP and family support Patient has requested to leave multiple times I have changed her mind and reminded her hypoxia is dangerous, it is raining and she should not be driving in this state She is amenable to obs/admission She is 95% on 2L NC at rest I considered pickwickian + sleep apnea and underlying mild COPD, but I feel benzodiazepine overuse is more likely cause of hypoxia Discharge Plan Discharge Patient Disposition: PLACED OBSERVATION Discharge Problem: Discomfort, Leukocytosis, Hypoxia, Adv eff benzodiaz tranq, Fatty liver, Gastroenteritis Did you review [place] EQUIPMENT MANAGER for ALL controlled substances?: Not Applicable ED Provider: TANVI MOSES Condition: Good Physician Progress Note: []
[2023-03-01 23:05] LABS: BASOPHILS # (AUTO) 0.1 K/uL (0-0.2); BASOPHILS % (AUTO) 0.5 % (0.0-3.0); EOSINOPHILS # (AUTO) 0.3 K/ul (0.0-0.7); EOSINOPHILS % (AUTO) 1.4 % (0.0-7.0); HEMATOCRIT 37.7 % (37.0-47.0); HEMOGLOBIN 11.5 g/dl (12.0-16.0); IMMATURE GRANULOCYTE # (AUTO) 0.4 (0.0-1.0); LYMPHOCYTES # (AUTO) 2.5 K/uL (0.60-3.4); LYMPHOCYTES % (AUTO) 14.4 (10.0-50.0); MEAN CORPUSCULAR HEMOGLOBIN 28.2 pg (27.0-31.0); MEAN CORPUSCULAR HGB CONC 30.5 (31.8-35.4); MEAN CORPUSCULAR VOLUME 92.4 fl (81.0-99.0); MONOCYTES % (AUTO) 5.9 (0-10); NEUTROPHILS # (AUTO) 13.4 K/ul (2.0-6.9); NEUTROPHILS % (AUTO) 75.8 % (42.2-75.2); PLATELET COUNT 381 10^3/uL (140-440); RDW COEFFICIENT OF VARIATION 15.1 % (11.6-14.8); RED BLOOD COUNT 4.08 10^6/ul (4.20-5.40); WHITE BLOOD COUNT 17.61 K/ul (4.6-10.2)
[2023-03-01 23:16] LABS: ALANINE AMINOTRANSFERASE 29.2 U/L (0-35); ALBUMIN 4.66 g/dL (3.5-5.0); ASPARTATE AMINO TRANSFERASE 35.1 U/L (14-36); BILIRUBIN,TOTAL 0.49 mg/dL (0.2-1.3); BLOOD UREA NITROGEN 18.9 mg/dL (7-17); CALCIUM 9.88 mg/dL (8.4-10.2); CARBON DIOXIDE 20.1 mmol/L (22-30.0); CHLORIDE 105.1 mmol/L (98-107); CREATININE 1.13 mg/dL (0.60-1.30); GLUCOSE 153.6 mg/dL (74-106); POTASSIUM 4.07 mmol/L (3.5-5.1); SODIUM 134.1 mmol/L (134.5-145); TOTAL PROTEIN 8.76 g/dL (6.3-8.2)
[2023-03-01 23:22] LABS: AMPHETAMINE SCREEN,URINE POSITIVE (NEGATIVE); BARBITURATE SCREEN,URINE NEGATIVE (NEGATIVE); BENZODIAZEPINES SCREEN,URINE POSITIVE (NEGATIVE); CANNABINOID SCREEN,URINE NEGATIVE (NEGATIVE); COCAIN SCREEN,URINE NEGATIVE (NEGATIVE); METHADONE URINE SCREEN NEGATIVE (NEGATIVE); METHAMPHETAMINES SCREEN,URINE NEGATIVE (NEGATIVE); OPIATE SCREEN,URINE NEGATIVE (NEGATIVE); OXYCODONE URINE SCREEN NEGATIVE (NEGATIVE); PHENCYCLIDINE SCREEN,URINE NEGATIVE (NEGATIVE); PROPOXYPHENE URINE SCREEN NEGATIVE (NEGATIVE); TRICYCLIC ANTIDEPRESSANTS URIN NEGATIVE (NEGATIVE)
[2023-03-01 23:30] LABS: BLOOD ALCOHOL < 10.0 mg/dL (0.0-50.0); TROPONIN I < 0.012 ng/ml (0.0000-0.120)
--- NOTE | 2023-03-02 01:25 | CT ---
EXAM: CTA OF THE CHEST. History: Hypoxia, shortness of breath Comparison: CT abdomen pelvis 03/02/2023, CTA of the chest 09/02/2022 Technique: Multiplanar CT images through the thorax were obtained following administration of IV con trast. MIP images and 3-D reconstructions were also acquired. Findings: Heart size is borderline enlarged. No pericardial effusion. Great vessels are unremarkab le. No pulmonary arterial filling defects. No enlarged intrathoracic lymph nodes. No consolidation within the lungs. No pleural fluid and no pneumothorax. No suspicious lung masses or lung nodules. For details in the upper abdomen, please see dedicated CT abdomen pelvis done on the same day. Claudette cystectomy clips. The liver is fatty. No acute osseous abnormalities. Impression: No pulmonary embolism and no acute intrathoracic process All CT scans are performed using dose optimization techniques as appropriate to the performed exam an d include at least one of the following: Automated exposure control, adjustment of the mA and/or kV according t o size, and the use of iterative reconstruction technique.
--- NOTE | 2023-03-02 01:32 | CT ---
EXAM: CT OF THE ABDOMEN PELVIS WITH CONTRAST History: Abdominal pain. Comparison: CT abdomen pelvis 02/26/2023 Technique: Multiplanar CT images through the abdomen pelvis were obtained following administration o f IV contrast FINDINGS: Lung bases are clear. No acute osseous abnormalities. Status post cholecystectomy. The liver is fatty. No liver or splenic lesions. The pancreas, adrena l glands and kidneys are unremarkable. No free air and no ascites. Uterus is not enlarged. Bladder is not well distended. Fluid filled mildly distended loops of both large and small bowel. Stomach is distended with fluid. No bowel obstruction. No lymphadenopathy. Impression: 1. Probable mild viral gastroenteritis. No bowel obstruction. 2. Hepatic steatosis All CT scans are performed using dose optimization techniques as appropriate to the performed exam an d include at least one of the following: Automated exposure control, adjustment of the mA and/or kV according t o size, and the use of iterative reconstruction technique.
[2023-03-02] MEDS ORDERED: DUONEB NEB ONE (01:42)
[2023-03-02 05:51] LABS: ABG O2 HGB 87.2 % (95-100); COHb 2.7 (0.5-1.5); HCO3 17.1 (21-28); MetHb 1.1 (0-1.5); TCO2 18.3 (19-24); sO2 83.5 % (94-98); tHb 11.4 g/dl (11.7-17.4)
[2023-03-02 06:05] LABS: ABG PH 7.26 (7.35-7.45)
[2023-03-02 06:39] LABS: MOLECULAR FLU A NEGATIVE BY NAAT (NEGATIVE); MOLECULAR FLU B NEGATIVE BY NAAT (NEGATIVE); RSV MOLECULAR NEGATIVE BY NAAT (NEGATIVE)
[2023-03-02 06:49] LABS: SARS COV-2 RNA RAPID NAAT NEGATIVE (NEGATIVE)
[2023-03-02 07:32] LABS: ABG O2 HGB 87.4 % (95-100); BEecf -10.2 (-2.0-3.0); COHb 2.2 (0.5-1.5); MetHb 0.9 (0-1.5); TCO2 19.4 (19-24); tHb 11.8 g/dl (11.7-17.4)
[2023-03-02 07:34] LABS: ABG PH 7.19 (7.35-7.45)
[2023-03-02] MEDS ORDERED: ROMAZICON IVP STA (08:43)
[2023-03-02] MEDS ORDERED: ZOFRAN 4 MG/2 ML IM STA (08:50)
[2023-03-02] MEDS ORDERED: ZOFRAN 4 MG/2 ML ONE (08:55)
--- NOTE | 2023-03-02 10:36 | PCM ---
Date of Service Date Seen by Provider: 03/02/23 Time Seen by Provider: 08:30 Admit Day/Time Admission Date: 03/02/23 Admission Time: 06:55 Reason for Admission Chief Complaint: dizziness, nausea Hospital Provider Hospital Provider: ARNOLDO PORTER PA-C, [facility] [place] Phys[place] Primary Care Physician: ANIYAH NATION MD History of Present Illness History of Present Illness: Patient is a 52-year-old female with past medical history of hypertension, hypothyroidism, anxiety, depression who is well-known to our emergency department who presented for shortness of air and abdominal pain last night. She was noted to be with a O2 saturation of about 90%. She would drop down to 87% with any ambulation. CTA of chest negative for any findings. CT abdomen pelvis negative. Chest x-ray negative. ABG did show a metabolic acidosis. Labs unremarkable other than leukocytosis. Patient admitted to [facility] for hypoxia. On my evaluation patient is able to answer questions appropriately but falling asleep multiple times throughout the conversation. I specifically asked her to please try to stay awake so that we can discuss her medical history which she was attempting to do but still would fall asleep. Her drug screen was positive for amphetamines and benzodiazepines. She does have prescriptions for these. I asked her when was last time she took benzo and she says she took her clonazepam yesterday. She denies overuse. However after reviewing [facility] she filled a prescription that was written in November by Dr. Martini on January 24 for #45 0.5 mg tablets. She then filled on February 13 #60 1 mg tablets from another provider in [place]. Her father brought in her medications when he came to visit and clonazepam is not in her bag. She was given 0.2 mg IV of flumazenil and had immediate positive response. She has since been able to hold conversation without falling asleep. She has been sitting to the side of the bed and requesting something to drink. Case Discussed With Case Discussed With: Patient's case was discussed with the ER Physicians, Dr. Guardado. [facility] Medical History DVT (deep venous thrombosis) I82.409 - Acute embolism and thrombosis of unspecified deep veins of unspecified lower extremity (ICD-10) Heart disease I51.9 - Heart disease, unspecified (ICD-10) High cholesterol E78.00 - Pure hypercholesterolemia, unspecified (ICD-10) Tear meniscus knee S83.209A - Unspecified tear of unspecified meniscus, current injury, unspecified knee, initial encounter (ICD-10) Surgical History History of arthroscopy Z98.890 - Other specified postprocedural states (ICD-10) History of section Z98.891 - History of uterine scar from previous surgery (ICD-10) History of tubal ligation Z98.51 - Tubal ligation status (ICD-10) Status post appendectomy Z90.49 - Acquired absence of other specified parts of digestive tract (ICD- 10) Status post cholecystectomy Z90.49 - Acquired absence of other specified parts of digestive tract (ICD- 10) Family History Mother Breast cancer Hypertension FATHER Hypertension Myocardial infarct Social History Smoking and tobacco status: Never smoker Alcohol intake: current Alcohol intake frequency: holidays/special occasions only Substance use type: does not use Counseling given: No Candace/hoahaoism: TAOISM Special candace needs: No Agree to transfusion: Yes Adopted: No Caregiver/support person: Yes Household members: none Housing: apartment Marital status: D Lives independently: Yes Number of children: 2 Number of grandchildren: 0 Highest education level completed: Bachelor's degree Financial difficulty paying for basics: very hard service: No Current occupational status: employed 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 Pets and animals: Yes Leisure activites: art History of recent travel: No Sexually active: No Do you think of yourself as: straight/heterosexual Current gender identity: female Seatbelt use: always Drives intoxicated or rides with intoxicated route driver salesperson: No Water heater temperature set < 120 degrees: Yes Working smoke detector in home: Yes Fire extinguisher in home: No Carbon monoxide detector in home: No Firearms in home: No Allergies Allergies Allergy/AdvReac Type Severity Reaction Status Date / Time ciprofloxacin [From Cipro] AdvReac Intermediate Hives Verified 03/01/23 22:35 Penicillins AdvReac Verified 03/01/23 22:35 Current Medications Home Medications levothyroxine 112 mcg tablet (Synthroid) 112 mcg PO DAILY 30 days #30 tabs 10/02/22 [Rx Confirmed 03/02/23 Last Taken 03/01/23] blood-glucose meter (Blood Glucose Monitoring kit) #1 ea 12/05/22 [Rx Confirmed 03/01/23 Last Taken Unknown] hydrochlorothiazide 25 mg tablet 25 mg PO DAILY 30 days #30 tabs 12/27/22 [Rx Confirmed 03/02/23 Last Taken 03/01/23] losartan 100 mg tablet See Rx Instructions .Route .COMPLEX #90 tabs 01/10/23 [Rx Confirmed 03/02/23 Last Taken 03/01/23] carvedilol 25 mg tablet 25 mg PO BID 30 days #60 tabs 02/01/23 [Rx Confirmed 03/02/23 Last Taken 03/01/23] fluconazole 200 mg tablet 200 mg PO DAILY #14 tabs 02/24/23 [Rx Confirmed 03/02/23 Last Taken Unknown] ketorolac 10 mg tablet 10 mg PO Q6H PRN pain #60 tabs 02/24/23 [Rx Confirmed 03/02/23 Last Taken 03/01/23] trazodone 100 mg tablet 100 mg PO BEDTIME PRN insomnia #14 tabs 02/24/23 [Rx Confirmed 03/02/23 Last Taken 03/01/23] gabapentin 100 mg capsule See Rx Instructions .Route .COMPLEX #90 caps 02/25/23 [Rx Confirmed 03/02/23 Last Taken 03/01/23] nystatin 100,000 unit/gram topical cream 1 applic topical TID 2 weeks #30 grams 03/01/23 [Rx Confirmed 03/02/23 Last Taken 03/01/23] ondansetron 4 mg disintegrating tablet 4 mg PO Q8H #21 tabs 03/01/23 [Rx Confirmed 03/02/23 Last Taken 03/01/23] clonazepam 1 mg tablet 1 mg PO BID PRN anxiety 03/02/23 [History Confirmed 03/02/23 Last Taken Unknown] fluoxetine 20 mg capsule (Prozac) 20 mg PO DAILY 03/02/23 [History Confirmed 03/02/23 Last Taken Unknown] Home Acetaminophen (Acetaminophen 325 Mg Tablet) 650 mg PO Q6H PRN PRN Reason: Pain Last Admin: 03/02/23 11:39 Dose: 650 mg Nystatin (Nystatin 15 Gm Cream) 1 applic TP TID DILLON Ondansetron HCl (Ondansetron Hcl/Pf 4 Mg/2 Ml Sdv) 4 mg IVP Q6H PRN PRN Reason: Nausea / Vomiting Discontinued Medications Albuterol/Ipratropium (Ipratropium/Albuterol Vial.Neb) 3 ml NEB ONCE ONE Stop: 03/02/23 01:43 Last Admin: 03/02/23 01:58 Dose: 3 ml Flumazenil (Flumazenil 0.1 Mg/1 Ml Mdv) 0.2 mg IVP ONCE STA Stop: 03/02/23 08:44 Last Admin: 03/02/23 08:50 Dose: 0.2 mg Ondansetron HCl (Ondansetron Hcl/Pf 4 Mg/2 Ml Sdv) 4 mg IM ONCE STA Stop: 03/02/23 08:51 Last Admin: 03/02/23 10:51 Dose: Not Given Review of Systems Constitutional: Reports Fatigue; Denies Fever or Weakness Head: Reports Normocephalic and Atraumatic Eyes: Denies Vision Changes Throat: Denies Sore Throat or Difficulty Swallowing Cardiovascular: Denies Chest pain or Chest Pressure Respiratory: Reports Shortness of air Gastrointestinal: Reports Abdominal pain; Denies Nausea or Vomiting Genitourinary: Denies Dysuria or Frequency Neurological: Denies Headache, Dizziness, Syncope or Seizure Psychiatric: Reports Depression and Anxiety; Denies Suicidal Physical examination Most Recent Vital Signs: Most Recent Vital Signs Temperature 96.8 F L 03/02/23 10:00 Temperature Source Temporal Artery Scan 03/02/23 10:00 Temperature Source Infrared 03/01/23 22:31 Pulse Rate 91 03/02/23 10:00 Respiratory Rate 18 03/02/23 10:00 Blood Pressure 115/72 03/02/23 10:00 Blood Pressure Mean 86 03/02/23 10:00 Blood Pressure Left Arm 109/70 03/02/23 08:15 Blood Pressure Location Left Radial Artery 03/02/23 10:00 Blood Pressure Position Sitting 03/02/23 10:00 O2 Sat by Pulse Oximetry 97 03/02/23 10:00 Oxygen Delivery Method Nasal Cannula 03/02/23 10:00 Oxygen Flow Rate 1.5 03/02/23 10:00 Height 5 ft 8 in 03/02/23 08:15 Weight 306 lb 03/02/23 08:15 Telemetry Type Remote Telemetry 03/02/23 09:13 Telemetry Monitoring Started 03/02/23 09:13 Telemetry Heart Rate 89 03/02/23 09:13 Telemetry SPO2 98 03/02/23 09:13 EKG VA Interval 0.16 03/02/23 09:13 EKG QRS Interval 0.08 03/02/23 09:13 Telemetry Strip Reading SR 03/02/23 09:13 Appearance: Positive Well-appearing, Well-nourished, No Apparent Distress and Obese HEENT: Positive Normocephalic and Atraumatic Neck: Positive Supple and Midline Trachea Chest/Lungs: Positive Clear to Auscultation Bilaterally; Negative Rales, Rhonci or Wheezes Heart: Positive RRR GI/: Positive Soft and Nontender Extremities: Negative Edema Neurological: Positive Cranial Nerves Intact, Alert, Oriented and Muscle Strength 5/5 in Upper and Lower Extremities Bilaterally Psychiatric: Positive Oriented x4, Appropriate Mood and Appropriate Affect Additional Findings: Pt initially lethargic, falling asleeping mid conversation. But alert and oriented following flumazenil administration. Labs This Visit Labs This Visit: Labs This Visit 03/01/23 03/01/23 03/02/23 22:59 23:05 01:50 WBC 17.61 H RBC 4.08 L Hgb 11.5 L Hct 37.7 MCV 92.4 MCH 28.2 MCHC 30.5 L RDW Coeff of [place] 15.1 H Plt Count 381 Immature Gran % (Auto) 2.0 Neut % (Auto) 75.8 H Lymph % (Auto) 14.4 [place] % (Auto) 5.9 Eos % (Auto) 1.4 Baso % (Auto) 0.5 Neut # (Auto) 13.4 H Lymph # (Auto) 2.5 [place] # (Auto) 1.0 Eos # (Auto) 0.3 Baso # (Auto) 0.1 Immature Gran # (Auto) 0.4 Puncture Site Hand Base Excess -10.0 L O2 Saturation 83.5 L ABG pH 7.26 L* ABG pCO2 38.0 ABG pO2 56.0 L* ABG HCO3 17.1 L ABG Total CO2 18.3 L Iban Test Pos Hemoglobin 1.1 Oxyhemoglobin 87.2 L Carboxyhemoglobin 2.7 H Total Hemoglobin 11.4 L O2 Delivery Device Cannula Oxygen Liter Flow 2.00 FiO2 % Sodium 134.1 L Potassium 4.07 Chloride 105.1 Carbon Dioxide 20.1 L Anion Gap 12.97 BUN 18.9 H Creatinine 1.13 Estimated GFR (MDRD) 51.00 BUN/Creatinine Ratio 16.72 Glucose 153.6 H Lactic Acid 1.77 Calcium 9.88 Total Bilirubin 0.49 AST 35.1 ALT 29.2 Alkaline Phosphatase 82.0 Troponin I < 0.012 Total Protein 8.76 H Albumin 4.66 Globulin 4.10 Albumin/Globulin Ratio 1.13 Urine Opiates Screen Negative Ur Oxycodone Screen Negative Urine Methadone Screen Negative Ur Propoxyphene Screen Negative Ur Barbiturates Screen Negative U Tricyclic Antidepress Negative Ur Phencyclidine Scrn Negative Ur Amphetamine Screen Positive H U Methamphetamines Scrn Negative U Benzodiazepines Scrn Positive H Urine Cocaine Screen Negative U Cannabinoids Screen Negative Plasma/Serum Alcohol < 10.0 Influ A Molecular Assay Influ B Molecular Assay RSV Antigen SARS CoV-2 RNA Rapid CHIQUI 03/02/23 03/02/23 06:08 07:13 WBC RBC Hgb Hct MCV MCH MCHC RDW Coeff of [place] Plt Count Immature Gran % (Auto) Neut % (Auto) Lymph % (Auto) [place] % (Auto) Eos % (Auto) Baso % (Auto) Neut # (Auto) Lymph # (Auto) [place] # (Auto) Eos # (Auto) Baso # (Auto) Immature Gran # (Auto) Puncture Site Rrad Base Excess -10.2 L O2 Saturation 84.0 L ABG pH 7.19 L* ABG pCO2 47.0 H ABG pO2 61.0 L ABG HCO3 18.0 L ABG Total CO2 19.4 Iban Test + Hemoglobin 0.9 Oxyhemoglobin 87.4 L Carboxyhemoglobin 2.2 H Total Hemoglobin 11.8 O2 Delivery Device Ra Oxygen Liter Flow FiO2 % 21.0 Sodium Potassium Chloride Carbon Dioxide Anion Gap BUN Creatinine Estimated GFR (MDRD) BUN/Creatinine Ratio Glucose Lactic Acid Calcium Total Bilirubin AST ALT Alkaline Phosphatase Troponin I Total Protein Albumin Globulin Albumin/Globulin Ratio Urine Opiates Screen Ur Oxycodone Screen Urine Methadone Screen Ur Propoxyphene Screen Ur Barbiturates Screen U Tricyclic Antidepress Ur Phencyclidine Scrn Ur Amphetamine Screen U Methamphetamines Scrn U Benzodiazepines Scrn Urine Cocaine Screen U Cannabinoids Screen Plasma/Serum Alcohol Influ A Molecular Assay Negative by naat Influ B Molecular Assay Negative by naat RSV Antigen Negative by naat SARS CoV-2 RNA Rapid CHIQUI Negative Imaging Imaging: EXAM: CHEST RADIOGRAPH TECHNIQUE: Two views of the chest. COMPARISON: 02/26/2023 HISTORY: Fall. FINDINGS: The heart and mediastinum are normal. The lungs and pleural spaces appear within normal limits. No acute abnormality of the bones or soft tissues is identified. IMPRESSION: Normal radiograph of the chest. EXAM: CT OF THE ABDOMEN PELVIS WITH CONTRAST History: Abdominal pain. Comparison: CT abdomen pelvis 02/26/2023 Technique: Multiplanar CT images through the abdomen pelvis were obtained following administration of IV contrast FINDINGS: Lung bases are clear. No acute osseous abnormalities. Status post cholecystectomy. The liver is fatty. No liver or splenic lesions. The pancreas, adrenal glands and kidneys are unremarkable. No free air and no ascites. Uterus is not enlarged. Bladder is not well distended. Fluid filled mildly distended loops of both large and small bowel. Stomach is distended with fluid. No bowel obstruction. No lymphadenopathy. Impression: 1. Probable mild viral gastroenteritis. No bowel obstruction. 2. Hepatic steatosis EXAM: CTA OF THE CHEST. History: Hypoxia, shortness of breath Comparison: CT abdomen pelvis 03/02/2023, CTA of the chest 09/02/2022 Technique: Multiplanar CT images through the thorax were obtained following administration of IV contrast. MIP images and 3-D reconstructions were also acquired. Findings: Heart size is borderline enlarged. No pericardial effusion. Great vessels are unremarkable. No pulmonary arterial filling defects. No enlarged intrathoracic lymph nodes. No consolidation within the lungs. No pleural fluid and no pneumothorax. No suspicious lung masses or lung nodules. For details in the upper abdomen, please see dedicated CT abdomen pelvis done on the same day. Cholecystectomy clips. The liver is fatty. No acute osseous abnormalities. Impression: No pulmonary embolism and no acute intrathoracic process Review Statement Review Statement: I have independently reviewed and interpreted the labs/EKGs/imaging that were ordered by the ER provider. I have reviewed all outside records that are available currently in our EMR including imaging/notes/labs from previous visits. Plan Plan: 1. Benzodiazepine overdose, accidental - Patient was lethargic and unable to stay awake upon arriving to the floor. Flumazenil 0.2 mg IV given and patient had an immediate improvement. Will continue to monitor. Wean O2 when able. Repeat ABG. 2. Polypharmacy - Pt is very unclear on what medications she is and isn't taking. She has told this provider and nurses different histories regarding her medications and providers. 3. Hypertension - Hold home meds today 4. Hypothyridism - Continue home meds 5. Depression/anxiety - Will hold benzos and trazodone today. DVT Prophylaxis: Ambulation Time Spent: Greater than 80 minutes spent with patient, 50% of the time spent with this patient was devoted to counseling and coordination of care. [facility] minutes spent discussing advance care planning. FULL CODE Admit to: Obs Discussed Plan of Care with Dr. Jenn Potter. Father in room and patient gave permission to share information regarding her condition with him. Updated him on plan of care. Medications Medication Orders: Medications Ordered Category Date Time Status Acetaminophen [Tylenol] Meds 03/02/23 09:17 Active 650 mg PO Q6H PRN Ondansetron HCl/Pf [Zofran 4 mg/2 ml] Meds 03/02/23 09:17 Active 4 mg IVP Q6H PRN
[2023-03-02 11:21] LABS: BEecf -9.3 (-2.0-3.0); COHb 2.5 (0.5-1.5); HCO3 17.4 (21-28); TCO2 18.5 (19-24); sO2 94.6 % (94-98); tHb 10.3 g/dl (11.7-17.4)
[2023-03-02 11:23] LABS: ABG PH 7.28 (7.35-7.45)
[2023-03-02] MEDS: TYLENOL PO PRN ×2 (11:39→20:18)
[2023-03-02 14:33] LABS: ABG O2 HGB 93.1 % (95-100); BEecf -8.5 (-2.0-3.0); COHb 2.7 (0.5-1.5); HCO3 18.4 (21-28); MetHb 0.8 (0-1.5); TCO2 19.6 (19-24); sO2 92.3 % (94-98)
[2023-03-02 14:34] LABS: ABG PH 7.27 (7.35-7.45)
[2023-03-02] MEDS: ZOFRAN 4 MG/2 ML IVP PRN (16:39)
[2023-03-02] MEDS: LACTATED RINGERS 1,000 ML IV SCH (20:23)
[2023-03-02] MEDS ORDERED: NYSTATIN CREAM TP SCH (21:00)
[2023-03-03 05:39] LABS: BASOPHILS # (AUTO) 0.1 K/uL (0-0.2); BASOPHILS % (AUTO) 0.5 % (0.0-3.0); EOSINOPHILS # (AUTO) 0.3 K/ul (0.0-0.7); EOSINOPHILS % (AUTO) 2.3 % (0.0-7.0); HEMATOCRIT 34.8 % (37.0-47.0); HEMOGLOBIN 10.5 g/dl (12.0-16.0); IMMATURE GRANULOCYTE # (AUTO) 0.2 (0.0-1.0); IMMATURE GRANULOCYTE % (AUTO) 1.6 % (0.0-5.0); LYMPHOCYTES # (AUTO) 2.6 K/uL (0.60-3.4); LYMPHOCYTES % (AUTO) 17.5 (10.0-50.0); MEAN CORPUSCULAR HEMOGLOBIN 28.3 pg (27.0-31.0); MEAN CORPUSCULAR HGB CONC 30.2 (31.8-35.4); MEAN CORPUSCULAR VOLUME 93.8 fl (81.0-99.0); MONOCYTES # (AUTO) 0.8 K/uL (0.4-2.0); MONOCYTES % (AUTO) 5.7 (0-10); NEUTROPHILS # (AUTO) 10.6 K/ul (2.0-6.9); NEUTROPHILS % (AUTO) 72.4 % (42.2-75.2); PLATELET COUNT 311 10^3/uL (140-440); RDW COEFFICIENT OF VARIATION 15.4 % (11.6-14.8); RED BLOOD COUNT 3.71 10^6/ul (4.20-5.40); WHITE BLOOD COUNT 14.65 K/ul (4.6-10.2)
[2023-03-03 05:49] LABS: ALANINE AMINOTRANSFERASE 24.5 U/L (0-35); ALBUMIN 4.05 g/dL (3.5-5.0); ALKALINE PHOSPHATASE 67.7 U/L (38-126); ASPARTATE AMINO TRANSFERASE 30.5 U/L (14-36); BILIRUBIN,TOTAL 0.51 mg/dL (0.2-1.3); BLOOD UREA NITROGEN 26.4 mg/dL (7-17); CALCIUM 9.19 mg/dL (8.4-10.2); CARBON DIOXIDE 18.4 mmol/L (22-30.0); CHLORIDE 105.1 mmol/L (98-107); CREATININE 1.41 mg/dL (0.60-1.30); GLUCOSE 110.6 mg/dL (74-106); POTASSIUM 3.61 mmol/L (3.5-5.1); SODIUM 131.4 mmol/L (134.5-145); TOTAL PROTEIN 7.88 g/dL (6.3-8.2)
[2023-03-03] MEDS ORDERED: SODIUM CHLORIDE 1,000 ML IV ONE (08:30)
[2023-03-03] MEDS: TYLENOL PO PRN (08:35)
[2023-03-03] MEDS: LACTATED RINGERS 1,000 ML IV SCH (08:50)
[2023-03-03] MEDS ORDERED: NYSTATIN CREAM TP SCH (09:00)
[2023-03-03] MEDS: ZOFRAN 4 MG/2 ML IVP PRN (09:30)
--- NOTE | 2023-03-03 09:44 | DCSUM ---
Admission Date Admission Date: 03/02/23 Discharge Date Discharge Date: 03/03/23 Admission Diagnosis Admission Diagnosis: 1. Benzodiazepine overdose, accidental Discharge Diagnosis Discharge Diagnosis: 1. Benzodiazepine overdose, accidental - resolved 2. Acute hypoxic respiratory failure in setting of overdose, resolved 3. Polypharmacy - Pt is very unclear on what medications she is and isn't taking. She has told this provider and nurses different histories regarding her medications and providers. 4. Hypertension 5. Hypothyridism 6. Depression/anxiety 7. CHAPITO, stage 1, resolved 8. Hyponatremia, resolved 9. Hypokalemia, mild Hospital Provider Hospital Provider: ARNOLDO PORTER PA-C, [facility] Primary Care Physician Primary Care Physician: ANIYAH NATION MD Summary of History and Physical Summary of History and Physical: Patient is a 52-year-old female with past medical history of hypertension, hypothyroidism, anxiety, depression who is well-known to our emergency department who presented for shortness of air and abdominal pain last night. She was noted to be with a O2 saturation of about 90%. She would drop down to 87% with any ambulation. CTA of chest negative for any findings. CT abdomen pelvis negative. Chest x-ray negative. ABG did show a metabolic acidosis. Labs unremarkable other than leukocytosis. Patient admitted to [facility] for hypoxia. On my evaluation patient is able to answer questions appropriately but falling asleep multiple times throughout the conversation. I specifically asked her to please try to stay awake so that we can discuss her medical history which she was attempting to do but still would fall asleep. Her drug screen was positive for amphetamines and benzodiazepines. She does have prescriptions for these. I asked her when was last time she took a benzo and she says she took her clonazepam yesterday. She denies overuse. However after reviewing [facility] she filled a prescription that was written in November by Dr. Martini on January 24 for #45 0.5 mg tablets. She then filled on February 13 #60 1 mg tablets from another provider in [place]. Her father brought in her medications when he came to visit and clonazepam is not in her bag. She was given 0.2 mg IV of flumazenil and had immediate positive response. She has since been able to hold conve rsation without falling asleep. She has been sitting to the side of the bed and requesting something to drink. She denies any attempt to harm herself. Hospital Course Subjective: Patient continued to do well following one dose of IV flumazenil. She continued to say she had been taking her benzos as prescribed. Father told nursing staff she's been self treating with benzos inappropriately, but not in a way to harm herself. Discussed with patient unable to stop cold turkey but would recommend outpatient tapering of benzos. She has continued to be very unclear on what she is and isn't taking. Recommended she f/u with pcp this week and take all her medications in with her to sort out a regimen. She is very noncompliant. She had an CHAPITO and hyponatremia which resolved with fluids. K+ 3.1, given oral supplement. Repeat outpatient. Patient agrees to plan of care. She did not qualify for home O2 and has been on RA today. She has ambulated halls independently. She is alert, oriented. She has a f/u scheduled for a sleep study. Appearance: Pleasant, No Apparent Distress and Alert HEENT: MMM CVS: No Murmur Abdomen: Soft, Non-Tender and No Distention Respiratory: No Dyspnea Extremities: No Edema Vital Signs: Most Recent Vital Signs Temperature 96.8 F L 03/03/23 05:29 Temperature Source Temporal Artery Scan 03/03/23 05:29 Temperature Source Infrared 03/01/23 22:31 Pulse Rate 90 03/03/23 05:29 Respiratory Rate 18 03/03/23 05:29 Blood Pressure 128/70 03/03/23 05:29 Blood Pressure Mean 89 03/03/23 05:29 Blood Pressure Left Arm 109/70 03/02/23 08:15 Blood Pressure Location Right Radial Artery 03/03/23 05:29 Blood Pressure Position Supine 03/02/23 21:33 O2 Sat by Pulse Oximetry 92 L 03/03/23 05:29 Oxygen Delivery Method Room Air 03/03/23 05:29 Oxygen Flow Rate 1.5 03/02/23 10:00 Height 5 ft 8 in 03/02/23 08:15 Weight 306 lb 03/02/23 08:15 Telemetry Type Remote Telemetry 03/03/23 07:00 Telemetry Monitoring Continues 03/03/23 07:00 Telemetry Heart Rate 88 03/03/23 07:00 Telemetry SPO2 93 03/03/23 07:00 EKG OH Interval 0.18 03/03/23 07:00 EKG QRS Interval 0.09 03/03/23 07:00 EKG QT Interval 0.35 03/03/23 01:00 Telemetry Strip Reading NSR 03/03/23 07:00 Imaging: EXAM: CHEST RADIOGRAPH TECHNIQUE: Two views of the chest. COMPARISON: 02/26/2023 HISTORY: Fall. FINDINGS: The heart and mediastinum are normal. The lungs and pleural spaces appear within normal limits. No acute abnormality of the bones or soft tissues is identified. IMPRESSION: Normal radiograph of the chest. EXAM: CT OF THE ABDOMEN PELVIS WITH CONTRAST History: Abdominal pain. Comparison: CT abdomen pelvis 02/26/2023 Technique: Multiplanar CT images through the abdomen pelvis were obtained following administration of IV contrast FINDINGS: Lung bases are clear. No acute osseous abnormalities. Status post cholecystectomy. The liver is fatty. No liver or splenic lesions. The pancreas, adrenal glands and kidneys are unremarkable. No free air and no ascites. Uterus is not enlarged. Bladder is not well distended. Fluid filled mildly distended loops of both large and small bowel. Stomach is distended with fluid. No bowel obstruction. No lymphadenopathy. Impression: 1. Probable mild viral gastroenteritis. No bowel obstruction. 2. Hepatic steatosis EXAM: CTA OF THE CHEST. History: Hypoxia, shortness of breath Comparison: CT abdomen pelvis 03/02/2023, CTA of the chest 09/02/2022 Technique: Multiplanar CT images through the thorax were obtained following administration of IV contrast. MIP images and 3-D reconstructions were also acquired. Findings: Heart size is borderline enlarged. No pericardial effusion. Great vessels are unremarkable. No pulmonary arterial filling defects. No enlarged intrathoracic lymph nodes. No consolidation within the lungs. No pleural fluid and no pneumothorax. No suspicious lung masses or lung nodules. For details in the upper abdomen, please see dedicated CT abdomen pelvis done on the same day. Cholecystectomy clips. The liver is fatty. No acute osseous abnormalities. Impression: No pulmonary embolism and no acute intrathoracic process Lab Results Last 24 Hours: 03/03/23 03/02/23 03/02/23 05:10 14:28 11:03 WBC 14.65 H RBC 3.71 L Hgb 10.5 L Hct 34.8 L MCV 93.8 MCH 28.3 MCHC 30.2 L RDW Coeff of [place] 15.4 H Plt Count 311 Immature Gran % (Auto) 1.6 Neut % (Auto) 72.4 Lymph % (Auto) 17.5 [place] % (Auto) 5.7 Eos % (Auto) 2.3 Baso % (Auto) 0.5 Neut # (Auto) 10.6 H Lymph # (Auto) 2.6 [place] # (Auto) 0.8 Eos # (Auto) 0.3 Baso # (Auto) 0.1 Immature Gran # (Auto) 0.2 Puncture Site Rrad Rrad Base Excess -8.5 L -9.3 L O2 Saturation 92.3 L 94.6 ABG pH 7.27 L* 7.28 L* ABG pCO2 40.0 37.0 ABG pO2 74.0 L 83.0 L ABG HCO3 18.4 L 17.4 L ABG Total CO2 19.6 18.5 L [place] Test + + Hemoglobin 0.8 1.0 Oxyhemoglobin 93.1 L 95.0 Carboxyhemoglobin 2.7 H 2.5 H Total Hemoglobin 11.0 L 10.3 L O2 Delivery Device Ra Ra FiO2 % 21.0 21.0 Sodium 131.4 L Potassium 3.61 Chloride 105.1 Carbon Dioxide 18.4 L Anion Gap 11.51 BUN 26.4 H Creatinine 1.41 H Estimated GFR (MDRD) 39.00 BUN/Creatinine Ratio 18.72 Glucose 110.6 H Calcium 9.19 Total Bilirubin 0.51 AST 30.5 ALT 24.5 Alkaline Phosphatase 67.7 Total Protein 7.88 Albumin 4.05 Globulin 3.83 Albumin/Globulin Ratio 1.05 Discharge Instructions Discharge Planning: Discharge Planning > [address] Jenn Potter. Discharge Medications: Medications at Discharge (Home Meds & RX) levothyroxine 112 mcg tablet (Synthroid) 112 mcg PO DAILY 30 days #30 tabs 10/02/22 blood-glucose meter (Blood Glucose Monitoring kit) #1 ea 12/05/22 hydrochlorothiazide 25 mg tablet 25 mg PO DAILY 30 days #30 tabs 12/27/22 losartan 100 mg tablet See Rx Instructions .Route .COMPLEX #90 tabs 01/10/23 carvedilol 25 mg tablet 25 mg PO BID 30 days #60 tabs 02/01/23 fluconazole 200 mg tablet 200 mg PO DAILY #14 tabs 02/24/23 ketorolac 10 mg tablet 10 mg PO Q6H PRN pain #60 tabs 02/24/23 trazodone 100 mg tablet 100 mg PO BEDTIME PRN insomnia #14 tabs 02/24/23 gabapentin 100 mg capsule See Rx Instructions .Route .COMPLEX #90 caps 02/25/23 nystatin 100,000 unit/gram topical cream 1 applic topical TID 2 weeks #30 grams 03/01/23 ondansetron 4 mg disintegrating tablet 4 mg PO Q8H #21 tabs 03/01/23 clonazepam 1 mg tablet 1 mg PO BID PRN anxiety 03/02/23 fluoxetine 20 mg capsule (Prozac) 20 mg PO DAILY 03/02/23 Discharge Plan Discharge Discharge Orders: Discharge Patient (ONCE); Ordered 03/03/23 Ordered By: ARNOLDO PORTER Activity Restrictions/Additional Instructions: DISCHARGE TO HOME ACTIVITY: TOLERATED DIET: PROGRESS TOLERATED F/U WITH PCP NEXT WEEK TO DISCUSS YOUR MEDICATIONS ONLY TAKE MEDICATIONS PRESCRIBED SLEEP STUDY RECOMMENDED Instructions: Hypoxia (ED), Benzodiazepine Overdose (GEN) Care Plan Goals: Problem: Knowledge Deficit-Substance Abuse Goal: Understand disease process Instructions: Identify necessary life-style changes Participate in treatment program Patient Disposition: HOME SELF-CARE Prescriptions: Continued levothyroxine [Synthroid] 112 mcg tablet 112 mcg PO DAILY 30 Days Qty: 30 2RF losartan 100 mg tablet See Rx Instructions .ROUTE .COMPLEX Qty: 90 1RF Dose Instruction: TAKE ONE TABLET DAILY Rx Instructions: TAKE ONE TABLET DAILY gabapentin 100 mg capsule See Rx Instructions .ROUTE .COMPLEX Qty: 90 0RF Dose Instruction: TAKE ONE CAPSULE THREE TIMES DAILY NEEDED FOR NERVE PAIN Rx Instructions: TAKE ONE CAPSULE THREE TIMES DAILY NEEDED FOR NERVE PAIN nystatin 100,000 unit/gram cream 1 applic topical TID 14 Days Qty: 30 0RF ondansetron 4 mg tablet,disintegrating 4 mg PO Q8H Qty: 21 0RF fluconazole 200 mg tablet 200 mg PO DAILY Qty: 14 0RF trazodone 100 mg tablet 100 mg PO BEDTIME PRN (Reason: insomnia) Qty: 14 0RF clonazepam 1 mg tablet 1 mg PO BID PRN (Reason: anxiety) fluoxetine [Prozac] 20 mg capsule 20 mg PO DAILY hydrochlorothiazide 25 mg tablet 25 mg PO DAILY 30 Days Qty: 30 2RF carvedilol 25 mg tablet 25 mg PO BID 30 Days Qty: 60 1RF Discontinued ketorolac 10 mg tablet 10 mg PO Q6H PRN (Reason: pain) Qty: 60 0RF No Action (DME) blood-glucose meter [Blood Glucose Monitoring] Kit See Rx Instructions .ROUTE Qty: 1 0RF Hold Instructions: Patient Refused Rx Instructions: As directed Did you review [place] [employer] TECHNICAL DIRECTOR for ALL controlled substances?: Yes Discussed opioids are addictive and Narcan is available by prescription or from pharmacy.: No Condition: Good Referrals: ANIYAH NATION MD [Primary Care Provider] - Stand Alone Forms: Work/School Release ED
[2023-03-03 10:18] VITALS: BP 118/75; PULSE 92; RESP 19; TEMP 96.5
[2023-03-03 12:08] LABS: BLOOD UREA NITROGEN 21.2 mg/dL (7-17); CALCIUM 9.15 mg/dL (8.4-10.2); CARBON DIOXIDE 21.2 mmol/L (22-30.0); CHLORIDE 105.9 mmol/L (98-107); CREATININE 1.14 mg/dL (0.60-1.30); GLUCOSE 115.5 mg/dL (74-106); POTASSIUM 3.13 mmol/L (3.5-5.1)
[2023-03-03] MEDS ORDERED: K-DUR PO ONE (12:21)
== END 2023-03-03 12:35 | disposition home or self-care (01) ==
LOC: MEDSURG B 22:26 → ED 22:26 → MEDSURG B 03-02 08:19
PROVIDERS: ADMIT Student in an Organized Health Care Education/Training Program; ATTEND Physician Assistant
DX: T42.4X5A Adverse effect of benzodiazepines, initial encounter; R10.9 Unspecified abdominal pain; R06.02 Shortness of breath; Z20.822 Contact with and (suspected) exposure to COVID-19; I10 Essential (primary) hypertension; E03.9 Hypothyroidism, unspecified; B37.2 Candidiasis of skin and nail; R09.02 Hypoxemia; Z51.81 Encounter for therapeutic drug level monitoring; E87.6 Hypokalemia; D72.829 Elevated white blood cell count, unspecified; K76.0 Fatty (change of) liver, not elsewhere classified; Z79.899 Other long term (current) drug therapy; F32.A Depression, unspecified; F41.9 Anxiety disorder, unspecified

== ENCOUNTER 2023-03-09 19:23 | Observation (INO) ==
--- NOTE | 2023-03-09 19:50 | ED.PDOC ---
General ED Provider: Dr. TANVI MOSES DO Chief Complaint: Shortness of Air Stated Complaint: Patient is a 52 yo F here for hypoxia and sleepiness Patietn arrives afebrile and hypoxic 80% by ems 2 L NC canula placed Patient alert and oriented x4 GCS 15, butappears tired Patient here this motnh for benzodiazepine overdose and hypoxia Patient has multiple benzo prescriptions [place] different states and is abusing this medicaiont Patient recoeved flumazenil last time on the wards Patient alert and oriented x 4 GCS 15, will allow her to metabolize medications, benfits of reversal do not outwieght risk of intractable seizure at thsi time Patient amenable to work up Time Seen by Provider: 03/09/23 19:32 Primary Care Provider: ANIYAH NATION MD Nursing and Triage Documentation Reviewed and Agree: Yes Does patient meet sepsis criteria?: No System Inflammatory Response Syndrome: Not Applicable Sepsis Protocol: For patient's 13 years and over: Temp is 96.8 and below OR 101 and greater Pulse >90 BPM Resp >20/minute Acutely Altered Mental Status Are patient's symptoms suggestive of a new infection, such as: -Pneumonia -Skin, Soft Tissue -Endocarditis -UTI -Bone, Joint Infection -Implantable Device -Acute Abdominal Infection -Wound Infection -Meningitis -Blood Stream Catheter Infection -Unknown Review of Systems Review Of Systems Constitutional: Denies Chills or Fever Eyes: Denies Blindness or Drainage Ears, Nose, Mouth, Throat: Denies Ear pain or Ear discharge Respiratory: Reports Shortness of Breath; Denies Cough or Stridor Cardiac: Denies Chest pain or Lightheadedness GI: Denies Abdominal pain, Constipated or Diarrhea : Denies Burning or Dysuria Musculoskeletal: Denies Back pain or Muscle pain Skin: Denies Bruising or Rash Neurological: Denies Anxiety or Headache Endocrine: Denies Excessive sweating or Increased hunger Hematologic/Lymphatic: Denies Anemia or Blood clots All Other Systems: Reviewed and Negative [facility] Medical History DVT (deep venous thrombosis) I82.409 - Acute embolism and thrombosis of unspecified deep veins of unspecified lower extremity (ICD-10) Heart disease I51.9 - Heart disease, unspecified (ICD-10) High cholesterol E78.00 - Pure hypercholesterolemia, unspecified (ICD-10) Tear meniscus knee S83.209A - Unspecified tear of unspecified meniscus, current injury, unspecified knee, initial encounter (ICD-10) Family History Mother Breast cancer Hypertension FATHER Hypertension Myocardial infarct Social History Smoking and tobacco status: Never smoker Alcohol intake: current Alcohol intake frequency: holidays/special occasions only Substance use type: does not use Counseling given: No Candace/yazdanism: MORMONISM Special candace needs: No Agree to transfusion: Yes Adopted: No Caregiver/support person: Yes Household members: none Housing: apartment Marital status: D Lives independently: Yes Number of children: 2 Number of grandchildren: 0 Highest education level completed: Bachelor's degree Financial difficulty paying for basics: very hard service: No Current occupational status: employed 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 Pets and animals: Yes Leisure activites: art History of recent travel: No Sexually active: No Do you think of yourself as: straight/heterosexual Current gender identity: female Seatbelt use: always Drives intoxicated or rides with intoxicated driver trainee: No Water heater temperature set < 120 degrees: Yes Working smoke detector in home: Yes Fire extinguisher in home: No Carbon monoxide detector in home: No Firearms in home: No Surgical History History of arthroscopy Z98.890 - Other specified postprocedural states (ICD-10) History of section Z98.891 - History of uterine scar from previous surgery (ICD-10) History of tubal ligation Z98.51 - Tubal ligation status (ICD-10) Status post appendectomy Z90.49 - Acquired absence of other specified parts of digestive tract (ICD- 10) Status post cholecystectomy Z90.49 - Acquired absence of other specified parts of digestive tract (ICD- 10) Female Reproductive History Menstrual Hx Hysterectomy: No Hx Tubal Ligation: No Physical Exam Physical Exam Appearance: Reports No pain distress, Well-nourished and Obese Ill-appearing: Mild Pain Distress: Not Applicable Eyes: Reports JOE, EOMI and Conjunctiva clear ENT: Reports Ears normal, Nose normal and Oropharynx normal Neck: Supple Respiratory: Reports Airway patent; Denies Crackles, Rhonchi or Wheezes Cardiovascular: Denies No rub or No murmur GI/: Reports Soft, Nontender and Other (central abdominal obesity) Musculoskeletal: Reports Normal strength and ROM intact Skin: Reports Warm and Dry Neurological: Reports Sensation intact and Motor intact Psychiatric: Reports Affect appropriate and Mood appropriate Interpretation EKG Interpretation EKG Interpretation By: ED Physician Time of EKG #1: 19:50 Rate: Normal Rhythm: Sinus Ectopy: None Luckey: NL ST Segment: Normal Interpretation: nsr rate 80 Radiology Interpretation Radiology Interpretation By: ED Physician Radiology Results: Negative Exam Interpreted: CXR Xray Comments: No pleural effusions no gross consolidation Radiology Interpretation By: ED Physician Radiology Results: Negative Exam Interpreted: CXR and Other Xray Comments: No post procedural pneumothorax Procedures Central Line Follow Proper Hand Washing Protocol: Yes Indication: Present Hypotension Central Line Lumen: Triple Central Line Procedure: Yes Betadine Prep Central Line Postion: Internal jugular (R) Anesthesia: Local Progress: Patient aborted procedure Critical Care Note Critical Care Note Total Critical Care Time (mins): 65 Comments: repeat exams, consulting hospitalist poison control, changing therapies for hypoxia and low blood pressure and benzodiazepine toxidrome Course Course 03/09/23 20:10 03/09/23 20:10 Orders, Labs, Meds: Lab Review 03/09/23 03/09/23 03/09/23 20:00 20:10 20:50 WBC 13.49 H RBC 3.57 L Hgb 10.0 L Hct 32.3 L MCV 90.5 MCH 28.0 MCHC 31.0 L RDW Coeff of [place] 14.9 H Plt Count 335 Neutrophils % (Manual) 61.0 Band Neutrophils % 6.0 H Lymphocytes % (Manual) 24.0 Monocytes % (Manual) 3.0 Eosinophils % (Manual) 0.0 Basophils % (Manual) 0.0 Metamyelocytes % 4.0 H Myelocytes % 2.0 H Platelet Estimate 330 Anisocytosis Not present VBG pH 7.41 H VBG pCO2 50 VBG pO2 93 H VBG HCO3 31.7 H VBG O2 Saturation 97.3 H Sodium 136.1 Potassium 3.64 Chloride 100.8 Carbon Dioxide 29.9 Anion Gap 9.04 BUN 18.8 H Creatinine 0.92 Estimated GFR (MDRD) 65.00 BUN/Creatinine Ratio 20.43 Glucose 116.3 H Lactic Acid 1.16 Calcium 8.54 Total Bilirubin 0.18 L AST 29.3 ALT 24.5 Alkaline Phosphatase 65.0 Troponin I < 0.012 Total Protein 7.22 Albumin 3.84 Globulin 3.38 Albumin/Globulin Ratio 1.13 Free T4 0.87 D-Dimer 739.89 H Urine Color Yellow Urine Clarity Clear Urine pH 5.5 Ur Specific Mason >=1.030 Urine Protein Trace H Urine Glucose (UA) Negative Urine Ketones Negative Urine Blood Trace-intact H Urine Nitrite Negative Urine Bilirubin Negative Urine Urobilinogen 0.2 Ur Leukocyte Esterase 1+ H Urine Microscopic RBC 2-5 Urine Microscopic WBC 10-20 Ur Squamous Epith Cells 2-5 Urine Bacteria 1+ Salicylate Level mg/dL < 1.00 Urine Opiates Screen Negative Ur Oxycodone Screen Negative Urine Methadone Screen Negative Ur Propoxyphene Screen Negative Acetaminophen < 10.0 L Ur Barbiturates Screen Negative U Tricyclic Antidepress Negative Ur Phencyclidine Scrn Negative Ur Amphetamine Screen Positive H U Methamphetamines Scrn Negative U Benzodiazepines Scrn Positive H Urine Cocaine Screen Negative U Cannabinoids Screen Positive H Plasma/Serum Alcohol < 10.0 Influ A Molecular Assay Influ B Molecular Assay RSV Antigen SARS CoV-2 RNA Rapid [place] 03/09/23 23:05 WBC RBC Hgb Hct MCV MCH MCHC RDW Coeff of [place] Plt Count Neutrophils % (Manual) Band Neutrophils % Lymphocytes % (Manual) Monocytes % (Manual) Eosinophils % (Manual) Basophils % (Manual) Metamyelocytes % Myelocytes % Platelet Estimate Anisocytosis VBG pH VBG pCO2 VBG pO2 VBG HCO3 VBG O2 Saturation Sodium Potassium Chloride Carbon Dioxide Anion Gap BUN Creatinine Estimated GFR (MDRD) BUN/Creatinine Ratio Glucose Lactic Acid Calcium Total Bilirubin AST ALT Alkaline Phosphatase Troponin I Total Protein Albumin Globulin Albumin/Globulin Ratio Free T4 D-Dimer Urine Color Urine Clarity Urine pH Ur Specific Mason Urine Protein Urine Glucose (UA) Urine Ketones Urine Blood Urine Nitrite Urine Bilirubin Urine Urobilinogen Ur Leukocyte Esterase Urine Microscopic RBC Urine Microscopic WBC Ur Squamous Epith Cells Urine Bacteria Salicylate Level mg/dL Urine Opiates Screen Ur Oxycodone Screen Urine Methadone Screen Ur Propoxyphene Screen Acetaminophen Ur Barbiturates Screen U Tricyclic Antidepress Ur Phencyclidine Scrn Ur Amphetamine Screen U Methamphetamines Scrn U Benzodiazepines Scrn Urine Cocaine Screen U Cannabinoids Screen Plasma/Serum Alcohol Influ A Molecular Assay Negative by naat Influ B Molecular Assay Negative by naat RSV Antigen Negative by naat SARS CoV-2 RNA Rapid [place] Negative Orders Category Date Time Status OBSERVATION [PLACE PATIENT OBSERVATION] .TO MEDSURG ADMISSION 03/10/23 06:56 Active (MONITORED BED) EKG-(ED ONLY) Stat CARDIO 03/09/23 19:34 Completed VBG DRAW REQUEST Stat CARDIO 03/09/23 19:40 Completed VBG DRAW REQUEST Stat CARDIO 03/09/23 19:40 Completed NPO REMINDER: IMAGING ONCE CARE 03/09/23 21:25 Completed TELEMETRY MONITORING TELE CARE 03/10/23 06:56 Active OXYGEN [ED APPLY O2] .ONCE EMERGENCY 03/09/23 19:36 Active ACETAMINOPHEN Stat LAB 03/09/23 20:10 Completed BLOOD ALCOHOL Stat LAB 03/09/23 20:10 Completed BLOOD CULTURE Stat LAB 03/09/23 22:05 Received CBC W/ AUTO DIFF Stat LAB 03/09/23 20:10 Completed COMPREHENSIVE METABOLIC PANEL Stat LAB 03/09/23 20:10 Completed COVID [SARS COV-2 RNA RAPID [place]I] Stat LAB 03/09/23 23:05 Completed D-DIMER Stat LAB 03/09/23 20:10 Completed DRUG SCREEN (RAPID FOR ED) [DRUG SCREEN, URINE, RAPID] LAB 03/09/23 20:50 Completed Stat FLU A & B MOLECULAR [FLU A/B MOLECULAR] Stat LAB 03/09/23 23:05 Completed FREE T4 (FREE THYROXINE) Stat LAB 03/09/23 20:10 Completed LACTIC ACID Stat LAB 03/09/23 20:10 Completed MANUAL DIFFERENTIAL Stat LAB 03/09/23 20:10 Completed RSV Stat LAB 03/09/23 23:05 Completed SALICYLATE Stat LAB 03/09/23 20:10 Completed TROPONIN I Stat LAB 03/09/23 20:10 Completed UA [URINALYSIS C & S IF INDICATED] Stat LAB 03/09/23 20:50 Completed URINE CULTURE Stat LAB 03/09/23 20:50 Received VBG [VENOUS BLOOD GAS] Stat LAB 03/09/23 20:00 Completed Ceftriaxone/D5w 2 gm Premix [Rocephin 2 gm/50 ml D5w] Meds 03/09/23 21:28 Discontinued 2 gm IV ONCE ONE Ceftriaxone/D5w 2 gm Premix [Rocephin 2 gm/50 ml D5w] Meds 03/09/23 21:39 Discontinued 2 gm IV ONCE STA Ceftriaxone/D5w 2 gm Premix [Rocephin 2 gm/50 ml D5w] Meds 03/09/23 22:00 Discontinued 2 gm in 50 ml IV ONCE Metronidazole/Sodium Chloride [Flagyl 500 mg/100 ml] Meds 03/09/23 22:57 Discontinued 500 mg in 100 ml IV ONCE Sodium Chloride 0.9% [Sodium Chloride] 1,000 ml Meds 03/09/23 20:40 Discontinued IV BOLUS Sodium Chloride 0.9% [Sodium Chloride] 1,000 ml Meds 03/09/23 21:24 Discontinued IV BOLUS Sodium Chloride 0.9% [Sodium Chloride] 1,000 ml Meds 03/09/23 23:58 Discontinued IV BOLUS CHEST, 1V AP ONLY Stat RADS 03/09/23 23:[address] CHEST PE PROTOCOL Stat RADS 03/09/23 21:25 Completed CXR [CHEST, 2 VIEWS PA & LAT] Stat RADS 03/09/23 19:35 Completed Medications Discontinued Medications Generic Name Dose Route Start Last Admin Trade Name Adisq PRN Reason Stop Dose Admin Sodium Chloride 1,000 mls @ 1,000 mls/hr 03/09/23 20:40 03/09/23 21:15 Sodium Chloride IV 03/09/23 21:39 1,000 mls/hr BOLUS STA Administration Sodium Chloride 1,000 mls @ 1,000 mls/hr 03/09/23 21:24 03/09/23 21:58 Sodium Chloride IV 03/09/23 22:23 1,000 mls/hr BOLUS STA Administration CEFTRIAXONE/D5W 2 GM PREMIX 2 gm in 50 mls @ 75 mls/hr 03/09/23 22:00 03/09/23 21:59 Rocephin 2 Gm/50 Ml D5w IV 03/09/23 22:39 Not Given ONCE ONE Metronidazole 500 mg in 100 mls @ 100 mls/hr 03/09/23 22:57 03/09/23 23:15 Flagyl 500 Mg/100 Ml IV 03/09/23 23:56 100 mls/hr ONCE ONE Administration Sodium Chloride 1,000 mls @ 1,000 mls/hr 03/09/23 23:58 03/10/23 00:08 Sodium Chloride IV 03/10/23 00:57 1,000 mls/hr BOLUS STA Administration Vital Signs: Temp Pulse Resp BP Pulse Ox 07/22/23 19:23 98.5 F 88 24 H 99/62 84 L delay in peripheral IV IV placed fluid resuscitation Poison control recommends supportive care Patient eating drinking and had BM at bedside commode alert and oriented x 4 GCS 15, but appears tired Poison control case [id number] Sepsis bundle added, will place R IJ CVC for levophed MAP 60-68 MDM: Patient is a 52 yo F here for benzodiazepine overdose Patient arrives hypoxic 84% on room air with low normal blood pressure afebrile improved to 95% on 3 L NC Patient here recently for same Exam concerning for appearing tired and having hypoxia 3+ labs and 3 images reviewed by me Poison control recommends expectant management Hospitalist agrees with admission d dimer elevated, CT shows BL pneumonia - in setting of benzodiazepine toxidrome I suspect aspiration pneumonia Rocephin and flagyl ordered, sepsis bolus patient has MAP above and below MAP of 65 throughout stay Patient allowed me to try but did not tolerate R IJ CVC procedure - it was aborted- no complicaitons Will continue fluids and try peripheral pressors if needed MAP 69 at this time, 91/59 WDX: 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
[2023-03-09 20:10] LABS: VBG HCO3 31.7 (22-26); VBG OXYGEN SATURATION 97.3 (60-80); VBG PH 7.41 (7.30-7.40)
[2023-03-09 20:13] LABS: HEMATOCRIT 32.3 % (37.0-47.0); MEAN CORPUSCULAR VOLUME 90.5 fl (81.0-99.0); PLATELET COUNT 335 10^3/uL (140-440); RDW COEFFICIENT OF VARIATION 14.9 % (11.6-14.8); RED BLOOD COUNT 3.57 10^6/ul (4.20-5.40); WHITE BLOOD COUNT 13.49 K/ul (4.6-10.2)
[2023-03-09 20:30] LABS: ALANINE AMINOTRANSFERASE 24.5 U/L (0-35); ALBUMIN 3.84 g/dL (3.5-5.0); ASPARTATE AMINO TRANSFERASE 29.3 U/L (14-36); BILIRUBIN,TOTAL 0.18 mg/dL (0.2-1.3); BLOOD UREA NITROGEN 18.8 mg/dL (7-17); CALCIUM 8.54 mg/dL (8.4-10.2); CARBON DIOXIDE 29.9 mmol/L (22-30.0); CHLORIDE 100.8 mmol/L (98-107); CREATININE 0.92 mg/dL (0.60-1.30); GLUCOSE 116.3 mg/dL (74-106); POTASSIUM 3.64 mmol/L (3.5-5.1); SODIUM 136.1 mmol/L (134.5-145); TOTAL PROTEIN 7.22 g/dL (6.3-8.2)
--- NOTE | 2023-03-09 20:37 | DI ---
EXAM: CHEST RADIOGRAPH (2 VIEW) TECHNIQUE: AP and Lateral Chest Radiographs. HISTORY: Shortness of breath COMPARISON: 03/01/2023 FINDINGS: Lines, Tubes, Devices: None. Lungs and Pleura: Limited inspiration. No focal consolidation. No pleural effusion. No pneumothor ax. No pulmonary edema. Cardiac silhouette: Enlarged. Bones: No acute abnormality. IMPRESSION: No acute radiographic abnormality.
[2023-03-09] MEDS ORDERED: SODIUM CHLORIDE 1,000 ML IV STA ×3 (20:40→23:58)
[2023-03-09 20:48] LABS: TROPONIN I < 0.012 ng/ml (0.0000-0.120)
[2023-03-09 20:50] LABS: ANISOCYTOSIS NOT PRESENT (NOT PRESENT)
[2023-03-09 20:53] LABS: PLATELET ESTIMATE 330
[2023-03-09 21:21] LABS: BILIRUBIN,URINE Negative (NEGATIVE); CLARITY,URINE Clear (CLEAR); COLOR,URINE Yellow (YELLOW); GLUCOSE, URINE (UA) Negative (NEGATIVE); KETONES,URINE Negative (NEGATIVE); LEUKOCYTE ESTERASE ,URINE 1+ (NEGATIVE); NITRITE,URINE Negative (NEGATIVE); PH,URINE 5.5 (5-9); PROTEIN,URINE Trace (NEGATIVE); URINE, BLOOD Trace-intact (NEGATIVE); UROBILINOGEN,URINE 0.2 (0.2)
[2023-03-09 21:24] LABS: ACETAMINOPHEN < 10.0 ug/ml (10-30); BLOOD ALCOHOL < 10.0 mg/dL (0.0-50.0); SALICYLATE < 1.00 mg/dL (0-20.0)
[2023-03-09 21:25] LABS: BACTERIA,URINE 1+ (NOT PRESENT)
[2023-03-09] MEDS ORDERED: ROCEPHIN IV ONE (21:28)
[2023-03-09] MEDS ORDERED: D5W IV ONE (21:28)
[2023-03-09 21:32] LABS: AMPHETAMINE SCREEN,URINE POSITIVE (NEGATIVE); BARBITURATE SCREEN,URINE NEGATIVE (NEGATIVE); BENZODIAZEPINES SCREEN,URINE POSITIVE (NEGATIVE); CANNABINOID SCREEN,URINE POSITIVE (NEGATIVE); COCAIN SCREEN,URINE NEGATIVE (NEGATIVE); METHADONE URINE SCREEN NEGATIVE (NEGATIVE); METHAMPHETAMINES SCREEN,URINE NEGATIVE (NEGATIVE); OPIATE SCREEN,URINE NEGATIVE (NEGATIVE); OXYCODONE URINE SCREEN NEGATIVE (NEGATIVE); PHENCYCLIDINE SCREEN,URINE NEGATIVE (NEGATIVE); PROPOXYPHENE URINE SCREEN NEGATIVE (NEGATIVE); TRICYCLIC ANTIDEPRESSANTS URIN NEGATIVE (NEGATIVE)
[2023-03-09] MEDS ORDERED: D5W IV STA (21:39)
[2023-03-09] MEDS ORDERED: ROCEPHIN IV STA (21:39)
[2023-03-09] MEDS ORDERED: ROCEPHIN 2 GM/50 ML D5W 2 GM/50 ML BAG IV ONE (22:00)
--- NOTE | 2023-03-09 22:16 | CT ---
EXAM: CT PULMONARY ANGIOGRAM. HISTORY: Elevated D-dimer. Hypoxia. PROCEDURE: After the intravenous injection of contrast a CT pulmonary angiogram was performed with c ontiguous axial CT images of the chest with multiplanar reformats, MIP images and 3-D reformats. All CT scans are performed using dose optimization techniques as appropriate to a performed exam includi ng the following: Automated exposure control, Adjustment of the mA and/or kV according to patient siz e, Use of iterative reconstruction technique. FINDINGS: There is normal enhancement of the pulmonary arteries with no evidence of pulmonary embolis m. The heart is enlarged. The thoracic aorta is within normal limits in size. The mediastinum is n ormal in appearance. There are bilateral ground-glass opacities and minimal bibasilar consolidation, consistent with pneumonia. There are degenerative changes in the spine. No acute findings in the v isualized portion of the abdomen. Impression: No evidence of pulmonary embolism. Bilateral pneumonia as described. Cardiomegaly. All CT scans are performed using dose optimization techniques as appropriate to the performed exam an d include at least one of the following: Automated exposure control, adjustment of the mA and/or kV according t o size, and the use of iterative reconstruction technique.
[2023-03-09] MEDS ORDERED: FLAGYL 500 MG/100 ML 500 MG/100 ML BAG IV ONE (22:57)
[2023-03-09 23:37] LABS: MOLECULAR FLU A NEGATIVE BY NAAT (NEGATIVE); MOLECULAR FLU B NEGATIVE BY NAAT (NEGATIVE); RSV MOLECULAR NEGATIVE BY NAAT (NEGATIVE)
[2023-03-09 23:50] LABS: SARS COV-2 RNA RAPID NAAT NEGATIVE (NEGATIVE)
--- NOTE | 2023-03-10 00:36 | DI ---
EXAM: AP CHEST. HISTORY: Failed right IJ. Chest x-ray screening post procedure. FINDINGS: There is a chronic healed fracture of the right clavicle. The cardiac silhouette is enlarg ed. The pulmonary vasculature is within normal limits. There is minimal left basilar subsegmental a telectasis. No pneumothorax. Impression: Minimal left basilar subsegmental atelectasis. Cardiomegaly.
[2023-03-10] MEDS ORDERED: TYLENOL PO PRN (08:29)
[2023-03-10] MEDS ORDERED: ALBUTEROL 0.083% NEB NEB PRN (08:31)
[2023-03-10 08:36] VITALS: BMI 48.2
[2023-03-10] MEDS: SOLU-MEDROL 125 MG IVP SCH ×3 (09:11→21:36)
[2023-03-10] MEDS: ROCEPHIN 1 GM/50 ML D5W 1 GM/50 ML BAG IV SCH (09:11)
[2023-03-10] MEDS: ZITHROMAX 500 MG in SODIUM CHLORIDE 250 ML IV SCH (10:01)
[2023-03-10] MEDS: DUONEB NEB SCH ×4 (10:49→21:33)
--- NOTE | 2023-03-10 11:14 | PCM ---
Date of Service Date Seen by Provider: 03/10/23 Time Seen by Provider: 08:30 Admit Day/Time Admission Date: 03/10/23 Reason for Admission Chief Complaint: HYPOXIA Hospital Provider Hospital Provider: JENSEN MENDOZA, [facility] [place] Primary Care Physician: ANIYAH NATION MD History of Present Illness History of Present Illness: 52 yo female presented to the ER last night with complaints of shortness of breath. Patient states that last night before bed she took 2 snooze berries to help her sleep that contain marijuana. After taking that, she reports that she was unable to breathe well. She was recently admitted 1 week ago for a benzodiazepine overdose and required treatment with flumazenil while she was here due to decline in respiratory status. She was then discharged home. This admission she was found to have bilateral pneumonia on CT scan and was hypoxic in the 80s on arrival to the ER. She was placed on 2L and tolerated well bringing her sat up to 96%. Upon my exam, she is alert, and oriented x 4. Answering all questions appropriately. Requesting food and drink constantly. Denies any fever at home, chills, body aches, chest pain, N/V/D. Does report nonproductive cough that is new. Case Discussed With Case Discussed With: Patient's case was discussed with the ER Physicians, Dr. Guardado. [facility] Medical History (Updated 03/10/23 @ 11:11 by JENSEN MENDOZA) ADHD, predominantly inattentive type F90.0 - Attention-deficit hyperactivity disorder, predominantly inattentive type (ICD-10) DVT (deep venous thrombosis) I82.409 - Acute embolism and thrombosis of unspecified deep veins of unspecified lower extremity (ICD-10) Generalized anxiety disorder F41.1 - Generalized anxiety disorder (ICD-10) Heart disease I51.9 - Heart disease, unspecified (ICD-10) High cholesterol E78.00 - Pure hypercholesterolemia, unspecified (ICD-10) Hypertension I10 - Essential (primary) hypertension (ICD-10) Hypothyroidism E03.9 - Hypothyroidism, unspecified (ICD-10) PTSD (post-traumatic stress disorder) F43.10 - Post-traumatic stress disorder, unspecified (ICD-10) Tear meniscus knee S83.209A - Unspecified tear of unspecified meniscus, current injury, unspecified knee, initial encounter (ICD-10) Type 2 diabetes mellitus with hemoglobin A1c goal of less than 7.0% E11.9 - Type 2 diabetes mellitus without complications (ICD-10) Surgical History History of arthroscopy Z98.890 - Other specified postprocedural states (ICD-10) History of section Z98.891 - History of uterine scar from previous surgery (ICD-10) History of tubal ligation Z98.51 - Tubal ligation status (ICD-10) Status post appendectomy Z90.49 - Acquired absence of other specified parts of digestive tract (ICD- 10) Status post cholecystectomy Z90.49 - Acquired absence of other specified parts of digestive tract (ICD- 10) Family History Mother Breast cancer Hypertension FATHER Hypertension Myocardial infarct Social History Smoking and tobacco status: Never smoker Alcohol intake: current Alcohol intake frequency: holidays/special occasions only Substance use type: does not use and marijuana Counseling given: No Candace/confucianist: SPIRITISM Special candace needs: No Agree to transfusion: Yes Adopted: No Caregiver/support person: Yes Household members: none Housing: apartment Marital status: D Lives independently: Yes Number of children: 2 Number of grandchildren: 0 Highest education level completed: Bachelor's degree Financial difficulty paying for basics: very hard service: No Current occupational status: employed 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 Pets and animals: Yes Leisure activites: art History of recent travel: No Sexually active: No Do you think of yourself as: straight/heterosexual Current gender identity: female Seatbelt use: always Drives intoxicated or rides with intoxicated stunt driver: No Water heater temperature set < 120 degrees: Yes Working smoke detector in home: Yes Fire extinguisher in home: No Carbon monoxide detector in home: No Firearms in home: No Allergies Allergies Allergy/AdvReac Type Severity Reaction Status Date / Time ciprofloxacin [From Cipro] AdvReac Intermediate Hives Verified 03/10/23 07:07 Penicillins AdvReac Swelling Verified 03/10/23 07:07 Current Medications Home Medications levothyroxine 112 mcg tablet (Synthroid) 112 mcg PO DAILY 30 days #30 tabs 10/02/22 [Rx Confirmed 03/09/23 Last Taken 03/01/23] blood-glucose meter (Blood Glucose Monitoring kit) #1 ea 12/05/22 [Rx Confirmed 03/10/23 Last Taken Unknown] losartan 100 mg tablet See Rx Instructions .Route .COMPLEX #90 tabs 01/10/23 [Rx Confirmed 03/09/23 Last Taken 03/01/23] carvedilol 25 mg tablet 25 mg PO BID 30 days #60 tabs 02/01/23 [Rx Confirmed 03/09/23 Last Taken 03/01/23] trazodone 100 mg tablet 100 mg PO BEDTIME PRN insomnia #14 tabs 02/24/23 [Rx Confirmed 03/09/23 Last Taken 03/01/23] gabapentin 100 mg capsule See Rx Instructions .Route .COMPLEX #90 caps 02/25/23 [Rx Confirmed 03/09/23 Last Taken 03/01/23] nystatin 100,000 unit/gram topical cream 1 applic topical TID 2 weeks #30 grams 03/01/23 [Rx Confirmed 03/09/23 Last Taken 03/01/23] ondansetron 4 mg disintegrating tablet 4 mg PO Q8H #21 tabs 03/01/23 [Rx Confirmed 03/09/23 Last Taken 03/01/23] clonazepam 1 mg tablet 1 mg PO BID PRN anxiety 03/02/23 [History Confirmed 03/09/23 Last Taken Unknown] fluoxetine 20 mg capsule (Prozac) 20 mg PO DAILY 03/02/23 [History Confirmed 03/09/23 Last Taken Unknown] dextroamphetamine-amphetamine 10 mg tablet (Adderall) 10 mg PO QDAY PRN "ADHD" 03/06/23 [History Confirmed 03/09/23 Last Taken Unknown] potassium chloride 20 mEq tablet,extended release 20 meq PO BID 7 days #14 tabs 03/07/23 [Rx Confirmed 03/09/23 Last Taken Unknown] ketorolac 10 mg tablet 10 mg PO Q6H PRN pain 03/10/23 [History Confirmed 03/10/23 Last Taken Unknown] metformin 500 mg tablet 500 mg PO DAILY 03/10/23 [History Confirmed 03/10/23 Last Taken Unknown] Home Acetaminophen (Acetaminophen 325 Mg Tablet) 650 mg PO Q4H PRN PRN Reason: Mild Pain Albuterol Sulfate (Albuterol Sulfate 0.083% Vial.Neb) 2.5 mg NEB RTQ4H PRN PRN Reason: Wheezing Albuterol/Ipratropium (Ipratropium/Albuterol Vial.Neb) 3 ml NEB RTQ4H [facility] Last Admin: 03/10/23 10:49 Dose: 3 ml Fluoxetine HCl (Fluoxetine Hcl 20 Mg Capsule) 20 mg PO DAILY [facility] Last Admin: 03/10/23 11:33 Dose: 20 mg CEFTRIAXONE/D5W 1 GM PREMIX (Rocephin 1 Gm/50 Ml D5w) 1 gm in 50 mls @ 75 mls/hr IV DAILY [facility] Stop: 03/13/23 08:59 Last Admin: 03/10/23 09:11 Dose: 75 mls/hr Azithromycin 500 mg/ Sodium (Chloride) 250 mls @ 125 mls/hr IV DAILY [facility] Stop: 03/13/23 08:59 Last Admin: 03/10/23 10:01 Dose: 125 mls/hr Levothyroxine Sodium (Levothyroxine Sodium 112 Mcg Tablet) 112 mcg PO QDAC [facility] Last Admin: 03/10/23 11:33 Dose: 112 mcg Methylprednisolone Sodium Succinate (Methylprednisolone Sod Succ/Pf 125 Mg/2 Ml Vial) 40 mg IVP Q8HR [facility] Last Admin: 03/10/23 09:11 Dose: 40 mg Discontinued Medications Sodium Chloride (Sodium Chloride) 1,000 mls @ 1,000 mls/hr IV BOLUS STA Stop: 03/09/23 21:39 Last Admin: 03/09/23 21:15 Dose: 1,000 mls/hr Sodium Chloride (Sodium Chloride) 1,000 mls @ 1,000 mls/hr IV BOLUS STA Stop: 03/09/23 22:23 Last Admin: 03/09/23 21:58 Dose: 1,000 mls/hr CEFTRIAXONE/D5W 2 GM PREMIX (Rocephin 2 Gm/50 Ml D5w) 2 gm in 50 mls @ 75 mls/hr IV ONCE ONE Stop: 03/09/23 22:39 Last Admin: 03/09/23 21:59 Dose: Not Given Metronidazole (Flagyl 500 Mg/100 Ml) 500 mg in 100 mls @ 100 mls/hr IV ONCE ONE Stop: 03/09/23 23:56 Last Admin: 03/09/23 23:15 Dose: 100 mls/hr Sodium Chloride (Sodium Chloride) 1,000 mls @ 1,000 mls/hr IV BOLUS STA Stop: 03/10/23 00:57 Last Admin: 03/10/23 00:08 Dose: 1,000 mls/hr Review of Systems Constitutional: Reports No symptoms Head: Reports Normocephalic Eyes: Reports No symptoms Ears: Reports No symptoms Nose: Reports No symptoms Mouth: Reports No symptoms Throat: Reports No symptoms Cardiovascular: Reports No symptoms Respiratory: Reports Cough and Shortness of air Gastrointestinal: Reports No symptoms Genitourinary: Reports No Symptoms Musculoskeletal: Reports No symptoms Endocrine: Reports No symptoms Hematology: Reports No symptoms Immunology: Reports No symptoms Neurological: Reports No symptoms Psychiatric: Reports No symptoms Physical examination Most Recent Vital Signs: Most Recent Vital Signs Temperature 97.9 F 03/10/23 08:01 Temperature Source Oral 03/10/23 08:01 Temperature Source Oral 03/09/23 19:23 Pulse Rate 89 03/10/23 10:00 Respiratory Rate 18 03/10/23 10:00 Blood Pressure 121/58 L 03/10/23 07:50 Blood Pressure Right Arm 100/60 03/10/23 08:01 Blood Pressure Position Supine 03/10/23 08:01 O2 Sat by Pulse Oximetry 99 03/10/23 10:00 Oxygen Delivery Method Nasal Cannula 03/10/23 10:00 Oxygen Flow Rate 3 03/10/23 10:00 Height 5 ft 8 in 03/10/23 08:01 Weight 317 lb 6 oz 03/10/23 08:01 Telemetry Type Remote Telemetry 03/10/23 08:43 Telemetry Monitoring Started 03/10/23 08:43 Telemetry Heart Rate 89 03/10/23 08:43 Telemetry SPO2 98 03/10/23 08:43 EKG NH Interval 0.20 03/10/23 08:43 EKG QRS Interval 0.08 03/10/23 08:43 Telemetry Strip Reading sr 03/10/23 08:43 Appearance: Positive No Apparent Distress, Alert and Oriented x3, Ill-Appearing and Obese Skin: Positive Warm and Good Color HEENT: Positive Normocephalic and PERRLA Neck: Positive Supple and Midline Trachea Chest/Lungs: Positive Symmetrical With Equal Breath Sounds, Clear to Auscultation Bilaterally and Good Air Movement all 4 Lung [place] Heart: Positive RRR and Pulses Normal GI/: Positive Soft, Nontender, Bowel Sounds Normal, No Distention and No Organomegaly Musculoskeletal: Positive Not Examined Extremities: Positive Intact Peripheral Pulses, Stable Joints Without Laxity and Good ROM in All Joints Neurological: Positive Sensation Intact, Motor intact, Reflexes Intact, Alert, Oriented and Muscle Strength 5/5 in Upper and Lower Extremities Bilaterally Psychiatric: Positive Oriented x4 and Appropriate Mood; Negative Appropriate Affect (flat affect) Labs This Visit Labs This Visit: Labs This Visit 03/09/23 03/09/23 03/09/23 20:00 20:10 20:50 WBC 13.49 H RBC 3.57 L Hgb 10.0 L Hct 32.3 L MCV 90.5 MCH 28.0 MCHC 31.0 L RDW Coeff of [place] 14.9 H Plt Count 335 Neutrophils % (Manual) 61.0 Band Neutrophils % 6.0 H Lymphocytes % (Manual) 24.0 Monocytes % (Manual) 3.0 Eosinophils % (Manual) 0.0 Basophils % (Manual) 0.0 Metamyelocytes % 4.0 H Myelocytes % 2.0 H Platelet Estimate 330 Anisocytosis Not present VBG pH 7.41 H VBG pCO2 50 VBG pO2 93 H VBG HCO3 31.7 H VBG O2 Saturation 97.3 H Sodium 136.1 Potassium 3.64 Chloride 100.8 Carbon Dioxide 29.9 Anion Gap 9.04 BUN 18.8 H Creatinine 0.92 Estimated GFR (MDRD) 65.00 BUN/Creatinine Ratio 20.43 Glucose 116.3 H Lactic Acid 1.16 Calcium 8.54 Total Bilirubin 0.18 L AST 29.3 ALT 24.5 Alkaline Phosphatase 65.0 Troponin I < 0.012 Total Protein 7.22 Albumin 3.84 Globulin 3.38 Albumin/Globulin Ratio 1.13 Free T4 0.87 D-Dimer 739.89 H Urine Color Yellow Urine Clarity Clear Urine pH 5.5 Ur Specific [place] >=1.030 Urine Protein Trace H Urine Glucose (UA) Negative Urine Ketones Negative Urine Blood Trace-intact H Urine Nitrite Negative Urine Bilirubin Negative Urine Urobilinogen 0.2 Ur Leukocyte Esterase 1+ H Urine Microscopic RBC 2-5 Urine Microscopic WBC 10-20 Ur Squamous Epith Cells 2-5 Urine Bacteria 1+ Salicylate Level mg/dL < 1.00 Urine Opiates Screen Negative Ur Oxycodone Screen Negative Urine Methadone Screen Negative Ur Propoxyphene Screen Negative Acetaminophen < 10.0 L Ur Barbiturates Screen Negative U Tricyclic Antidepress Negative Ur Phencyclidine Scrn Negative Ur Amphetamine Screen Positive H U Methamphetamines Scrn Negative U Benzodiazepines Scrn Positive H Urine Cocaine Screen Negative U Cannabinoids Screen Positive H Plasma/Serum Alcohol < 10.0 Influ A Molecular Assay Influ B Molecular Assay RSV Antigen SARS CoV-2 RNA Rapid [place] 03/09/23 23:05 WBC RBC Hgb Hct MCV MCH MCHC RDW Coeff of [place] Plt Count Neutrophils % (Manual) Band Neutrophils % Lymphocytes % (Manual) Monocytes % (Manual) Eosinophils % (Manual) Basophils % (Manual) Metamyelocytes % Myelocytes % Platelet Estimate Anisocytosis VBG pH VBG pCO2 VBG pO2 VBG HCO3 VBG O2 Saturation Sodium Potassium Chloride Carbon Dioxide Anion Gap BUN Creatinine Estimated GFR (MDRD) BUN/Creatinine Ratio Glucose Lactic Acid Calcium Total Bilirubin AST ALT Alkaline Phosphatase Troponin I Total Protein Albumin Globulin Albumin/Globulin Ratio Free T4 D-Dimer Urine Color Urine Clarity Urine pH Ur Specific [place] Urine Protein Urine Glucose (UA) Urine Ketones Urine Blood Urine Nitrite Urine Bilirubin Urine Urobilinogen Ur Leukocyte Esterase Urine Microscopic RBC Urine Microscopic WBC Ur Squamous Epith Cells Urine Bacteria Salicylate Level mg/dL Urine Opiates Screen Ur Oxycodone Screen Urine Methadone Screen Ur Propoxyphene Screen Acetaminophen Ur Barbiturates Screen U Tricyclic Antidepress Ur Phencyclidine Scrn Ur Amphetamine Screen U Methamphetamines Scrn U Benzodiazepines Scrn Urine Cocaine Screen U Cannabinoids Screen Plasma/Serum Alcohol Influ A Molecular Assay Negative by naat Influ B Molecular Assay Negative by naat RSV Antigen Negative by naat SARS CoV-2 RNA Rapid CHIQUI Negative Microbiology This Visit 03/09/23 20:50 Urine,Clean Catch Urine Culture - Final Imaging Imaging: EXAM: CHEST RADIOGRAPH (2 VIEW) IMPRESSION: No acute radiographic abnormality. EXAM: AP CHEST Impression: Minimal left basilar subsegmental atelectasis. Cardiomegaly. EXAM: CT PULMONARY ANGIOGRAM FINDINGS: There is normal enhancement of the pulmonary arteries with no evidence of pulmonary embolism. The heart is enlarged. The thoracic aorta is within normal limits in size. The mediastinum is normal in appearance. There are bilateral ground-glass opacities and minimal bibasilar consolidation, consistent with pneumonia. There are degenerative changes in the spine. No acute findings in the visualized portion of the abdomen. Impression: No evidence of pulmonary embolism. Bilateral pneumonia as described. Cardiomegaly. Review Statement Review Statement: I have independently reviewed and interpreted the labs/EKGs/imaging that were ordered by the ER provider. I have reviewed all outside records that are available currently in our EMR including imaging/notes/labs from previous visits. Plan Plan: 1. Acute Hypoxic Respiratory Failure in the setting of Bilateral CAP and prescription drug abuse - wean off O2 as tolerated, steroids, nebs, azith and rocephin, holding prescriptions attributing to lethargy, telemetry 2. CAP - see #1, will culture sputum if begins producing 3. Chronic prescription drug abuse - holding all medications attributing to lethargy, will give flumazenil for benzo overdose if respiratory status joselyn nues to decline, monitor 4. Hypertension - chronic, hypotensive at this time, holding home medications 5. Hyperlipidemia - chronic, continue home medications 6. Hypothyroidism - chronic, continue home medications 7. Anxiety/Depression - no SI/HI, continue home medications except clonazepam DVT Prophylaxis: Up ad massiel Time Spent: Greater than 80 minutes spent with patient, 50% of the time spent wi th this patient was devoted to counseling and coordination of care. Advanced Care Plannin minutes spent discussing advance care planning. Disposition: Admit to: Med/surg Observation Full Code Discussed Plan of Care with Dr. Lee Potter. Medications Medication Orders: Medications Ordered Category Date Time Status Acetaminophen [Tylenol] Meds 03/10/23 08:29 Active 650 mg PO Q4H PRN Albuterol Sulfate 0.083% Neb [Albuterol 0.083% Neb] Meds 03/10/23 08:31 Active 2.5 mg NEB RTQ4H PRN Azithromycin Inj [Zithromax] 500 mg Meds 03/10/23 09:00 Active 0.9 % Sodium Chloride [Sodium Chloride] 250 ml IV DAILY Ceftriaxone/D5w 1 gm Premix [Rocephin 1 gm/50 ml D5w] Meds 03/10/23 09:00 Active 1 gm in 50 ml IV DAILY Fluoxetine HCl [Prozac] Meds 03/10/23 11:30 Ordered 20 mg PO DAILY Ipratropium/Albuterol Neb [Duoneb] Meds 03/10/23 10:00 Active 3 ml NEB RTQ4H Levothyroxine Sodium [Synthroid] Meds 03/10/23 11:30 Ordered 112 mcg PO DAILY Methylprednisolone Sod Succ/Pf [Solu-Medrol 125 mg] Meds 03/10/23 09:00 Active 40 mg IVP Q8HR
[2023-03-10] MEDS: PROZAC PO SCH (11:33)
[2023-03-10] MEDS: SYNTHROID PO SCH (11:33)
[2023-03-10] MEDS: HUMULIN R SUBCUT PRN ×2 (17:42→21:36)
[2023-03-11] MEDS: DUONEB NEB SCH ×3 (01:09→10:20)
[2023-03-11 05:20] LABS: HEMATOCRIT 32.5 % (37.0-47.0); HEMOGLOBIN 10.4 g/dl (12.0-16.0); MEAN CORPUSCULAR HEMOGLOBIN 28.7 pg (27.0-31.0); MEAN CORPUSCULAR VOLUME 89.8 fl (81.0-99.0); PLATELET COUNT 322 10^3/uL (140-440); RDW COEFFICIENT OF VARIATION 14.6 % (11.6-14.8); RED BLOOD COUNT 3.62 10^6/ul (4.20-5.40); WHITE BLOOD COUNT 26.23 K/ul (4.6-10.2)
[2023-03-11] MEDS: SOLU-MEDROL 125 MG IVP SCH (05:28)
[2023-03-11] MEDS: SYNTHROID PO SCH (05:30)
[2023-03-11 05:39] LABS: ALANINE AMINOTRANSFERASE 25.2 U/L (0-35); ALBUMIN 3.92 g/dL (3.5-5.0); ALKALINE PHOSPHATASE 65.8 U/L (38-126); ASPARTATE AMINO TRANSFERASE 26.7 U/L (14-36); BILIRUBIN,TOTAL 0.19 mg/dL (0.2-1.3); BLOOD UREA NITROGEN 14.3 mg/dL (7-17); CALCIUM 8.88 mg/dL (8.4-10.2); CARBON DIOXIDE 31.2 mmol/L (22-30.0); CHLORIDE 100.6 mmol/L (98-107); CREATININE 0.63 mg/dL (0.60-1.30); GLUCOSE 196.2 mg/dL (74-106); POTASSIUM 3.73 mmol/L (3.5-5.1); SODIUM 135.5 mmol/L (134.5-145); TOTAL PROTEIN 7.38 g/dL (6.3-8.2)
[2023-03-11 06:07] LABS: ANISOCYTOSIS NOT PRESENT (NOT PRESENT)
[2023-03-11] MEDS: HUMULIN R SUBCUT PRN ×2 (06:30→11:22)
[2023-03-11] MEDS: PROZAC PO SCH (08:22)
[2023-03-11] MEDS: ROCEPHIN 1 GM/50 ML D5W 1 GM/50 ML BAG IV SCH (08:40)
[2023-03-11] MEDS: ZITHROMAX 500 MG in SODIUM CHLORIDE 250 ML IV SCH (09:42)
[2023-03-11 10:04] VITALS: BP 154/91; PULSE 95; RESP 22; TEMP 97.9
[2023-03-11] MEDS ORDERED: COREG PO SCH (10:20)
--- NOTE | 2023-03-11 14:01 | DCSUM ---
Admission Date Admission Date: 03/10/23 Discharge Date Discharge Date: 03/11/23 Admission Diagnosis Admission Diagnosis: 1. Acute hypoxic respiratory failure in setting of bilateral CAP and prescription drug abuse 2. CAP 3. Chronic prescription drug abuse Discharge Diagnosis Discharge Diagnosis: 1. Acute Hypoxic Respiratory Failure in the setting of Bilateral CAP and prescription drug abuse, improved 2. Bilateral CAP, improved 3. Aberrant drug behavior 4. Hypertension - chronic, stable 5. Hyperlipidemia - chronic, stable 6. Hypothyroidism - chronic, stable 7. Anxiety/Depression - chronic Hospital Provider Hospital Provider: ARNOLDO PORTER PA-C, [facility] Primary Care Physician Primary Care Physician: ANIYAH NATION MD Summary of History and Physical Summary of History and Physical: 52 yo female presented to the ER last night with complaints of shortness of breath. Patient states that last night before bed she took 2 snooze berries to help her sleep that contain marijuana. After taking that, she reports that she was unable to breathe well. She was recently admitted 1 week ago for a benzodiazepine overdose and required treatment with flumazenil while she was here due to decline in respiratory status. She was then discharged home. This admission she was found to have bilateral pneumonia on CT scan and was hypoxic in the 80s on arrival to the ER. She was placed on 2L and tolerated well bringing her sat up to 96%. Upon my exam, she is alert, and oriented x 4. Answering all questions appropr iately. Requesting food and drink constantly. Denies any fever at home, chills, body aches, chest pain, N/V/D. Does report nonproductive cough that is new. Hospital Course Subjective: Patient was treated with Rocephin and azithromycin. She was also started on Solu-Medrol. She was weaned down on oxygen to 1 L. However she becomes hypoxic with ambulating down to 87%. On 724 she states she is feeling much better and she would like to be discharged. She states that she is going to [place] tomorrow to ride a train and look for an apartment. She has already booked an air BMB and the train ticket and would like to go home today. She did qualify for home oxygen this day. That was set up prior to discharge. Her white blood cell count is elevated but likely due to steroid use. Pro-Beto is undetectable. Blood cultures negative so far. Will discharge home on cefpodoxime based on allergies and remainder of azithromycin. She was lethargic again upon admission and admits to drinking 2 margaritas, taking 2 snooze berries that contain marijuana, and taking her Klonopin. Discussed in length to avoid sedating medic ations and combining those with other substances such as alcohol or marijuana. Encouraged her to cut down on her Klonopin. She has not had it during this stay and advised her to try 0.5 mg twice daily and then follow-up with PCP or psychiatry to continue tapering. Discussed with her that these medications should be used as a rescue medication not a daily scheduled medication. Appearance: Pleasant, No Apparent Distress and Alert HEENT: MMM and Supple CVS: No Murmur, No Rubs and No Gallop Abdomen: Soft, Non-Tender and No Distention Respiratory: No Accessory Muscle Use Extremities: No Edema Vital Signs: Most Recent Vital Signs Temperature 97.9 F 03/11/23 10:00 Temperature Source Oral 03/11/23 10:00 Temperature Source Oral 03/09/23 19:23 Pulse Rate 95 03/11/23 10:00 Respiratory Rate 22 H 03/11/23 10:00 Blood Pressure 154/91 H 03/11/23 10:00 Blood Pressure Mean 112 03/11/23 10:00 Blood Pressure Right Arm 100/60 03/10/23 08:01 Blood Pressure Location Right Arm 03/11/23 10:00 Blood Pressure Position Sitting 03/11/23 10:00 O2 Sat by Pulse Oximetry 93 L 03/11/23 10:00 Oxygen Delivery Method Room Air 03/11/23 10:00 Oxygen Flow Rate 2 03/11/23 08:00 Height 5 ft 8 in 03/10/23 08:01 Weight 317 lb 6 oz 03/10/23 08:01 Telemetry Type Remote Telemetry 03/11/23 13:00 Telemetry Monitoring Continues 03/11/23 13:00 Telemetry Heart Rate 93 03/11/23 13:00 Telemetry SPO2 90 L 03/11/23 13:00 EKG FL Interval 0.17 03/11/23 13:00 EKG QRS Interval 0.09 03/11/23 13:00 Telemetry Strip Reading NSR 03/11/23 13:00 Imaging: EXAM: CHEST RADIOGRAPH (2 VIEW) IMPRESSION: No acute radiographic abnormality. EXAM: AP CHEST Impression: Minimal left basilar subsegmental atelectasis. Cardiomegaly. EXAM: CT PULMONARY ANGIOGRAM FINDINGS: There is normal enhancement of the pulmonary arteries with no evidence of pulmonary embolism. The heart is enlarged. The thoracic aorta is within normal limits in size. The mediastinum is normal in appearance. There are bilateral ground-glass opacities and minimal bibasilar consolidation, consistent with pneumonia. There are degenerative changes in the spine. No acute findings in the visualized portion of the abdomen. Impression: No evidence of pulmonary embolism. Bilateral pneumonia as described. Cardiomegaly. Lab Results Last 24 Hours: 03/11/23 05:13 WBC 26.23 H D RBC 3.62 L Hgb 10.4 L Hct 32.5 L MCV 89.8 MCH 28.7 MCHC 32.0 RDW Coeff of [place] 14.6 Plt Count 322 Neutrophils % (Manual) 88.0 H Lymphocytes % (Manual) 9.0 L Monocytes % (Manual) 3.0 Anisocytosis Not present Sodium 135.5 Potassium 3.73 Chloride 100.6 Carbon Dioxide 31.2 H Anion Gap 7.43 BUN 14.3 Creatinine 0.63 Estimated GFR (MDRD) 100.00 BUN/Creatinine Ratio 22.69 Glucose 196.2 H Calcium 8.88 Total Bilirubin 0.19 L AST 26.7 ALT 25.2 Alkaline Phosphatase 65.8 Total Protein 7.38 Albumin 3.92 Globulin 3.46 Albumin/Globulin Ratio 1.13 Procalcitonin < 0.05 Discharge Instructions Discharge Planning: Discharge Planning > [address] Jenn Potter. Discharge Medications: Medications at Discharge (Home Meds & RX) levothyroxine 112 mcg tablet (Synthroid) 112 mcg PO DAILY 30 days #30 tabs 10/02/22 blood-glucose meter (Blood Glucose Monitoring kit) #1 ea 12/05/22 losartan 100 mg tablet See Rx Instructions .Route .COMPLEX #90 tabs 01/10/23 carvedilol 25 mg tablet 25 mg PO BID 30 days #60 tabs 02/01/23 trazodone 100 mg tablet 100 mg PO BEDTIME PRN insomnia #14 tabs 02/24/23 gabapentin 100 mg capsule See Rx Instructions .Route .COMPLEX #90 caps 02/25/23 nystatin 100,000 unit/gram topical cream 1 applic topical TID 2 weeks #30 grams 03/01/23 ondansetron 4 mg disintegrating tablet 4 mg PO Q8H #21 tabs 03/01/23 fluoxetine 20 mg capsule (Prozac) 20 mg PO DAILY 03/02/23 dextroamphetamine-amphetamine 10 mg tablet (Adderall) 10 mg PO QDAY PRN "ADHD" 03/06/23 potassium chloride 20 mEq tablet,extended release 20 meq PO BID 7 days #14 tabs 03/07/23 metformin 500 mg tablet 500 mg PO DAILY 03/10/23 azithromycin 250 mg tablet 250 mg PO DAILY 3 days #3 tabs 03/11/23 cefpodoxime 200 mg tablet 200 mg PO BID 7 days #14 tabs 03/11/23 clonazepam 1 mg tablet 0.5 mg PO BID PRN anxiety #1 tab 03/11/23 Discharge Plan Discharge Discharge Orders: Discharge Patient (ONCE); Ordered 03/11/23 Ordered By: ARNOLDO PORTER Activity Restrictions/Additional Instructions: DISCHARGE TO HOME DX: BILATERAL PNEUMONIA DIET: HEART HEALTHY, LOW CARB ACTIVITY: TOLERATED, WEAR OXYGEN DIRECTED F/U WITH PCP PHARMACY: [facility] YOU HAVE QUALIFIED FOR HOME OXYGEN USE. A REFERRAL WAS SENT TO [facility] FOR HOME AND PORTABILITY O2. YOU HAVE A FOLLOW UP APPOINTMENT WITH THE [facility] WITH DARINEL HILLMAN ON SATURDAY, February AT 1:30PM. SHOULD YOU HAVE ANY QUESTIONS OR NEED TO RESCHEDULE YOU CAN CONTACT THEIR OFFICE AT [phone]. Instructions: Pneumonia (GEN) Care Plan Goals: Problem: Impaired Respiratory Status Goal: Exhibit optimal respiratory function Instructions: Activities as tolerated Apply oxygen as ordered Elevate head of bed Notify MD of increased congestion Patient Disposition: HOME SELF-CARE Prescriptions: New azithromycin 250 mg tablet 250 mg PO DAILY 3 Days Qty: 3 0RF Rx Instructions: START 03/12 cefpodoxime 200 mg tablet 200 mg PO BID 7 Days Qty: 14 0RF Rx Instructions: must administer with a meal/food Continued levothyroxine [Synthroid] 112 mcg tablet 112 mcg PO DAILY 30 Days Qty: 30 2RF losartan 100 mg tablet See Rx Instructions .ROUTE .COMPLEX Qty: 90 1RF Dose Instruction: TAKE ONE TABLET DAILY Rx Instructions: TAKE ONE TABLET DAILY gabapentin 100 mg capsule See Rx Instructions .ROUTE .COMPLEX Qty: 90 0RF Dose Instruction: TAKE ONE CAPSULE THREE TIMES DAILY NEEDED FOR NERVE PAIN Rx Instructions: TAKE ONE CAPSULE THREE TIMES DAILY NEEDED FOR NERVE PAIN potassium chloride 20 mEq tablet extended release 20 meq PO BID 7 Days Qty: 14 0RF Rx Instructions: with meals nystatin 100,000 unit/gram cream 1 applic topical TID 14 Days Qty: 30 0RF ondansetron 4 mg tablet,disintegrating 4 mg PO Q8H Qty: 21 0RF trazodone 100 mg tablet 100 mg PO BEDTIME PRN (Reason: insomnia) Qty: 14 0RF fluoxetine [Prozac] 20 mg capsule 20 mg PO DAILY metformin 500 mg tablet 500 mg PO DAILY (DME) blood-glucose meter [Blood Glucose Monitoring] Kit See Rx Instructions .ROUTE Qty: 1 0RF Hold Instructions: Patient Refused Rx Instructions: As directed carvedilol 25 mg tablet 25 mg PO BID 30 Days Qty: 60 1RF dextroamphetamine-amphetamine [Adderall] 10 mg tablet 10 mg PO QDAY PRN (Reason: "ADHD") Changed clonazepam 1 mg tablet 0.5 mg PO BID PRN (Reason: anxiety) Qty: 1 0RF Discontinued ketorolac 10 mg tablet 10 mg PO Q6H PRN (Reason: pain) Did you review [place] [employer] for ALL controlled substances?: Yes Discussed opioids are addictive and Narcan is available by prescription or from pharmacy.: No Condition: Stable
== END 2023-03-11 14:25 | disposition home or self-care (01) ==
LOC: MEDSURG B 19:23 → ED 19:23 → MEDSURG B 03-10 08:13
PROVIDERS: ADMIT Hospitalist; ATTEND Physician Assistant

== ENCOUNTER 2025-05-16 04:08 | Observation (INO) ==
--- NOTE | 2025-05-16 05:30 | ED.PDOC ---
General <KYLAH PÉREZ MD - Last Filed: 05/16/25 07:33> [facility] ED Provider: Dr. KYLAH PÉREZ MD Chief Complaint: Wound Check Stated Complaint: 54 yo WF seen about a week ago(twice)for skin lesions on her finger and wrist area and placed on topical and later PO doxycycline. She now have a similar lesion on the R hip/groin area. No fever or new medication. Thinks it may be a spider or insect sting. She reports she is allergic to bee sting, but doesn't recall of any painful sting or bite. Hx of bipolar, HTN. Time Seen by Provider: 05/16/25 04:40 Mode of Arrival: Walk-In Information Source: Patient Exam Limitations: No limitations Primary Care Provider: ANA MENDIETA Referred to ED by: Other (self) Nursing and Triage Documentation Reviewed and Agree: Yes Opioid Naive vs. Tolerant Does Patient Take Opioids?: No What is Opioid Naive?: *Opioid Naive implies the patient is not already taking opioids or not chronically receiving opioids on a daily basis. *PRN dosing is not "usually" associated with tolerance. *Patients are at higher risk of over-sedation and aspiration. What is Opioid Tolerant?: *Opioid Tolerance implies less than the expected response to an opioid. *Acquired tolerance is defined by the patient taking 60mg of oral morphine daily (or equianalgesic dose of another opioid) for 1 week or more. *Often associated with chronic pain. *May take more than usual dose to achieve desired pain control. Review of Systems <KYLAH PÉREZ MD - Last Filed: 05/16/25 07:33> Review Of Systems Constitutional: Denies Chills or Fever Eyes: Reports No symptoms Ears, Nose, Mouth, Throat: Reports No symptoms Respiratory: Reports No symptoms Cardiac: Reports No symptoms GI: Denies Abdominal pain or Vomiting Skin: Reports Lesions and Rash Neurological: Reports No symptoms PFSH <KYLAH PÉREZ MD - Last Filed: 05/16/25 07:33> [facility] Medical History Flu-like symptoms R68.89 - Other general symptoms and signs (ICD-10) COVID U07.1 - COVID-19 (ICD-10) COVID-19 U07.1 - COVID-19 (ICD-10) COVID-19 U07.1 - COVID-19 (ICD-10) Increased BMI (03/01/16) R63.8 - Other symptoms and signs concerning food and fluid intake (ICD-10) Type 2 diabetes mellitus with hemoglobin A1c goal of less than 7.0% E11.9 - Type 2 diabetes mellitus without complications (ICD-10) PTSD (post-traumatic stress disorder) F43.10 - Post-traumatic stress disorder, unspecified (ICD-10) ADHD, predominantly inattentive type F90.0 - Attention-deficit hyperactivity disorder, predominantly inattentive type (ICD-10) Generalized anxiety disorder F41.1 - Generalized anxiety disorder (ICD-10) DVT (deep venous thrombosis) I82.409 - Acute embolism and thrombosis of unspecified deep veins of unspecified lower extremity (ICD-10) Hypertension I10 - Essential (primary) hypertension (ICD-10) Tear meniscus knee S83.209A - Unspecified tear of unspecified meniscus, current injury, unspecified knee, initial encounter (ICD-10) Hypothyroidism recheck tsh level 8 weeks E03.9 - Hypothyroidism, unspecified (ICD-10) Heart disease I51.9 - Heart disease, unspecified (ICD-10) High cholesterol E78.00 - Pure hypercholesterolemia, unspecified (ICD-10) Family History Mother Breast cancer Hypertension FATHER Hypertension Myocardial infarct Social History Smoking and tobacco status: Never smoker Alcohol intake: current Alcohol intake frequency: a few times a week Alcohol type: hard liquor Substance use type: does not use and marijuana Counseling given: No Candace/taoist: EPISCOPAL Special candace needs: No Agree to transfusion: Yes Adopted: No Caregiver/support person: Yes Household members: none Housing: apartment Marital status: D Lives independently: Yes Number of children: 2 Number of grandchildren: 0 Highest education level completed: Bachelor's degree Financial difficulty paying for basics: very hard service: No Current occupational status: employed 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 Pets and animals: Yes Leisure activites: art History of recent travel: No Sexually active: No Do you think of yourself as: straight/heterosexual Current gender identity: female Seatbelt use: always Drives intoxicated or rides with intoxicated local company intermodal truck driver: No Water heater temperature set < 120 degrees: Yes Working smoke detector in home: Yes Fire extinguisher in home: No Carbon monoxide detector in home: No Firearms in home: No Surgical History History of tubal ligation Z98.51 - Tubal ligation status (ICD-10) Status post cholecystectomy Z90.49 - Acquired absence of other specified parts of digestive tract (ICD- 10) History of section Z98.891 - History of uterine scar from previous surgery (ICD-10) History of arthroscopy right knee 2017 left knee 2014 Z98.890 - Other specified postprocedural states (ICD-10) Status post appendectomy Z90.49 - Acquired absence of other specified parts of digestive tract (ICD- 10) Female Reproductive History Menstrual Hx Hysterectomy: No Hx Tubal Ligation: No Physical Exam <KYLAH PÉREZ MD - Last Filed: 05/16/25 07:33> Physical Exam Appearance: Reports Well-appearing and Obese Ill-appearing: None Pain Distress: None Eyes: Reports EOMI ENT: Reports Ears normal Neck: Supple Respiratory: Reports Airway patent, Breath sounds clear and Respirations nonlabored Cardiovascular: Reports RRR, Pulses normal and No rub GI/: Reports Soft and Bowel sounds normal; Denies Tender Musculoskeletal: Reports Normal strength and ROM intact Skin: Reports Warm, Dry and Other (3 lesions on L wrist and L finger and R groin area with erythematous base, flaccid bullae on the L wrist and R groin area. Bulla on the digit has ruptures. No abscess. Some mild STS at base of the involved digit. ) Neurological: Reports Sensation intact and Motor intact Psychiatric: Reports Affect appropriate and Mood appropriate <SHAUN SILVA MD - Last Filed: 05/17/25 03:07> Physician Progress Note Physician Progress Note: Patient is a 54-year-old female presenting to the emergency department for evaluation of blisters on the left hand. Physical examination was most consistent with ruptured bullae that are possibly secondary to staph infection. She statically has failed outpatient antibiotics with clindamycin and we therefore plan on having the patient admitted for treatment with IV vancomycin. There were no findings on physical exam that would be consistent with a necrotizing fasciitis and therefore do not believe that any CT imaging is indicated at this time. Furthermore the patient has not had any systemic infectious symptoms and there was no reproducible tenderness to palpation on exam. Course <KYLAH PÉREZ MD - Last Filed: 05/16/25 07:33> Course 05/16/25 05:28 05/16/25 08:57 Orders, Labs, Meds: Lab Review 05/16/25 05/16/25 05:28 08:57 WBC 9.93 RBC 4.02 L Hgb 12.2 Hct 38.0 MCV 94.5 MCH 30.3 MCHC 32.1 RDW Coeff of [place] 13.4 Plt Count 285 Immature Gran % (Auto) 0.4 Neut % (Auto) 48.0 Lymph % (Auto) 39.7 [place] % (Auto) 6.1 Eos % (Auto) 4.8 Baso % (Auto) 1.0 Neut # (Auto) 4.8 Lymph # (Auto) 3.9 H [place] # (Auto) 0.6 Eos # (Auto) 0.5 Baso # (Auto) 0.1 Immature Gran # (Auto) 0.0 Sodium 137.3 Potassium 4.43 Chloride 103.7 Carbon Dioxide 28.9 Anion Gap 9.13 BUN 12.2 Creatinine 0.54 L Estimated GFR (MDRD) 119.00 BUN/Creatinine Ratio 22.59 Glucose 99.6 Calcium 9.20 Total Bilirubin 0.33 AST 57.6 H ALT 24.0 Alkaline Phosphatase 57.1 Total Protein 6.91 Albumin 3.95 Globulin 2.96 Albumin/Globulin Ratio 1.33 Orders Category Date Time Status Saline Lock [ED IV/MEDIPORT/POWERPORT] .ONCE EMERGENCY 05/16/25 05:07 Active CBC W/ AUTO DIFF Stat LAB 05/16/25 05:28 Completed CMP [COMPREHENSIVE METABOLIC PANEL] Stat LAB 05/16/25 08:57 Completed WOUND CULTURE Stat LAB 05/16/25 05:16 Results 0.9 % Sodium Chloride [Saline Flush] Meds 05/16/25 05:07 Active 1 syr IVF PRN PRN Vancomycin/Water For Inj (Peg) [Vancomycin 1.5 Gram/300 Meds 05/16/25 05:19 Discontinued ml Premix] 1.5 gm in 300 ml IV ONCE Medications Generic Name Dose Route Start Last Admin Trade Name Freq PRN Reason Stop Dose Admin Acetaminophen 650 mg 05/16/25 09:36 05/17/25 01:39 Acetaminophen 325 Mg Tablet PO 650 mg Q4H PRN Administration Mild Pain Cefazolin Sodium/Dextrose 2 gm in 50 mls @ 75 mls/hr 05/16/25 13:00 05/16/25 21:55 Ancef 2 Gm/50 Ml Premix IV 05/19/25 12:59 75 mls/hr Q8HR DILLON Administration VANCOMYCIN/WATER FOR INJ (PEG) 1.5 gm in 300 mls @ 200 mls/hr 05/16/25 13:00 05/16/25 20:08 Vancomycin 1.5 Gram/300 Ml Premix IV 05/19/25 12:59 200 mls/hr Q8HR DILLON Administration Insulin Human Regular 0 unit 05/16/25 09:38 Insulin Regular, Human 100 Unit/Ml (10ml) Vial SUBCUT PRN PRN Hyperglycemia Protocol Levothyroxine Sodium 112 mcg 05/17/25 06:00 Levothyroxine Sodium 112 Mcg Tablet PO QDAC2 DILLON Losartan Potassium 100 mg 05/16/25 10:30 05/16/25 10:30 Losartan Potassium 100 Mg Tablet PO Not Given DAILY DILLON Melatonin 9 mg 05/16/25 19:18 05/16/25 20:07 Melatonin 3 Mg Tablet PO 9 mg BEDTIME PRN Administration Insomnia Metoprolol Succinate 50 mg 05/16/25 21:00 05/16/25 20:07 Metoprolol Succinate 50 Mg Tab.Er.24h PO 50 mg BEDTIME DILLON Administration Non-Formulary Medication 15 mg 05/16/25 10:15 05/16/25 10:30 Dextroamphetamine-Amphetamine [Adderall Xr] PO Not Given DAILY DILLON Non-Formulary Medication 1 each 05/16/25 10:30 05/16/25 13:18 Non-Formulary Medication 1 Each PO 1 each Q12H PRN Administration Anxiety Sodium Chloride 1 syr 05/16/25 05:07 0.9% Sodium Chloride 10 Ml Disp.Syrin IVF PRN PRN To flush IV Discontinued Medications Generic Name Dose Route Start Last Admin Trade Name Freq PRN Reason Stop Dose Admin Clonazepam 2 mg 05/16/25 10:10 Clonazepam 0.5 Mg Tablet PO Q12H PRN Anxiety Diphenhydramine HCl 50 mg 05/16/25 19:18 05/16/25 19:37 Diphenhydramine Hcl 25 Mg Capsule PO 05/16/25 19:19 50 mg ONCE ONE Administration VANCOMYCIN/WATER FOR INJ (PEG) 1.5 gm in 300 mls @ 200 mls/hr 05/16/25 05:19 05/16/25 05:52 Vancomycin 1.5 Gram/300 Ml Premix IV 05/16/25 06:48 200 mls/hr ONCE ONE Administration Losartan Potassium 100 mg 05/16/25 10:15 05/16/25 11:40 Losartan Potassium 100 Mg Tablet PO Not Given DAILY DILLON Non-Formulary Medication 1 each 05/16/25 09:36 05/16/25 12:01 Pharm Consult:Vanco Iv Maintenance Dosing IV 05/16/25 09:37 Not Given ONCE ONE Vital Signs: Temp Pulse Resp BP Pulse Ox 05/16/25 04:45 140/91 H 05/16/25 04:12 97.7 F 79 20 229/134 H 97 Concerned for Staph SSS and IV vancomycin given. WBC noted. Considering admission and hospitalist called. She will stop by the ER and see the patient. <SHAUN SILVA MD - Last Filed: 05/17/25 03:07> Course Orders, Labs, Meds: Lab Review 05/16/25 05/16/25 05:28 08:57 WBC 9.93 RBC 4.02 L Hgb 12.2 Hct 38.0 MCV 94.5 MCH 30.3 MCHC 32.1 RDW Coeff of [place] 13.4 Plt Count 285 Immature Gran % (Auto) 0.4 Neut % (Auto) 48.0 Lymph % (Auto) 39.7 [place] % (Auto) 6.1 Eos % (Auto) 4.8 Baso % (Auto) 1.0 Neut # (Auto) 4.8 Lymph # (Auto) 3.9 H [place] # (Auto) 0.6 Eos # (Auto) 0.5 Baso # (Auto) 0.1 Immature Gran # (Auto) 0.0 Sodium 137.3 Potassium 4.43 Chloride 103.7 Carbon Dioxide 28.9 Anion Gap 9.13 BUN 12.2 Creatinine 0.54 L Estimated GFR (MDRD) 119.00 BUN/Creatinine Ratio 22.59 Glucose 99.6 Calcium 9.20 Total Bilirubin 0.33 AST 57.6 H ALT 24.0 Alkaline Phosphatase 57.1 Total Protein 6.91 Albumin 3.95 Globulin 2.96 Albumin/Globulin Ratio 1.33 Orders Category Date Time Status Saline Lock [ED IV/MEDIPORT/POWERPORT] .ONCE EMERGENCY 05/16/25 05:07 Active CBC W/ AUTO DIFF Stat LAB 05/16/25 05:28 Completed CMP [COMPREHENSIVE METABOLIC PANEL] Stat LAB 05/16/25 08:57 Completed WOUND CULTURE Stat LAB 05/16/25 05:16 Results 0.9 % Sodium Chloride [Saline Flush] Meds 05/16/25 05:07 Active 1 syr IVF PRN PRN Vancomycin/Water For Inj (Peg) [Vancomycin 1.5 Gram/300 Meds 05/16/25 05:19 Discontinued ml Premix] 1.5 gm in 300 ml IV ONCE Medications Generic Name Dose Route Start Last Admin Trade Name Freq PRN Reason Stop Dose Admin Acetaminophen 650 mg 05/16/25 09:36 05/17/25 01:39 Acetaminophen 325 Mg Tablet PO 650 mg Q4H PRN Administration Mild Pain Cefazolin Sodium/Dextrose 2 gm in 50 mls @ 75 mls/hr 05/16/25 13:00 05/16/25 21:55 Ancef 2 Gm/50 Ml Premix IV 05/19/25 12:59 75 mls/hr Q8HR DILLON Administration VANCOMYCIN/WATER FOR INJ (PEG) 1.5 gm in 300 mls @ 200 mls/hr 05/16/25 13:00 05/16/25 20:08 Vancomycin 1.5 Gram/300 Ml Premix IV 05/19/25 12:59 200 mls/hr Q8HR DILLON Administration Insulin Human Regular 0 unit 05/16/25 09:38 Insulin Regular, Human 100 Unit/Ml (10ml) Vial SUBCUT PRN PRN Hyperglycemia Protocol Levothyroxine Sodium 112 mcg 05/17/25 06:00 Levothyroxine Sodium 112 Mcg Tablet PO QDAC2 DILLON Losartan Potassium 100 mg 05/16/25 10:30 05/16/25 10:30 Losartan Potassium 100 Mg Tablet PO Not Given DAILY DILLON Melatonin 9 mg 05/16/25 19:18 05/16/25 20:07 Melatonin 3 Mg Tablet PO 9 mg BEDTIME PRN Administration Insomnia Metoprolol Succinate 50 mg 05/16/25 21:00 05/16/25 20:07 Metoprolol Succinate 50 Mg Tab.Er.24h PO 50 mg BEDTIME DILLON Administration Non-Formulary Medication 15 mg 05/16/25 10:15 05/16/25 10:30 Dextroamphetamine-Amphetamine [Adderall Xr] PO Not Given DAILY DILLON Non-Formulary Medication 1 each 05/16/25 10:30 05/16/25 13:18 Non-Formulary Medication 1 Each PO 1 each Q12H PRN Administration Anxiety Sodium Chloride 1 syr 05/16/25 05:07 0.9% Sodium Chloride 10 Ml Disp.Syrin IVF PRN PRN To flush IV Discontinued Medications Generic Name Dose Route Start Last Admin Trade Name Freq PRN Reason Stop Dose Admin Clonazepam 2 mg 05/16/25 10:10 Clonazepam 0.5 Mg Tablet PO Q12H PRN Anxiety Diphenhydramine HCl 50 mg 05/16/25 19:18 05/16/25 19:37 Diphenhydramine Hcl 25 Mg Capsule PO 05/16/25 19:19 50 mg ONCE ONE Administration VANCOMYCIN/WATER FOR INJ (PEG) 1.5 gm in 300 mls @ 200 mls/hr 05/16/25 05:19 05/16/25 05:52 Vancomycin 1.5 Gram/300 Ml Premix IV 05/16/25 06:48 200 mls/hr ONCE ONE Administration Losartan Potassium 100 mg 05/16/25 10:15 05/16/25 11:40 Losartan Potassium 100 Mg Tablet PO Not Given DAILY DILLON Non-Formulary Medication 1 each 05/16/25 09:36 05/16/25 12:01 Pharm Consult:Vanco Iv Maintenance Dosing IV 05/16/25 09:37 Not Given ONCE ONE Vital Signs: Temp Pulse Resp BP Pulse Ox 05/16/25 04:45 140/91 H 05/16/25 04:12 97.7 F 79 20 229/134 H 97 Discharge Plan Discharge Patient Disposition: ADMITTED INPATIENT Discharge Problem: Cellulitis Did you review [place] [employer] for ALL controlled substances?: Yes ED Provider: KYLAH PÉREZ Condition: Stable
[2025-05-16 05:35] LABS: IMMATURE GRANULOCYTE # (AUTO) 0.0 (0.0-1.0); IMMATURE GRANULOCYTE % (AUTO) 0.4 % (0.0-5.0); RDW COEFFICIENT OF VARIATION 13.4 % (11.6-14.8)
[2025-05-16] MEDS: VANCOMYCIN 1.5 GRAM/300 ML PREMIX 1.5 GM/300 ML BAG IV ONE (05:52)
[2025-05-16 09:06] LABS: CREATININE 0.54 mg/dL (0.60-1.30)
[2025-05-16] MEDS ORDERED: HUMULIN R (10ML) SUBCUT PRN (09:38)
[2025-05-16 09:47] VITALS: BMI 43.6
[2025-05-16] MEDS ORDERED: KLONOPIN PO PRN (10:10)
--- NOTE | 2025-05-16 10:17 | PCM ---
Date of Service Date Seen by Provider: 05/16/25 Time Seen by Provider: 08:45 Admit Day/Time Admission Date: 05/16/25 Admission Time: 09:00 Reason for Admission Chief Complaint: CELLULITIS Hospital Provider Hospital Provider: JENSEN MENDOZA, [facility] Primary Care Physician Primary Care Physician: ANA MENDIETA History of Present Illness History of Present Illness: 54 yo female with pmh of htn, dm2, ADHD, obesity, and anxiety presented to the ER with complaints of blistering to her L third finger and L wrist. Started on 05/09 and was seen in the ER and sent home with Rx for clindamycin. She was seen again in the ER on 05/10 and started on doxycycline as well. Did not take the Doxycycline and has been taking the clindamycin. Blistering to L third finger is now open. Blister to wrist is still present with surrounding redness. States she did not burn herself that she can recall and has not been bit by any insects. Denies any fever, chills, or drainage from the areas. States she has been keeping them covered continuously. Case Discussed With Case Discussed With: Patient's case was discussed with the ER Physicians, Dr. De La Garza. [facility] Medical History Flu-like symptoms R68.89 - Other general symptoms and signs (ICD-10) COVID U07.1 - COVID-19 (ICD-10) COVID-19 U07.1 - COVID-19 (ICD-10) COVID-19 U07.1 - COVID-19 (ICD-10) Increased BMI (03/01/16) R63.8 - Other symptoms and signs concerning food and fluid intake (ICD-10) Type 2 diabetes mellitus with hemoglobin A1c goal of less than 7.0% E11.9 - Type 2 diabetes mellitus without complications (ICD-10) PTSD (post-traumatic stress disorder) F43.10 - Post-traumatic stress disorder, unspecified (ICD-10) ADHD, predominantly inattentive type F90.0 - Attention-deficit hyperactivity disorder, predominantly inattentive type (ICD-10) Generalized anxiety disorder F41.1 - Generalized anxiety disorder (ICD-10) DVT (deep venous thrombosis) I82.409 - Acute embolism and thrombosis of unspecified deep veins of unspecified lower extremity (ICD-10) Hypertension I10 - Essential (primary) hypertension (ICD-10) Tear meniscus knee S83.209A - Unspecified tear of unspecified meniscus, current injury, unspecified knee, initial encounter (ICD-10) Hypothyroidism recheck tsh level 8 weeks E03.9 - Hypothyroidism, unspecified (ICD-10) Heart disease I51.9 - Heart disease, unspecified (ICD-10) High cholesterol E78.00 - Pure hypercholesterolemia, unspecified (ICD-10) Surgical History History of tubal ligation Z98.51 - Tubal ligation status (ICD-10) Status post cholecystectomy Z90.49 - Acquired absence of other specified parts of digestive tract (ICD- 10) History of section Z98.891 - History of uterine scar from previous surgery (ICD-10) History of arthroscopy right knee 2017 left knee 2014 Z98.890 - Other specified postprocedural states (ICD-10) Status post appendectomy Z90.49 - Acquired absence of other specified parts of digestive tract (ICD- 10) Family History Mother Breast cancer Hypertension FATHER Hypertension Myocardial infarct Social History Smoking and tobacco status: Never smoker Alcohol intake: current Alcohol intake frequency: a few times a week Alcohol type: hard liquor Substance use type: does not use and marijuana Counseling given: No Candace/jainism: MANDAEN Special candace needs: No Agree to transfusion: Yes Adopted: No Caregiver/support person: Yes Household members: none Housing: apartment Marital status: D Lives independently: Yes Number of children: 2 Number of grandchildren: 0 Highest education level completed: Bachelor's degree Financial difficulty paying for basics: very hard service: No Current occupational status: employed 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 Pets and animals: Yes Leisure activites: art History of recent travel: No Sexually active: No Do you think of yourself as: straight/heterosexual Current gender identity: female Seatbelt use: always Drives intoxicated or rides with intoxicated short haul driver: No Water heater temperature set < 120 degrees: Yes Working smoke detector in home: Yes Fire extinguisher in home: No Carbon monoxide detector in home: No Firearms in home: No Allergies Allergies Allergy/AdvReac Type Severity Reaction Status Date / Time ciprofloxacin (From Cipro) AdvReac Intermediate Hives Verified 05/16/25 04:22 bee pollen AdvReac Swelling Verified 05/16/25 04:22 Penicillins AdvReac Swelling Verified 05/16/25 04:22 Current Medications Home Medications Acetaminophen (Acetaminophen 325 Mg Tablet) 650 mg PO Q4H PRN PRN Reason: Mild Pain Cefazolin Sodium/Dextrose (Ancef 2 Gm/50 Ml Premix) 2 gm in 50 mls @ 75 mls/hr IV Q8HR DILLON Stop: 05/19/25 12:59 VANCOMYCIN/WATER FOR INJ (PEG) (Vancomycin 1.5 Gram/300 Ml Premix) 1.5 gm in 300 mls @ 200 mls/hr IV Q8HR DILLON Stop: 05/19/25 12:59 Insulin Human Regular (Insulin Regular, Human 100 Unit/Ml (10ml) Vial) 0 unit SUBCUT PRN PRN; Protocol PRN Reason: Hyperglycemia Levothyroxine Sodium (Levothyroxine Sodium 112 Mcg Tablet) 112 mcg PO QDAC2 DILLON Losartan Potassium (Losartan Potassium 100 Mg Tablet) 100 mg PO DAILY DILLON Metoprolol Succinate (Metoprolol Succinate 50 Mg Tab.Er.24h) 50 mg PO BEDTIME DILLON Non-Formulary Medication (Dextroamphetamine-Amphetamine [Adderall Xr]) 15 mg PO DAILY DILLON Non-Formulary Medication (Non-Formulary Medication 1 Each) 1 each PO Q12H PRN PRN Reason: Anxiety Sodium Chloride (0.9% Sodium Chloride 10 Ml Disp.Syrin) 1 syr IVF PRN PRN PRN Reason: To flush IV levothyroxine 112 mcg tablet (Synthroid) 112 mcg PO DAILY 30 days #30 tabs 10/02/22 [Rx Confirmed 05/16/25] fluoxetine 20 mg capsule (Prozac) 40 mg PO DAILY 03/02/23 [History Confirmed 05/16/25] losartan 100 mg tablet 100 mg PO DAILY #30 tabs 03/05/24 [Rx Confirmed 05/16/25] bupropion HCl 150 mg 24 hr tablet, extended release 150 mg PO QAM 05/04/24 [History Confirmed 05/16/25] trazodone 50 mg tablet 50 mg PO BEDTIME 05/04/24 [History Confirmed 05/16/25] amlodipine 5 mg tablet 5 mg PO DAILY 12/27/24 [History Confirmed 05/16/25] carvedilol 25 mg tablet 25 mg PO BID #60 tabs 12/27/24 [Rx Confirmed 05/16/25] cetirizine 10 mg tablet (Allergy Relief (cetirizine)) 10 mg PO DAILY PRN allergy symptoms 12/27/24 [History Confirmed 05/16/25] clonazepam 2 mg tablet 2 mg PO Q12H PRN anxiety 12/27/24 [History Confirmed 05/16/25] duloxetine 30 mg capsule,delayed release 30 mg PO DAILY 02/15/25 [History Confirmed 05/16/25] hydrochlorothiazide 12.5 mg capsule 12.5 mg PO DAILY 02/15/25 [History Confirmed 05/16/25] tirzepatide (weight loss) 2.5 mg/0.5 mL subcutaneous pen injector (Zepbound) 2.5 mg subcut ONCE 02/15/25 [History Confirmed 05/16/25] loperamide 2 mg tablet 2 mg PO Q4H PRN loose stool #20 tabs 03/17/25 [Rx Confirmed 05/16/25] doxycycline hyclate 100 mg capsule 100 mg PO BID #20 caps 05/10/25 [Rx Confirmed 05/16/25] clindamycin HCl 300 mg capsule 300 mg PO Q8HR 05/16/25 [History Confirmed 05/16/25] dextroamphetamine-amphetamine ER 15 mg 24hr capsule,extend release (Adderall XR) 15 mg PO DAILY 05/16/25 [History Confirmed 05/16/25] hydroxyzine HCl 25 mg tablet 25 mg PO Q6H PRN anxiety 05/16/25 [History Confirmed 05/16/25] lurasidone 20 mg tablet 20 mg PO BEDTIME 05/16/25 [History Confirmed 05/16/25] metformin 500 mg tablet,extended release 24 hr 500 mg PO QPM 05/16/25 [History Confirmed 05/16/25] metoprolol succinate 50 mg tablet,extended release 24 hr 50 mg PO BEDTIME 05/16/25 [History Confirmed 05/16/25] Opioid Naive vs. Tolerant Does Patient Take Opioids?: No Is Patient Opioid Naive?: Yes What is Opioid Naive?: *Opioid Naive implies the patient is not already taking opioids or not chronically receiving opioids on a daily basis. *PRN dosing is not "usually" associated with tolerance. *Patients are at higher risk of over-sedation and aspiration. Is Patient Opioid Tolerant?: No What is Opioid Tolerant?: *Opioid Tolerance implies less than the expected response to an opioid. *Acquired tolerance is defined by the patient taking 60mg of oral morphine daily (or equianalgesic dose of another opioid) for 1 week or more. *Often associated with chronic pain. *May take more than usual dose to achieve desired pain control. Review of Systems Constitutional: Reports No symptoms; Denies Fever, Chills or Sweats Head: Reports Normocephalic Eyes: Reports No symptoms Ears: Reports No symptoms Nose: Reports No symptoms Mouth: Reports No symptoms Throat: Reports No symptoms Cardiovascular: Reports No symptoms Respiratory: Reports No symptoms Gastrointestinal: Reports No symptoms Genitourinary: Reports No Symptoms Musculoskeletal: Reports No symptoms Dermatologic: Reports Skin Changes (blister to third finger and wrist to the L hand, healed blister to R upper thigh) Endocrine: Reports No symptoms Hematology: Reports No symptoms Immunology: Reports No symptoms Neurological: Reports No symptoms Psychiatric: Reports No symptoms Physical examination Most Recent Vital Signs: Most Recent Vital Signs Temperature 96.3 F L 05/16/25 09:36 Temperature Source Temporal Artery Scan 05/16/25 09:36 Temperature Source Infrared 05/16/25 04:12 Pulse Rate 82 05/16/25 09:36 Respiratory Rate 16 05/16/25 09:36 Blood Pressure 136/85 05/16/25 09:36 Blood Pressure Mean 102 05/16/25 09:36 Blood Pressure Left Arm 136/85 05/16/25 09:35 Blood Pressure Location Left Arm 05/16/25 09:36 Blood Pressure Position Supine 05/16/25 09:36 O2 Sat by Pulse Oximetry 95 05/16/25 09:36 Oxygen Delivery Method Room Air 05/16/25 09:36 Height 5 ft 7 in 05/16/25 09:35 Weight 126.3 kg 05/16/25 09:35 Telemetry Heart Rate 93 03/11/23 13:00 Telemetry SPO2 90 L 03/11/23 13:00 Appearance: Positive No Apparent Distress, Alert and Oriented x3 and Obese Skin: Positive Warm, Good Turgor, [place] (to L wrist) and Other (open blistering to left 3rd finger, no obvious drainage, redness, mild swelling, no induration; healing blister to R upper thigh near groin, no erythema or drainage) HEENT: Positive Normocephalic and PERRLA Neck: Positive Supple and Midline Trachea Chest/Lungs: Positive Symmetrical With Equal Breath Sounds, Clear to Auscultation Bilaterally and Good Air Movement all 4 Lung [place]; Negative Rales, Rhonci or Wheezes Heart: Positive RRR and Pulses Normal GI/: Positive Soft, Nontender, Bowel Sounds Normal and No Distention Musculoskeletal: Positive Normal Gait and Station Extremities: Positive Intact Peripheral Pulses, Stable Joints Without Laxity and Good ROM in All Joints; Negative Edema Neurological: Positive Sensation Intact, Motor intact, Reflexes Intact, Alert and Oriented Labs This Visit Labs This Visit: Labs This Visit 05/16/25 05/16/25 05:28 08:57 WBC 9.93 RBC 4.02 L Hgb 12.2 Hct 38.0 MCV 94.5 MCH 30.3 MCHC 32.1 RDW Coeff of [place] 13.4 Plt Count 285 Immature Gran % (Auto) 0.4 Neut % (Auto) 48.0 Lymph % (Auto) 39.7 [place] % (Auto) 6.1 Eos % (Auto) 4.8 Baso % (Auto) 1.0 Neut # (Auto) 4.8 Lymph # (Auto) 3.9 H [place] # (Auto) 0.6 Eos # (Auto) 0.5 Baso # (Auto) 0.1 Immature Gran # (Auto) 0.0 Sodium 137.3 Potassium 4.43 Chloride 103.7 Carbon Dioxide 28.9 Anion Gap 9.13 BUN 12.2 Creatinine 0.54 L Estimated GFR (MDRD) 119.00 BUN/Creatinine Ratio 22.59 Glucose 99.6 Calcium 9.20 Total Bilirubin 0.33 AST 57.6 H ALT 24.0 Alkaline Phosphatase 57.1 Total Protein 6.91 Albumin 3.95 Globulin 2.96 Albumin/Globulin Ratio 1.33 Microbiology This Visit 05/16/25 05:16 Finger - Left Middle Wound Culture - Preliminary Review Statement Review Statement: I have independently reviewed and interpreted the labs/EKGs/imaging that were ordered by the ER provider. I have reviewed all outside records that are available currently in our EMR including imaging/notes/labs from previous visits. Plan Plan: 1. Cellulitis with blistering to L third finger and L wrist - failed outpatient clinda and doxy; covering with vanc and ancef, MRSA ordered and pending, wound culture obtained to finger, unable to obtain to wrist at this time due to blister being closed - will culture if ruptures, leave areas open to air 2. HTN - chronic, continue home medications 3. ADHD - continue home medications 4. DM2 - holding metformin, ADA diet, accuchecks qid with ssi 5. Anxiety - chronic, continue home medications DVT Prophylaxis: Ambulation Time Spent: Greater than 80 minutes spent with patient, 50% of the time spent with this patient was devoted to counseling and coordination of care. Advanced Care Plannin minutes spent discussing advance care planning. Disposition: Admit to: Med/Surg Observation Full Code Discussed Plan of Care with Dr. Lee Potter. Medications Medication Orders: Medications Ordered Category Date Time Status 0.9 % Sodium Chloride [Saline Flush] Meds 05/16/25 05:07 Active 1 syr IVF PRN PRN Acetaminophen [Tylenol] Meds 05/16/25 09:36 Active 650 mg PO Q4H PRN Cefazolin Sodium/Dextrose,Iso [Ancef 2 gm/50 ml Premix] Meds 05/16/25 13:00 Active 2 gm in 50 ml IV Q8HR Clonazepam [Klonopin] Meds 05/16/25 10:10 Ordered 2 mg PO Q12H PRN ANX Anxiety Insulin Regular, Human [Humulin R (10Ml)] Meds 05/16/25 09:38 Active See Protocol SUBCUT PRN PRN Levothyroxine Sodium [Synthroid] Meds 05/17/25 09:00 Ordered 112 mcg PO DAILY Losartan Potassium [Cozaar] Meds 05/16/25 10:15 Ordered 100 mg PO DAILY Metoprolol Succinate [Toprol Xl] Meds 05/16/25 21:00 Ordered 50 mg PO BEDTIME Vancomycin/Water For Inj (Peg) [Vancomycin 1.5 Gram/300 Meds 05/16/25 13:00 Active ml Premix] 1.5 gm in 300 ml IV Q8HR dextroamphetamine-amphetamine [Adderall XR] Meds 05/16/25 10:15 Ordered 15 mg PO DAILY
[2025-05-16] MEDS: [UNRECOGNIZED DRUG - OTHER] PO SCH (10:30)
[2025-05-16] MEDS: COZAAR PO SCH ×2 (10:30→11:40)
[2025-05-16] MEDS: DEXTROAMPHETAMINE AMPHETAMINE 15 MG PO SCH (10:30)
[2025-05-16] MEDS: PHARM CONSULT:VANCO IV MAINTENANCE DOSING IV ONE (12:01)
[2025-05-16] MEDS: ANCEF 2 GM/50 ML PREMIX 2 GM/50 ML BAG IV SCH (12:22)
[2025-05-16] MEDS: TYLENOL PO PRN (12:29)
[2025-05-16] MEDS: VANCOMYCIN 1.5 GRAM/300 ML PREMIX 1.5 GM/300 ML BAG IV SCH (13:17)
[2025-05-16] MEDS: NON-FORMULARY MEDICATION PO PRN (13:18)
[2025-05-16] MEDS: BENADRYL PO ONE (19:37)
[2025-05-16] MEDS: MELATONIN PO PRN (20:07)
[2025-05-16] MEDS: TOPROL XL PO SCH (20:07)
[2025-05-17 05:23] LABS: IMMATURE GRANULOCYTE # (AUTO) 0.0 (0.0-1.0); IMMATURE GRANULOCYTE % (AUTO) 0.5 % (0.0-5.0); RDW COEFFICIENT OF VARIATION 13.4 % (11.6-14.8)
[2025-05-17 05:29] VITALS: RESP 18
[2025-05-17] MEDS: SYNTHROID PO SCH (05:36)
[2025-05-17 05:43] LABS: CREATININE 0.52 mg/dL (0.60-1.30)
--- NOTE | 2025-05-17 09:27 | DCSUM ---
Admission Date Admission Date: 05/16/25 Discharge Date Discharge Date: 05/17/25 Admission Diagnosis Admission Diagnosis: 1. Cellulitis with blistering to L third finger and L wrist Discharge Diagnosis Discharge Diagnosis: 1. Cellulitis with blistering to L third finger and L wrist - improved 2. HTN 3. ADHD 4. DM2 5. Anxiety Hospital Provider Hospital Provider: ARNOLDO PORTER PA-C, [facility] Primary Care Physician Primary Care Physician: ANA MENDIETA Summary of History and Physical Summary of History and Physical: 54 yo female with pmh of htn, dm2, ADHD, obesity, and anxiety presented to the ER with complaints of blistering to her L third finger and L wrist. Started on 05/09 and was seen in the ER and sent home with Rx for clindamycin. She was seen again in the ER on 05/10 and started on doxycycline as well. Did not take the Doxycycline and has been taking the clindamycin. Blistering to L third finger is now open. Blister to wrist is still present with surrounding redness. States she did not burn herself that she can recall and has not been bit by any insects. Denies any fever, chills, or drainage from the areas. States she has been keeping them covered continuously. Hospital Course Subjective: Patient was treated with cefazolin and vanc. Wound culture of left 3rd finger is showing no growth. Wbc count normal. No fever. Patient states areas are much improved and she is wishing to go home. She recalls possibly being bitten by spiders about 1.5 weeks ago when moving boxes. No central necrosis noted in areas. She also has an area of right superior thigh which is scabbing over, no surrounding erythema. She took the clinda but never picked up the doxycycline she had been prescribed a few days ago. We discussed due to her improvement with antibiotics, will recommend picking up the doxy already at the pharmacy. Also recommend a probiotic. Overall today the blistered areas have no surrounding erythema, drainage, or swelling. Wash gently daily, keep areas clean and dry. F/u with pcp,. Pt agrees to plan of care. Appearance: Pleasant, No Apparent Distress and Alert HEENT: MMM and Supple CVS: Other (RRR) Abdomen: Soft, Non-Tender and No Distention Respiratory: No Accessory Muscle Use Extremities: No Edema Additional Findings: Skin: [place] (to L wrist) and Other (open blistering to left 3rd finger, no obvious drainage, no redness, mild swelling, no induration; healing blister to R upper thigh near groin, no erythema or drainage) Vital Signs: Most Recent Vital Signs Temperature 96.7 F L 05/17/25 05:28 Temperature Source Temporal Artery Scan 05/17/25 05:28 Temperature Source Infrared 05/16/25 04:12 Pulse Rate 77 05/17/25 05:28 Respiratory Rate 18 05/17/25 05:28 Blood Pressure 140/84 05/17/25 05:28 Blood Pressure Mean 102 05/17/25 05:28 Blood Pressure Left Arm 136/85 05/16/25 09:35 Blood Pressure Location Left Arm 05/17/25 05:28 Blood Pressure Position Supine 05/17/25 05:28 O2 Sat by Pulse Oximetry 95 05/17/25 05:28 Oxygen Delivery Method Room Air 05/17/25 09:00 Height 5 ft 7 in 05/16/25 09:35 Weight 126.3 kg 05/16/25 09:35 Telemetry Heart Rate 93 03/11/23 13:00 Telemetry SPO2 90 L 03/11/23 13:00 Imaging: None Lab Results Last 24 Hours: 05/17/25 05:18 WBC 8.35 RBC 3.81 L Hgb 11.6 L Hct 36.4 L MCV 95.5 MCH 30.4 MCHC 31.9 RDW Coeff of [place] 13.4 Plt Count 271 Immature Gran % (Auto) 0.5 Neut % (Auto) 50.9 Lymph % (Auto) 35.3 [place] % (Auto) 7.7 Eos % (Auto) 4.8 Baso % (Auto) 0.8 Neut # (Auto) 4.3 Lymph # (Auto) 3.0 [place] # (Auto) 0.6 Eos # (Auto) 0.4 Baso # (Auto) 0.1 Immature Gran # (Auto) 0.0 Sodium 136.9 Potassium 4.16 Chloride 103.5 Carbon Dioxide 28.3 Anion Gap 9.26 BUN 9.0 Creatinine 0.52 L Estimated GFR (MDRD) 124.00 BUN/Creatinine Ratio 17.30 Glucose 109.3 H Calcium 8.78 Total Bilirubin 0.32 AST 36.5 H ALT 20.1 Alkaline Phosphatase 53.3 Total Protein 6.39 Albumin 3.80 Globulin 2.59 Albumin/Globulin Ratio 1.46 Discharge Instructions Discharge Planning: Discharge Planning > [address] Jenn Potter. Discharge Medications: Medications at Discharge (Home Meds & RX) levothyroxine 112 mcg tablet (Synthroid) 112 mcg PO DAILY 30 days #30 tabs 0 10/02/22 losartan 100 mg tablet 100 mg PO DAILY #30 tabs 03/05/24 cetirizine 10 mg tablet (Allergy Relief (cetirizine)) 10 mg PO DAILY PRN allergy symptoms 12/27/24 clonazepam 2 mg tablet 2 mg PO Q12H PRN anxiety 12/27/24 loperamide 2 mg tablet 2 mg PO Q4H PRN loose stool #20 tabs 03/17/25 doxycycline hyclate 100 mg capsule 100 mg PO BID #20 caps 05/10/25 dextroamphetamine-amphetamine ER 15 mg 24hr capsule,extend release (Adderall XR) 15 mg PO DAILY 05/16/25 metformin 500 mg tablet,extended release 24 hr 500 mg PO QPM 05/16/25 metoprolol succinate 50 mg tablet,extended release 24 hr 50 mg PO BEDTIME 05/16/25 Discharge Plan Discharge Discharge Orders: Discharge Patient (ONCE); Ordered 05/17/25 Ordered By: ARNOLDO PORTER Activity Restrictions/Additional Instructions: DISCHARGE TO HOME DX: CELLULITIS YOU'VE BEEN PRESCRIBED DOXYCYLINE AT [facility], PLEASE PICK IT UP AND TAKE IT F/U WITH PCP FOR RECHECK TAKE A PROBIOTIC DUE TO RECENT ANTIBIOTIC USE Care Plan Goals: Problem: Infection Goal #1: No signs/symptoms of infection Instructions: Monitor for sign/symptoms of infection Monitor temperature Goal #2: White blood cell counts Within Normal Limits Instructions: Obtain labs per physician orders Problem: Anxiety Goal: Experience reduced anxiety Instructions: Identify when level of anxiety changes Identify factors causing anxiety Act to reduce family anxiety Patient Disposition: HOME SELF-CARE Prescriptions: Continued levothyroxine [Synthroid] 112 mcg tablet 112 mcg PO DAILY 30 Days Qty: 30 2RF Patient Comments: PT STATES HAS NOT TAKEN IN 3-4 WEEKS loperamide 2 mg tablet 2 mg PO Q4H PRN (Reason: loose stool) Qty: 20 0RF Rx Instructions: administer after each loose stool until symptoms controlled; do not exceed 8 mg per 24 hrs metoprolol succinate 50 mg tablet extended release 24 hr 50 mg PO BEDTIME metformin 500 mg tablet extended release 24 hr 500 mg PO QPM dextroamphetamine-amphetamine [Adderall XR] 15 mg capsule,extended release 24hr 15 mg PO DAILY losartan 100 mg tablet 100 mg PO DAILY Qty: 30 0RF cetirizine [Allergy Relief (cetirizine)] 10 mg tablet 10 mg PO DAILY PRN (Reason: allergy symptoms) clonazepam 2 mg tablet 2 mg PO Q12H PRN (Reason: anxiety) doxycycline hyclate 100 mg capsule 100 mg PO BID Qty: 20 0RF Discontinued hydrochlorothiazide 12.5 mg capsule 12.5 mg PO DAILY duloxetine 30 mg capsule,delayed release(DR/EC) 30 mg PO DAILY Zepbound 2.5 mg/0.5 mL pen injector 2.5 mg subcut ONCE clindamycin HCl 300 mg capsule 300 mg PO Q8HR hydroxyzine HCl 25 mg tablet 25 mg PO Q6H PRN (Reason: anxiety) lurasidone 20 mg tablet 20 mg PO BEDTIME fluoxetine [Prozac] 20 mg capsule 40 mg PO DAILY bupropion HCl 150 mg tablet extended release 24 hr 150 mg PO QAM trazodone 50 mg tablet 50 mg PO BEDTIME amlodipine 5 mg tablet 5 mg PO DAILY Patient Comments: Pt states stopped per Dr. Mendieta 05/09/25 carvedilol 25 mg tablet 25 mg PO BID Qty: 60 0RF Rx Instructions: must administer with a meal/food Did you review [place] [employer] for ALL controlled substances?: Not Applicable Discussed opioids are addictive and Narcan is available by prescription or from pharmacy.: No Condition: Stable
[2025-05-17 09:59] VITALS: BP 146/80; PULSE 86; TEMP 97.1
== END 2025-05-17 10:05 | disposition home or self-care (01) ==
LOC: MEDSURG B 04:08 → ED 04:08 → MEDSURG B 09:41
PROVIDERS: ADMIT Hospitalist; ATTEND Physician Assistant
DX: S70.221A Blister (nonthermal), right hip, initial encounter; S60.822A Blister (nonthermal) of left wrist, initial encounter; Z79.84 Long term (current) use of oral hypoglycemic drugs; S60.423A Blister (nonthermal) of left middle finger, initial encounter; Z79.899 Other long term (current) drug therapy; F41.9 Anxiety disorder, unspecified; F90.0 Attention-deficit hyperactivity disorder, predominantly inattentive type; L03.114 Cellulitis of left upper limb; I10 Essential (primary) hypertension; E11.9 Type 2 diabetes mellitus without complications; E66.9 Obesity, unspecified; Z51.81 Encounter for therapeutic drug level monitoring; L03.012 Cellulitis of left finger